=== PATIENT | female | born 1970 | race Caucasian/White ===

== ENCOUNTER → 2016-09-13 | Outpatient (CLI) | payer OTHER ==
[2016-09-13 07:24] LABS: CH 29.9; CHCM 32.6; HCT 40.3 % (34.0-46.0); HDW 2.13; HGB 13.3 gm/dL (11.4-16.0); MCH 30.3 pg (25.0-35.0); MCHC 32.9 g/dL (31.0-37.0); MCV 92.2 fL (80.0-100.0); Mean Platelet Volume 7.7; RBC 4.38 m/uL (3.80-5.40); RDW 12.8 % (11.5-15.5); WBC 6.3 k/uL (3.8-10.6)
[2016-09-13 07:27] LABS: Appearance,Urine Clear (Clear); Bacteria,Urine Few /hpf; Bilirubin,Urine Negative (Negative); Glucose,Urine (UA) Negative (Negative); Ketones,Urine Negative (Negative); Leukocyte Esterase,Urine Small (Negative); Mucus,Urine Rare /hpf; Nitrite,Urine Negative (Negative); PH, Urine 5.5 (5.0-8.0); Particle Count 2643; Protein,Urine Negative (Negative); RBC,Urine <1 /hpf (0-5); Specific Gravity,Urine 1.015 (1.001-1.035); Squamous Epithelial Cell,Urine 2 /hpf (0-4); UA Billing (MACRO vs. MICRO) MICRO; Urobilinogen,Urine <2.0 mg/dL (<2.0); WBC,Urine 2 /hpf (0-5)
[2016-09-13 07:47] LABS: ALT 41 U/L (9-52); AST 22 U/L (14-36); Alkaline Phosphatase 103 U/L (38-126); Anion Gap 10 mmol/L; Blood Urea Nitrogen 15 mg/dL (7-17); Calcium 9.2 mg/dL (8.4-10.2); Carbon Dioxide 24 mmol/L (22-30); Chloride 108 mmol/L (98-107); Cholesterol 185 mg/dL (<200); Glucose 88 mg/dL (74-99); HDL Cholesterol 73 mg/dL (40-60); Non-African American GFR(MDRD) >60 (>60 ml/min/1.73 sqM); Potassium 4.8 mmol/L (3.5-5.1); Sodium 142 mmol/L (137-145); Total Bilirubin 0.6 mg/dL (0.2-1.3); Total Protein 6.7 g/dL (6.3-8.2); Triglycerides 64 mg/dL (<150)
--- NOTE | 2016-09-13 08:10 | XR ---
EXAMINATION TYPE: XR chest 2V DATE OF EXAM: 09/13/2016 7:12 AM COMPARISON: Prior chest x-ray December 13, 2015. HISTORY: COPD TECHNIQUE: Frontal and lateral views of the chest are obtained. FINDINGS: There is no focal air space opacity, pleural effusion, or pneumothorax seen. The cardiac silhouette size is within normal limits. The osseous structures are intact. IMPRESSION: No acute cardiopulmonary process. No significant change from prior.
[2016-09-13 08:14] LABS: Hemoglobin A1C 5.3 % (4.2-6.1)
== END | disposition home or self-care (01) ==
LOC: LABWHC1 06:47
PROVIDERS: ATTEND Internal Medicine
DX: J44.9 Chronic obstructive pulmonary disease, unspecified (principal); K21.0 Gastro-esophageal reflux disease with esophagitis; I11.9 Hypertensive heart disease without heart failure; E78.2 Mixed hyperlipidemia; E73.9 Lactose intolerance, unspecified; R35.0 Frequency of micturition
CPT/HCPCS: 36415; 71020; 80053; 80061; 81001; 83036; 84439; 84443; 85027

== ENCOUNTER → 2016-11-01 | Outpatient (CLI) | payer OTHER ==
--- NOTE | 2016-11-01 22:38 | WWHP ---
DATE OF DICTATION: 11/01/2016 CHIEF COMPLAINT: The patient is here for her routine gynecologic exam. HISTORY OF PRESENT ILLNESS: This is a 46-year-old G0 with an LMP of 2014. The patient states she has occasional urge incontinence. She tends to have to urinate fairly frequently and sometimes she does not get to the bathroom in time. She has had her urine checked on different occasions because of these symptoms and apparently the results were negative for infection. She denies nocturia. She states hot flashes are tolerable. She denies any postmenopausal bleeding. PAST MEDICAL HISTORY: 1. Depression. 2. Arthritis. 3. Asthma. 4. Gastroesophageal reflux disease. Dr. Stanford is her primary care physician. MEDICATIONS: 1. Cymbalta 60 mg daily. 2. Voltaren 75 mg b.i.d. 3. Fluticasone drops as directed. 4. Zyrtec 1 at bedtime. 5. Singulair 1 daily. 6. Ranitidine 1 daily. 7. Motrin 800 mg as directed. 8. Ultram t.i.d. p.r.n. 9. Spiriva inhaler daily. 10. Asmanex inhaler daily. 11. Flexeril as directed. ALLERGIES: NO KNOWN DRUG ALLERGIES. PAST SURGICAL HISTORY: 1. Laparotomy with ovarian cyst removal. 2. Appendectomy in 1989. 3. Arthroscopic knee surgery in 2011. 4. Finger surgery in 2009. 5. She states she had a right breast biopsy in the past. 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 FAMILY HISTORY: Unchanged from the 2015 H&P. SOCIAL HISTORY: She smokes about 3/4 pack of cigarettes per day, has about 12 alcoholic drinks per week and admits to using marijuana but denies any other drug use. The patient is homosexual and states she is not seeing anybody at this time and has not been sexually active in quite some time. 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 REVIEW OF SYSTEMS: She has lost about 55 pounds with changing her diet. She denies respiratory, cardiac or GI problems. PHYSICAL EXAM: Blood pressure 120/83. Height 5 feet 3 inches. Weight 192 pounds. Temperature 96.0, pulse 83. This is a well-developed, well-nourished white female who is alert and oriented x3, in no acute distress. HEENT is within normal limits. NECK: Supple without mass or thyromegaly. CHEST AND LUNGS: Clear to auscultation. HEART: Regular rate and rhythm. Breasts are without mass or discharge. Axillary exam is negative for adenopathy. BACK: Negative for CVA tenderness. ABDOMEN: Soft, nontender, without palpable masses. PELVIC EXAM: Normal external genitalia. Cervix and vagina appear normal. There is no evidence of prolapse. There is no unusual discharge. The uterus is midposition, nongravid size and nontender. There are no palpable adnexal masses or tenderness. Upon palpating the bladder, the patient does state she gets a sense of some urge to go, and the bladder feels somewhat full at this time. Rectal exam is negative for mass or tenderness and is negative for occult blood. EXTREMITIES: Nontender. IMPRESSION: 1. A 46-year-old postmenopausal female with normal gynecologic exam. 2. Occasional urinary urgency and urge incontinence. This may also represent overflow incontinence. PLAN: 1. Pap smear was deferred, since she had a normal one less than 2 years ago. 2. Self breast examination was discussed. 3. Mammogram will be due in 02/26, and a slip was given to the patient for this. 4. We had a long discussion regarding urge incontinence. I have recommended she do timed voids and try to empty her bladder as completely as possible with relaxation and giving herself enough time. She is to avoid bearing down to empty the bladder. She will also do Kegel exercises on a regular basis, and instructions were given to the patient on this. If she continues to have urinary issues, consider referral to a urologist. 5. She will return in one year and p.r.n.
== END | disposition home or self-care (01) ==
LOC: WWCWWP 08:57
PROVIDERS: ATTEND Obstetrics & Gynecology

== ENCOUNTER → 2017-02-19 | Outpatient (CLI) | payer OTHER ==
--- NOTE | 2017-02-20 07:32 | MM ---
Reason for exam: screening (asymptomatic). Last mammogram was performed 1 year ago. History: Patient is postmenopausal and is nulliparous. Family history of breast cancer in mother. Benign US biopsy breast VAD RT of the right breast, July 20, 2015. Physical Findings: A clinical breast exam by your physician is recommended on an annual basis and results should be correlated with mammographic findings. MG Screening Mammo w CAD Bilateral CC and MLO view(s) were taken. Prior study comparison: February 17, 2016, bilateral MG diagnostic mammo w CAD LEANN. July 20, 2015, right breast MG diagnostic mammo RT wo CAD. There are scattered fibroglandular densities. Finding: There are typically benign round calcifications in both breasts. Previous mammotome biopsy in the right breast. There is no discrete abnormality. ASSESSMENT: Benign, BI-RAD 2 RECOMMENDATION: Routine screening mammogram of both breasts in 1 year.
== END | disposition home or self-care (01) ==
LOC: RADMAMWWP 09:45
PROVIDERS: ATTEND Obstetrics & Gynecology
DX: Z12.31 Encounter for screening mammogram for malignant neoplasm of breast (principal)

== ENCOUNTER → 2017-06-27 | Outpatient (CLI) | payer OTHER ==
--- NOTE | 2017-06-27 10:52 | P.PCN ---
Date of Procedure: 06/27/17 Preoperative Diagnosis: Post menopausal bleeding Postoperative Diagnosis: Same Procedure(s) Performed: Endometrial biopsy Anesthesia: none Surgeon: Ranjit Villalta Condition: stable Disposition: same day Indications for Procedure: This is a 47-year-old G0 with an LNMP of 2014. The patient developed a small amount of vaginal bleeding 2 weeks ago. She states the blood was dark and this lasted a few days. The bleeding stopped. During the bleeding she had some period-like cramping. She has not used HRT or any medication or supplements for menopausal symptoms. Operative Findings: The uterus is mid position, non-gravid size and nontender. The uterus measured 7 cm. Small amount of tissue was obtained. Description of Procedure: The endometrial biopsy procedure was described to the patient. All of her questions were answered. The patient was placed in the lithotomy position. Bimanual examination was performed. The uterus is mid- positioned and is non- gravid size. The speculum was inserted and the cervix and vagina were prepped with betadine solution. And Allys clamp was used to grasp the anterior lip of the cervix.. The 3mm endometrial biopsy curette was placed to the fundus without difficulty. The uterus sounded to 7 cm. a [id number] rotating motion was used and a small amount of tissue was obtained and sent for pathological examination. The patient tolerated the procedure well. There were no complications. The post procedure vitals are as follows: blood pressure 133/88. pulse 85. Post procedure instructions were given to the patient.
== END ==
LOC: WWCWWP 09:13
PROVIDERS: ATTEND Obstetrics & Gynecology
DX: N93.9 Abnormal uterine and vaginal bleeding, unspecified (principal)
CPT/HCPCS: 88305

== ENCOUNTER → 2018-02-24 | Outpatient (CLI) | payer OTHER | END | disposition home or self-care (01) | LOC: LABPRL 09:35 | PROVIDERS: ATTEND Internal Medicine | DX: Z00.00 Encounter for general adult medical examination without abnormal findings (principal); J44.9 Chronic obstructive pulmonary disease, unspecified; K21.0 Gastro-esophageal reflux disease with esophagitis; M79.7 Fibromyalgia | CPT/HCPCS: 82272 ==

== ENCOUNTER → 2018-02-25 | Outpatient (CLI) | payer OTHER ==
--- NOTE | 2018-02-26 10:18 | MM ---
Reason for exam: screening (asymptomatic). Last mammogram was performed 1 year ago. History: Patient is postmenopausal and is nulliparous. Family history of breast cancer in mother. Benign US biopsy breast VAD RT of the right breast, July 20, 2015. Physical Findings: A clinical breast exam by your physician is recommended on an annual basis and results should be correlated with mammographic findings. MG Screening Mammo w CAD Bilateral CC and MLO view(s) were taken. Prior study comparison: February 19, 2017, bilateral MG screening mammo w CAD. February 17, 2016, bilateral MG diagnostic mammo w CAD LEANN. There are scattered fibroglandular densities. Finding: There are typically benign round calcifications in both breasts, greater in the right breast. Previous mammotome biopsy in the right breast. There is no discrete abnormality. ASSESSMENT: Benign, BI-RAD 2 RECOMMENDATION: Routine screening mammogram of both breasts in 1 year.
== END | disposition home or self-care (01) ==
LOC: RADMAMWWP 08:04
PROVIDERS: ATTEND Internal Medicine
DX: Z12.31 Encounter for screening mammogram for malignant neoplasm of breast (principal); Z00.00 Encounter for general adult medical examination without abnormal findings; M79.7 Fibromyalgia; K21.0 Gastro-esophageal reflux disease with esophagitis; J44.9 Chronic obstructive pulmonary disease, unspecified
CPT/HCPCS: 77067

== ENCOUNTER → 2018-02-27 | Outpatient (CLI) | payer OTHER ==
[2018-02-27 08:47] LABS: HCT 42.1 % (34.0-46.0); HGB 13.5 gm/dL (11.4-16.0); MCH 29.3 pg (25.0-35.0); MCV 91.5 fL (80.0-100.0); Platelet Count 292 k/uL (150-450); RDW 13.5 % (11.5-15.5); WBC 5.8 k/uL (3.8-10.6)
[2018-02-27 09:32] LABS: Albumin 4.3 g/dL (3.5-5.0); Calcium 9.4 mg/dL (8.4-10.2); Potassium 4.6 mmol/L (3.5-5.1); Total Bilirubin 0.5 mg/dL (0.2-1.3); Total Protein 6.8 g/dL (6.3-8.2)
[2018-02-27 09:40] LABS: T4, Free (Free Thyroxine) 1.31 ng/dL (0.78-2.19)
== END | disposition home or self-care (01) ==
LOC: LABWHC1 08:18
PROVIDERS: ATTEND Internal Medicine
DX: Z00.00 Encounter for general adult medical examination without abnormal findings (principal); M79.7 Fibromyalgia; K21.0 Gastro-esophageal reflux disease with esophagitis; J44.9 Chronic obstructive pulmonary disease, unspecified
CPT/HCPCS: 36415; 80053; 80061; 84439; 84443; 85027

== ENCOUNTER → 2018-07-17 | Outpatient (CLI) | payer OTHER ==
[2018-07-17 10:58] VITALS: BP 149/93; PULSE 101; TEMP 96.3; BMI 38.6
--- NOTE | 2018-07-17 11:54 | P.HPOB ---
History of Present Illness H&P Date: 07/17/18 Chief Complaint: The patient is here for her routine gynecologic exam. This is a 48-year-old G0 with an LMP of 2014. The patient is without gynecologic complaints and denies any postmenopausal bleeding since the small episode 13 months ago. She did have a benign endometrial biopsy on 06/27/2017. Review of Systems The patient has gained 33 pounds over the last year. This was after losing 55 pounds prior to last year. She states she is going to try to get back to eating healthier and not skipping meals. She denies respiratory, cardiac, or G.I. problems. 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 History of Any Multi-Drug Resistant Organisms: None Reported Past Surgical History: Appendectomy, Breast Surgery (Right breast biopsy) Additional Past Surgical History / Comment(s): finger surgery, hand cyst removed , left knee surgery, ovarian cyst removal (possible oophorectomy) 1989 Past Psychological History: Depression Smoking Status: Current every day smoker (Three quarters of a pack of cigarettes per day.) Past Alcohol Use History: Daily (1-2 per day) Past Drug Use History: Marijuana Additional History: The patient is homosexual and is single and is not seeing anybody at this time. 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 - Past Family History Mother Family Medical History: Cancer (Breast cancer), Coronary Artery Disease (CAD) Additional Family Medical History / Comment(s): Grandparents had an GA. Medications and Allergies Home Medications Medication Instructions Recorded Confirmed Type DULoxetine HCL [Cymbalta] 60 mg PO DAILY 02/01/16 07/17/18 History Albuterol Inhaler [Ventolin Hfa mcg INHALATION PRN 07/17/18 History Inhaler] Amitriptyline HCl [Elavil] 25 mg PO HS 07/17/18 07/17/18 History Atorvastatin [Lipitor] 20 mg PO DAILY 07/17/18 07/17/18 History Cetirizine HCl [Zyrtec] mg PO DAILY 07/17/18 History Cyclobenzaprine [Flexeril] 10 mg PO BID 07/17/18 07/17/18 History Diclofenac Sodium [Voltaren] 75 mg PO BID 07/17/18 07/17/18 History Fluticasone Propionate [Flovent mcg PO BID 07/17/18 History Diskus] Fluticasone/Salmeterol PO BID 07/17/18 History [Fluticasone-Salmeterol 113-14] Montelukast [Singulair] 10 mg PO DAILY 07/17/18 07/17/18 History Allergies Allergy/AdvReac Type Severity Reaction Status Date / Time No Known Allergies Allergy Verified 07/17/18 10:57 Exam Vital Signs Temp Pulse BP 07/17/18 10:37 96.3 F L 101 H 149/93 Intake and Output 07/16/18 07/17/18 07/17/18 22:59 06:59 14:59 Other: Weight 102.058 kg Height 5'4", waits 225 pounds, BMI 38.6. This is a well-developed well-nourished heavyset white female who is alert and oriented times 3 in no acute distress. HEENT: Within normal limits. NECK: Supple without mass or thyromegaly. CHEST AND LUNGS: Clear to auscultation. HEART: Regular rate and rhythm. BREASTS: Are without mass or discharge. AXILLARY EXAM: Negative for adenopathy. BACK: Negative for CVA tenderness. ABDOMEN: Soft, obese, nontender, without palpable masses. PELVIC EXAM: Normal external genitalia with mild atrophy. Cervix and vagina appear normal with mild atrophy. There is no unusual discharge. There is no evidence of prolapse. The uterus is midposition, nongravid size and nontender. There are no palpable adnexal masses or tenderness. RECTAL EXAM: rectovaginal exam is negative for mass or tenderness and is negative for occult blood. EXTREMITIES: Nontender. IMPRESSION: 1. 48-year-old menopausal female with normal gynecologic exam. 2. No further postmenopausal bleeding after the endometrial biopsy was done for small bleeding 13 months ago. PLAN: 1. Pap smear was performed. 2. Self breast awareness was discussed with the patient. 3. Screening mammogram was done on 02/25/2017 and was negative. She will repeat this in one year. 4. Osteoporosis prevention was discussed. I have stressed the importance of adequate calcium, vitamin D and regular exercise. Recommended amounts of calcium and vitamin D were also discussed. 5. I have recommended that she quit smoking, or at least cut back as much as possible. We have discussed reasons why this is important. 6. She will return in one year.
== END ==
LOC: WWCWWP 10:25
PROVIDERS: ATTEND Obstetrics & Gynecology
DX: Z53.9 Procedure and treatment not carried out, unspecified reason (principal)

== ENCOUNTER → 2018-07-17 | Outpatient (CLI) | payer OTHER | END | disposition home or self-care (01) | LOC: LABWHC1 09:59 | PROVIDERS: ATTEND Internal Medicine | DX: E78.2 Mixed hyperlipidemia (principal) | CPT/HCPCS: 36415; 80061; 82550; 84450; 84460 ==

== ENCOUNTER → 2018-11-05 | Outpatient (CLI) | payer OTHER ==
[2018-11-05 07:19] LABS: HCT 39.2 % (34.0-46.0); HGB 12.9 gm/dL (11.4-16.0); MCHC 32.9 g/dL (31.0-37.0); MCV 91.2 fL (80.0-100.0); Mean Platelet Volume 7.8; Platelet Count 235 k/uL (150-450); WBC 6.6 k/uL (3.8-10.6)
[2018-11-05 07:24] LABS: INR 0.9 (<1.2); Partial Thromboplastin Time 23.7 sec (22.0-30.0); Prothrombin Time 9.7 sec (9.0-12.0)
[2018-11-05 07:26] LABS: Anion Gap 6 mmol/L; Blood Urea Nitrogen 10 mg/dL (7-17); Calcium 9.5 mg/dL (8.4-10.2); Carbon Dioxide 26 mmol/L (22-30); Chloride 108 mmol/L (98-107); Glucose 89 mg/dL (74-99); Potassium 4.5 mmol/L (3.5-5.1); Sodium 140 mmol/L (137-145)
--- NOTE | 2018-11-05 08:02 | XR ---
EXAMINATION TYPE: XR chest 2V DATE OF EXAM: 11/05/2018 COMPARISON: September 13, 2016 HISTORY: Chest pain TECHNIQUE: Frontal and lateral views of the chest are obtained. FINDINGS: There is no focal air space opacity. No evidence for pneumothorax. No pleural effusion. The cardiac silhouette size is within normal limits. The osseous structures are grossly intact. IMPRESSION: 1. No acute cardiopulmonary process.
[2018-11-05 09:14] LABS: Appearance,Urine Clear (Clear); Bilirubin,Urine Negative (Negative); Blood,Urine Negative (Negative); Color,Urine Light Yellow; Glucose,Urine (UA) Negative (Negative); Ketones,Urine Negative (Negative); Leukocyte Esterase,Urine Negative (Negative); Nitrite,Urine Negative (Negative); Protein,Urine Negative (Negative); Specific Gravity,Urine 1.005 (1.001-1.035); Urobilinogen,Urine <2.0 mg/dL (<2.0)
== END | disposition home or self-care (01) ==
LOC: RADXRMAIN 06:04
PROVIDERS: ATTEND Internal Medicine
DX: Z01.818 Encounter for other preprocedural examination (principal); J44.9 Chronic obstructive pulmonary disease, unspecified; R35.0 Frequency of micturition; D68.9 Coagulation defect, unspecified; I49.9 Cardiac arrhythmia, unspecified
CPT/HCPCS: 71046; 80048; 81003; 85027; 85610; 85730; 93005

== ENCOUNTER → 2019-03-12 | Outpatient (CLI) | payer OTHER ==
--- NOTE | 2019-03-12 10:51 | XR ---
EXAMINATION TYPE: XR lumbosacral spine min 4V DATE OF EXAM: 03/12/2019 COMPARISON: 12/30/2014 HISTORY: 48-year-old female arthritis, low back pain, radiculopathy. TECHNIQUE: 5 views FINDINGS: Degenerated levoconvex curvature along the upper lumbar spine. No pars interarticularis defect. Hyper trophic facet arthropathy throughout. Moderate to advanced disc/endplate degenerative change from L2 to S1 levels, progressed from 12/30/2014. Grade 1 retrolisthesis at L2-L3 and L3-L4 and grade 1 anterolisthesis at L4-L5. Vertebral body heights are preserved. Additional endplate spondylosis visualized lower thoracic spine IMPRESSION: As compared to 2014, there has been progression to a degenerated levoconvex curvature along the upper lumbar spine. Advanced degenerative disc disease now present from L2 through S1 levels along with hy pertrophic facet arthropathy and degenerative grade 1 spondylolisthesis from L2 through L5 levels.
--- NOTE | 2019-03-12 10:53 | XR ---
EXAMINATION TYPE: XR Hip Bilateral Complete DATE OF EXAM: 03/12/2019 COMPARISON: NONE HISTORY: 48-year-old female I lateral hip pain TECHNIQUE: 2 views each side FINDINGS: Mild marginal spurring along the right acetabular margin and posterior right femoral head neck juncti on. No acute fracture, subluxation, or dislocation seen on either side. IMPRESSION: Mild right hip OA. No acute osseous abnormality seen on either side.
== END | disposition home or self-care (01) ==
LOC: RADXRMAIN 09:39
PROVIDERS: ATTEND Internal Medicine
DX: M16.11 Unilateral primary osteoarthritis, right hip (principal); M51.17 Intervertebral disc disorders with radiculopathy, lumbosacral region; M43.16 Spondylolisthesis, lumbar region; M46.96 Unspecified inflammatory spondylopathy, lumbar region
CPT/HCPCS: 72110; 73521

== ENCOUNTER → 2019-07-02 | Outpatient (CLI) | payer OTHER ==
[2019-07-02 12:53] VITALS: BP 126/86; PULSE 98; RESP 16
--- NOTE | 2019-07-02 14:32 | P.PAINCN ---
History of Present Illness - Reason for Consult Consult date: 07/02/19 - History of Present Illness This is a 49-year-old patient referred by Dr. Allen with a chief complaint of chronic pain in bilateral low back, radiating to bilateral lateral thighs. She states that she initially noticed the pain in her right lateral thigh, approximately 5 years ago and then left lateral thigh, approximately 2 years ago. The pain in her back began later. She describes several episodes of "charley horses" in multiple different locations in bilateral lower extremities. Pain is described as sharp, stabbing, burning, associated with numbness and tingling in bilateral lateral thighs. She denies leg weakness. Pain is worse with walking, standing, better with bending forward, chiropractic therapy, Voltaren gel and Flexeril. Positive shopping cart sign. 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 She is many extremely difficult to work. She was evaluated by Dr. Allen, who recommended interventional pain management prior to consideration of posterior lumbar decompression and fusion at L2-3, L 34, L 5S1. The patient states that she cannot be off work for the amount of time it would take to recover from lumbar surgery, she is the only one caring for herself. Patient also denies new-onset weakness, bowel/bladder incontinence, or any other signs or symptoms of cauda equina syndrome. There are no signs of acute intoxication, and no indications of medication diversion or overuse. She does use marijuana daily to help with pain. She also has significant pain in her left shoulder, she follows with an orthopedic surgeon for this in last underwent a steroid injection in May. Patient HAS NOT had injections in her low back previously. Patient HAS NOT had physical therapy recently for her low back, although she recently completed physical therapy for left shoulder. In addition to above, 13-point review of systems is also negative for chest pain, shortness of breath, changes in vision, changes in hearing, new onset weakness, abdominal pain, diarrhea, extreme fatigue, malaise, fever, skin changes, homicidal or suicidal ideation, or bowel or bladder incontinence. 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 History of Any Multi-Drug Resistant Organisms: None Reported Past Surgical History: Appendectomy, Breast Surgery, Orthopedic Surgery Additional Past Surgical History / Comment(s): finger surgery, hand cyst removed, left knee surgery, ovarian cyst removal (oophorectomy) 1989, breast biopsy, left shoulder surg. Past Anesthesia/Blood Transfusion Reactions: No Reported Reaction Smoking Status: Current every day smoker Past Alcohol Use History: Daily (Patient drinks 6 shots per day of hard liquor), Heavy Past Drug Use History: Marijuana (Daily) - Past Family History Mother Family Medical History: Cancer, Coronary Artery Disease (CAD) Additional Family Medical History / Comment(s): Grandparents had an SD. Medications and Allergies Home Medications Medication Instructions Recorded Confirmed Type DULoxetine HCL [Cymbalta] 60 mg PO DAILY 02/01/16 06/27/19 History Albuterol Inhaler [Ventolin Hfa 90 mcg INHALATION Q6H PRN 07/17/18 06/27/19 History Inhaler] Atorvastatin [Lipitor] 20 mg PO DAILY 07/17/18 06/27/19 History Cetirizine HCl [Zyrtec] 10 mg PO DAILY 07/17/18 06/27/19 History Cyclobenzaprine [Flexeril] 10 mg PO BID 07/17/18 06/27/19 History Diclofenac Sodium [Voltaren] 75 mg PO BID 07/17/18 06/27/19 History Fluticasone/Salmeterol 1 dose INHALATION BID 07/17/18 06/27/19 History [Fluticasone-Salmeterol 113-14] Montelukast [Singulair] 10 mg PO DAILY 07/17/18 06/27/19 History Fluticasone Nasal Hollins [Flonase 2 spr EA NOSTRIL BID 06/27/19 06/27/19 History Nasal Hollins] Lisinopril [Zestril] 5 mg PO DAILY 06/27/19 06/27/19 History Omeprazole [PriLOSEC] 20 mg PO AC-BID 06/27/19 06/27/19 History Allergies Allergy/AdvReac Type Severity Reaction Status Date / Time No Known Allergies Allergy Verified 06/27/19 14:26 Physical Exam Physical exam: Vital Signs: Reviewed in EMR GENERAL: Well appearing, in no acute distress, obese PSYCH: Mood and affect is appropriate. Awake, alert, and oriented SKIN: Skin color, texture, turgor normal, no rashes or lesions HEENT: Normocephalic, atraumatic. EOM intact CV: No pedal edema RESP: Respirations are unlabored, no audible wheezing GI: Abdomen non-distended MUSCULOSKELETAL: Bilateral lower extremity strength is normal and symmetric. No atrophy or tone abnormalities are noted. Lumbar spine: Straight leg raising in the sitting position is negative for radicular pain. Tenderness to palpation over the lumbar spine and paraspinous muscles bilaterally. Negative for pain with facet loading and back extension/rotation. Buttocks: No pain to palpation over the PSIS, Ramon test is negative Extremities: Peripheral joint ROM is full and pain free without obvious instability or laxity in all four extremities. No edema or skin discolorations noted. Tenderness to palpation over right greater trochanter area. Gait: Gait is normal NEUR: Bilateral lower extremity coordination and muscle stretch reflexes are physiologic and symmetric. Negative clonus. Reduced sensation to light touch noted in bilateral lateral thighs, up to knees. Cranial nerves are grossly intact. Results Results: Imaging: X-ray lumbar spine done on 03/12/2019 shows advanced degenerative disc disease from L2 through S1 along with hypertrophic facet arthropathy and grade 1 spondylolisthesis from L2 to L5 levels MRI lumbar spine done at [facility] on 05/19/2019 shows at L2-3 moderate central canal stenosis, lateral recess stenosis right greater than left with contact of the L3 nerve roots right greater than left and moderate to severe neuroforaminal stenosis bilaterally. At L3-4 moderate to severe central canal stenosis, lateral recess stenosis with contact of the L4 nerve roots left greater than right and moderate bilateral neuroforaminal stenosis. At L4-5 severe central canal stenosis, lateral recess stenosis with contact of L5 nerve roots and severe left/mild right neuroforaminal stenosis. At L5-S1 mild central canal stenosis, lateral recess stenosis and moderate severe right/moderate left foraminal stenosis. Assessment and Plan Assessment: 1. Lumbar radiculopathy 2. Lumbar central spinal stenosis, lumbar degenerative disc disease, facet arthropathy 3. Obesity Plan: 1. Explanation: We discussed that her interventional pain procedures are designed to target pain, they do not alter the degeneration or spinal stenosis that is present. She expressed understanding. We also discussed that if our procedures do not have significant benefit, she will likely need surgery given her severe disease. 2. Opioid agreement: None 3. Counseling: The patient was counseled on the importance of EXERCISE. She does not have any physical therapy sessions left until August 2019, at which time we will plan on providing her with a prescription for home exercise therapy 4. Procedures: We'll schedule bilateral L34 lumbar transforaminal epidural steroid injection, given her primarily bilateral lateral thigh pain. In the future, could consider L4-5 TFESI. 5. Consultations: None 6. Investigations: MRI and x-rays reviewed 7. Medications: Patient was instructed to take calcium plus vitamin D supplementation daily. She can continue to take magnesium for cramping. 8. Disposition: For above-mentioned procedure PQRS Measure Charge Sheet Measure #130: Documentation of Current Meds in Medical Chart: Patient's medications documented in chart Measure #226: Tobacco Use: Screen & Cessation Intervention: Pt screened for tobacco use AND intervention given Measure #111: Pneumonia Vaccination: Pneumococcal vaccine administered or previously received Measure #47: Advance Care Plan: Advance care planning discussed & documented, pt chose/unable to give Measure #412: Opioid Treatment Agreement: No documentation of signed opioid treatment agreement Measure #317: Preventitive Care & Scrn High Bld Press & F/U: Normal blood pressure, f/u not required Measure #128: Body Mass Index (BMI) Screening & Follow-up: BMI documented ABOVE normal parameters - f/u documented Measure #131: Pain Assessment & Follow-up: Pain positive & plan documented, Follow-up scheduled Measure #431: Unhealthy Alcohol Use Preventative Care & Scrn: Patient identified as unhealthy alcohol user; counseling given PQRS Narrative: Smoking Status Current every day smoker Pain Intensity [Lower Back] 4 Scale Used Numeric (1 - 10) Hx Alcohol Use (MH) Yes Home Medications: Ambulatory Orders DULoxetine HCL [Cymbalta] 60 mg PO DAILY 02/01/16 Albuterol Inhaler [Ventolin Hfa Inhaler] 90 mcg INHALATION Q6H PRN 07/17/18 Atorvastatin [Lipitor] 20 mg PO DAILY 07/17/18 Cetirizine HCl [Zyrtec] 10 mg PO DAILY 07/17/18 Cyclobenzaprine [Flexeril] 10 mg PO BID 07/17/18 Diclofenac Sodium [Voltaren] 75 mg PO BID 07/17/18 Fluticasone/Salmeterol [Fluticasone-Salmeterol 113-14] 1 dose INHALATION BID 07/17/18 Montelukast [Singulair] 10 mg PO DAILY 07/17/18 Fluticasone Nasal Hollins [Flonase Nasal Hollins] 2 spr EA NOSTRIL BID 06/27/19 Lisinopril [Zestril] 5 mg PO DAILY 06/27/19 Omeprazole [PriLOSEC] 20 mg PO AC-BID 06/27/19
== END | disposition home or self-care (01) ==
LOC: PNWHC3 12:34
PROVIDERS: ATTEND Anesthesiology
DX: M48.061 Spinal stenosis, lumbar region without neurogenic claudication (principal); M51.16 Intervertebral disc disorders with radiculopathy, lumbar region; M46.96 Unspecified inflammatory spondylopathy, lumbar region; E66.9 Obesity, unspecified; J45.909 Unspecified asthma, uncomplicated; E78.5 Hyperlipidemia, unspecified; I10 Essential (primary) hypertension; M19.90 Unspecified osteoarthritis, unspecified site; F17.200 Nicotine dependence, unspecified, uncomplicated; Z68.34 Body mass index [BMI] 34.0-34.9, adult; Z79.1 Long term (current) use of non-steroidal anti-inflammatories (NSAID); Z79.51 Long term (current) use of inhaled steroids; Z79.899 Other long term (current) drug therapy
CPT/HCPCS: 99211

== ENCOUNTER 2019-07-09 05:59 | Day surgery (SDC) | payer OTHER ==
[2019-07-09 06:32] VITALS: RESP 18; TEMP 98
[2019-07-09] MEDS: LACTATED RINGERS 1,000 ML IV SCH ×2 (06:40→07:04)
[2019-07-09 06:41] LABS: Glucose,Whole Blood 94 mg/dL (75-99)
--- NOTE | 2019-07-09 07:25 | P.PCN ---
Date of Procedure: 07/09/19 Procedure(s) Performed: PREOPERATIVE DIAGNOSIS: Lumbar radiculopathy POSTOPERATIVE DIAGNOSIS: Lumbar radiculopathy Attending physician: Gwendolyn Richards M.D. PROCEDURE 1. Transforaminal epidural steroid injection under fluoroscopic guidance L3-4 level, bilateral side 2. Lumbar epidurogram ANESTHESIA: Local with 1% lidocaine 3 ml ; IV sedation with Versed and fentanyl , sedation time 12 minutes PROCEDURE INDICATION: The patient with low back pain and radiculopathy symptoms unresponsive to conservative treatment. Fluoroscopy was used for the procedure and fluoroscopic images were saved to the radiology portion of patient's chart. PROCEDURE DESCRIPTION / TECHNIQUE: The patient was seen and identified in the preoperative area. Risks, benefits, complications, and alternatives were discussed with the patient. The patient agreed to proceed with the procedure and signed the consent. IV was started, and vital signs were stable. Patient was taken to the OR and time out was completed. The patient was placed in the prone position on procedure table and a pillow was placed under the abdomen to reduce lumbar lordosis. The lumbosacral area was prepped and draped in the usual sterile fashion. Vital signs were closely monitored during the procedure. Conscious sedation was used. Using oblique fluoroscopy, the chin of the ``Sandeep dog and the skin and deeper tissues just below was localized with 1% lidocaine. Subsequently, a 22- gauge 3.5-inch spinal needle was advanced under a tunneled view fluoroscopic guidance just underneath the chin of the ``Sandeep dog . Under lateral fluoroscopy, the needle was then advanced to the posterior border of the foramen. After negative aspiration of CSF and blood and with no paresthesias, 1 mL of Isovue-200 contrast dye was injected under live fluoroscopy and there was no evidence of intravascular injection. The injectate solution consisting of 7.5 mg of dexamethasone with 1 mL of 1% lidocaine was then delivered at each site. A total of 15 mg of dexamethasone was used. The needle was withdrawn intact. At the end of the procedure, skin was cleansed, and bandages were applied. COMPLICATIONS: None COMMENTS: DISPOSITION / PLANS: The patient was placed in a supine position and transferred to the recovery area in a stable condition for observation. There was no evidence of lower extremity motor or sensory deficit after the procedure. Patient was discharged from the recovery room after meeting discharge criteria. Home discharge instructions were given to the patient by the staff. The patient will follow up in clinic in 2-4 weeks.
[2019-07-09] MEDS ORDERED: IV FLUID CONTINUATION 1,000 ML IV ONE ×2 (07:27)
[2019-07-09 07:43] VITALS: BP 146/85; PULSE 83
--- NOTE | 2019-07-09 08:50 | FL ---
Fluoroscopy INDICATION: Pain FINDINGS: Fluoroscopy time: 0.13 seconds. Images obtained: 0. IMPRESSIONS: 1. Documentation of fluoroscopy.
== END 2019-07-09 07:54 | disposition home or self-care (01) ==
LOC: ORPAIN 05:59
PROVIDERS: ATTEND Anesthesiology
DX: G89.29 Other chronic pain (principal); M51.16 Intervertebral disc disorders with radiculopathy, lumbar region; M47.26 Other spondylosis with radiculopathy, lumbar region; M48.061 Spinal stenosis, lumbar region without neurogenic claudication; E66.9 Obesity, unspecified; M62.831 Muscle spasm of calf; M25.512 Pain in left shoulder; J45.909 Unspecified asthma, uncomplicated; K21.9 Gastro-esophageal reflux disease without esophagitis; E78.5 Hyperlipidemia, unspecified; I10 Essential (primary) hypertension; M19.90 Unspecified osteoarthritis, unspecified site; F17.210 Nicotine dependence, cigarettes, uncomplicated; Z68.34 Body mass index [BMI] 34.0-34.9, adult; Z90.49 Acquired absence of other specified parts of digestive tract; Z98.890 Other specified postprocedural states; Z90.721 Acquired absence of ovaries, unilateral; Z79.899 Other long term (current) drug therapy; Z79.51 Long term (current) use of inhaled steroids; Z80.9 Family history of malignant neoplasm, unspecified; Z82.49 Family history of ischemic heart disease and other diseases of the circulatory system
CPT/HCPCS: 64483; J2250; J1100; J3010; Q9966; 99152

== ENCOUNTER 2019-08-18 08:09 | Day surgery (SDC) | payer OTHER ==
[2019-08-08 15:28] VITALS: BMI 34.2
[~2019-08-18 08:09] MED LIST: BUPIVACAINE (PF) 0.5% 30 ML VIAL ONE; IOPAMIDOL M200 10 ML VIAL ONE; LACTATED RINGERS 1,000 ML IV SCH; MIDAZOLAM 2 MG/2 ML VIAL ONE; fentaNYL (PF) 50 MCG/ML 2 ML AMP ONE; methylPREDNISolone ACETATE 40 MG/ML 1 ML VIAL ONE
[2019-08-18] MEDS ORDERED: LIDOCAINE 1% 20 ML VIAL (10MG/ML) FOR IV START SQ ONE (10:05)
[2019-08-18 10:11] VITALS: RESP 16; TEMP 97.3
[2019-08-18] MEDS ORDERED: IV FLUID CONTINUATION 700 ML IV ONE (10:32)
--- NOTE | 2019-08-18 10:33 | P.PCN ---
Date of Procedure: 08/18/19 Procedure(s) Performed: PREOPERATIVE DIAGNOSIS: Lumbar radiculopathy POSTOPERATIVE DIAGNOSIS: Lumbar radiculopathy Attending physician: Gwendolyn Richards M.D. PROCEDURE 1. Transforaminal epidural steroid injection under fluoroscopic guidance L3-4 level, bilateral side 2. Lumbar epidurogram ANESTHESIA: Local with 1% lidocaine 3 ml ; IV sedation with Versed and fentanyl , sedation time 13 minutes PROCEDURE INDICATION: The patient with low back pain and radiculopathy symptoms unresponsive to conservative treatment. Fluoroscopy was used for the procedure and fluoroscopic images were saved to the radiology portion of patient's chart. PROCEDURE DESCRIPTION / TECHNIQUE: The patient was seen and identified in the preoperative area. Risks, benefits, complications, and alternatives were discussed with the patient. The patient agreed to proceed with the procedure and signed the consent. IV was started, and vital signs were stable. Patient was taken to the OR and time out was completed. The patient was placed in the prone position on procedure table and a pillow was placed under the abdomen to reduce lumbar lordosis. The lumbosacral area was prepped and draped in the usual sterile fashion. Vital signs were closely monitored during the procedure. Conscious sedation was used. Using oblique fluoroscopy, the chin of the ``Sandeep dog and the skin and deeper tissues just below was localized with 1% lidocaine. Subsequently, a 22- gauge 5-inch spinal needle was advanced under a tunneled view fluoroscopic guidance just underneath the chin of the ``Sandeep dog . Under lateral fluoroscopy, the needle was then advanced to the posterior border of the foramen. After negative aspiration of CSF and blood and with no paresthesias, 1 mL of Isovue-200 contrast dye was injected under live fluoroscopy and there was no evidence of intravascular injection. The injectate solution consisting of 7.5 mg of dexamethasone with 1 mL of 1% lidocaine was then delivered at each site. A total of 15 mg of dexamethasone was used. The needle was withdrawn intact. At the end of the procedure, skin was cleansed, and bandages were applied. COMPLICATIONS: None COMMENTS: DISPOSITION / PLANS: The patient was placed in a supine position and transferred to the recovery area in a stable condition for observation. There was no evidence of lower extremity motor or sensory deficit after the procedure. Patient was discharged from the recovery room after meeting discharge criteria. Home discharge instructions were given to the patient by the staff. The patient will follow up in clinic in 2-4 weeks.
--- NOTE | 2019-08-18 10:42 | FL ---
EXAMINATION TYPE: FL guided pain mgmt statistic DATE OF EXAM: 08/18/2019 FLUOROSCOPY Fluoroscopy time of 11 seconds was used during transforaminal steroid injection bilaterally. 10 imag e/s document/s the procedure.
[2019-08-18 10:46] VITALS: BP 142/90; PULSE 88
== END 2019-08-18 10:58 | disposition home or self-care (01) ==
LOC: ORPAIN 08:09
PROVIDERS: ATTEND Anesthesiology
DX: M54.16 Radiculopathy, lumbar region (principal)
CPT/HCPCS: 64483; J2250; J1030; J3010; 99152

== ENCOUNTER → 2019-09-16 | Outpatient (CLI) | payer OTHER ==
[2019-09-16 13:46] VITALS: BP 125/80; PULSE 103; RESP 18
--- NOTE | 2019-09-16 14:24 | P.PN ---
Subjective Progress Note Date: 09/16/19 This is a 49-year-old lady with history of chronic lower back pain with radiation to the lower extremities. The patient has severe central canal stenosis and lumbar facet arthropathy. She had transforaminal epidural steroid injection previously which helped her leg pain significantly. However the patient feels increasing pain in her lower back across her lower back. The patient denies any history of diabetes or taking any anticoagulants. She still has a full-time job. Patient denies new-onset weakness, bowel/bladder incontinence, or any other signs or symptoms of cauda equina syndrome. There are no signs of acute intoxication, and no indications of medication diversion or overuse. In addition to above, 13-point review of systems is also negative for chest pain, shortness of breath, changes in vision, changes in hearing, new onset weakness, abdominal pain, diarrhea, extreme fatigue, malaise, fever, skin changes, homicidal or suicidal ideation, or bowel or bladder incontinence. Vital Signs: Reviewed in EMR Gen: AAOx3, NAD HEENT: PERRLA,hearing grossly normal Pulm: resp unlabored Heart: Regular Neck: supple, trachea midline Neuro exam of the lower extremities: Normal muscle strength in the lower extremities bilaterally Tenderness in the paravertebral musculature: Positive tenderness in the lumbar paravertebral musculature bilaterally Facet loading test is positive Neuro: CN II-XII grossly intact, Imaging: Reviewed in EMR/chart Assessment: Morbid obesity Marijuana use Lumbar spondylosis without myelopathy Severe central lumbar stenosis Plan: 1. Explanation: Opioid and psychological risk scores were reviewed. Diagnoses, prognoses, and multiple treatment options including but not limited to physical therapy, interventional therapies, adjuvant medical therapies, narcotic medication therapies, and surgery were discussed with the patient and all questions were answered to the patient's satisfaction. 2. Opioid agreement: Signed with the patient and the patient is warned not to use opioids while driving or before driving and not to combine opioids with benzodiazepines or alcohol. 3. Counseling: The patient was counseled extensively on SMOKING CESSATION, BODY MASS INDEX, EXERCISE. Specifically, the patient was instructed regarding the importance of smoking cessation, obesity, and exercise in the context of both chronic pain and overall health. 4. Procedures: Schedule for a diagnostic lumbar medial branch block under fluoroscopic guidance for levels L3 4, L4-L5, and L5-S1 5. Consultations: None 6. Investigations: None 7. Medications: None 8. Disposition: Return to the above-mentioned procedure in a few weeks 9. Maps were reviewed and were appropriate. Objective - Vital Signs Vital signs: Vital Signs Temp Pulse 103 H 09/16/19 13:42 Resp 18 09/16/19 13:42 BP 125/80 09/16/19 13:42 Pulse Ox 99 09/16/19 13:42
== END | disposition home or self-care (01) ==
LOC: PNWHC3 12:50
PROVIDERS: ATTEND Anesthesiology
DX: M48.061 Spinal stenosis, lumbar region without neurogenic claudication (principal); M47.816 Spondylosis without myelopathy or radiculopathy, lumbar region; E66.01 Morbid (severe) obesity due to excess calories; F12.90 Cannabis use, unspecified, uncomplicated; Z68.34 Body mass index [BMI] 34.0-34.9, adult
CPT/HCPCS: 99211

== ENCOUNTER → 2019-10-01 | Day surgery (SDC) | payer OTHER ==
[2019-09-29 12:59] VITALS: BMI 34.9
[~2019-10-01] MED LIST changes: -BUPIVACAINE (PF) 0.5% 30 ML VIAL ONE; -IOPAMIDOL M200 10 ML VIAL ONE; +IV FLUID CONTINUATION 1,000 ML IV ONE; +LACTATED RINGERS 1,000 ML IV ONE; -LACTATED RINGERS 1,000 ML IV SCH; +ROPIVACAINE 5MG/ML 20ML VIAL ONE; -fentaNYL (PF) 50 MCG/ML 2 ML AMP ONE; -methylPREDNISolone ACETATE 40 MG/ML 1 ML VIAL ONE
[2019-10-01 09:12] VITALS: RESP 16; TEMP 96.9
--- NOTE | 2019-10-01 10:15 | P.PCN ---
Date of Procedure: 10/01/19 Description of Procedure: Procedure: BILATERAL L3-4, L4-5, L5-S1 Diagnosis: Lumbar spondylosis without myelopathy Anesthesia: Local and 2 mg of Versed Imaging: Fluoroscopy was used, images where saved to the medical record The patient was seen and examined in the [facility]. Procedure risks and benefits were fully reviewed with the patient. The patient understands this is a diagnostic if local only is used, as will be the case today. The goal of the procedure is to inject medication onto the medial branch or small nerves that innervate the facet joints. In this way, we can hopefully identify which of these joints, if any, may be contributing to their pain. Informed consent for procedure was obtained. The patient was taken into the office fluoroscopy procedure room and placed prone on the table. A pillow was placed under the abdomen to reduce lumbar lordosis. Vital signs were closely monitored during the procedure. The skin over the area was prepped with Betadine X 3 and draped in usual sterile manner. Sterile technique was observed throughout procedure. Under biplanar fluoroscopic guidance, the target injection area of the L4, L5, Sacral Ala were targeted. A 25 gauge 31/2 inch spinal needle was then placed at the most medial and superior aspect of the transverse process near the "eye of the Sandeep dog". Aspiration for blood was negative. 1 cc of 0.5% Ropivacaine was injected into the targeted areas separately. Crane were withdrawn intact. No complications were noted during the procedure. The patient tolerated the procedure well. The patient was placed in supine position and transferred to the recovery area for observation and remained stable until discharged home. Home discharge instructions were given to the patient by the staff. The patient will schedule a follow up as directed.
[2019-10-01 10:43] VITALS: BP 117/76; PULSE 87
--- NOTE | 2019-10-01 11:04 | FL ---
EXAMINATION TYPE: FL guided pain mgmt statistic DATE OF EXAM: 10/01/2019 FLUOROSCOPY Fluoroscopy time of 6 seconds was used during lumbar facet block. 6 image/s document/s the procedure .
== END ==
LOC: ORPAIN 08:38
PROVIDERS: ATTEND Hospitalist
DX: M47.816 Spondylosis without myelopathy or radiculopathy, lumbar region (principal); Z78.0 Asymptomatic menopausal state

== ENCOUNTER → 2019-10-08 | Outpatient (CLI) | payer OTHER ==
[2019-10-08 14:03] VITALS: BP 122/81; PULSE 95; RESP 18
--- NOTE | 2019-10-09 06:32 | P.PAINPG ---
Subjective Progress Note Date: 10/08/19 This is a follow-up visit for this 14-year-old years old female, with a chronic history of severe low back pain she stayed closed with lumbar radiculopathy lumbar spinal stenosis, and lumbar spondylosis with lumbar facet arthropathy, previously we have done transforaminal epidural steroid injection at the L3 4 levels 2, she had short-term benefit from, and later on we did agnostic medial branch block lumbar area, patient reported that her pain was the same before the block and after the block, she had 0 benefits from it , patient was evaluated by spine surgeon Dr. Allen and he recommended lumbar decompression and fusion, patient doesn't want to have surgery , the pain is constant with radiation to the lower extremities bilaterally, she is able to ambulate, she continued to use Cymbalta and Flexeril, she denies any side effect of the medication Objective - Vital Signs Vital signs: Vital Signs Temp Pulse 95 10/08/19 13:57 Resp 18 10/08/19 13:57 BP 122/81 10/08/19 13:57 Pulse Ox 99 10/08/19 13:57 - Exam Physical Examinations : -Constitutiona : Cooperative , not in acute distress . -HEENT : nech : supple , no Lymphadenopathy , normal thyroid size . : eyes : no ptosis , no icterus, no photophobia . - neurologic : Cranial nerve II to XII intact , no focal neurological deffecit . -psychatric : alert , oriented X 3 , appropriate affect , intact judgment and insight . -Lymphatic : no Lymphadenopathy . - musculoskeltal : Lumber spine moter stegnth lower extremities ,thigh and legs 4- 5/5 Right side , 4-5/5 Left side deep tendon reflexes : normal Knee Jerk , normal ankle Jerk lumber facet Loading Test =positive Right , positive Left Range of motion of the lumbar spine Flexion 30 degrees, extension 10 degrees strait leg raising test = positive at 30 degree Fabere test= positive Right , and positive LT . tenderness over the Sacroiliac joint on the Right , and Left sides MRI of the lumbar spine= L2-3 and L3 4 and L4 5 and L5-S1 foraminal stenosis, and lumbar degenerative disc disease Assessment and Plan Plan: Assessment and plan=1-lumbar radiculopathy. 2-lumbar spinal stenosis. 3-lumbar spondylosis with lumbar facet arthropathy. Patient had no benefit from diagnostic medial branch block lumbar area, patient had no benefit from transforaminal epidural steroid injection at L3 4 x2 Patient refused to have any surgery (he was evaluated by Dr. Allen he recommended surgery, a discussed this option with the patient and she continued to refuse surgery ) In the view that patient had multilevel foraminal stenosis, multilevel lumbar degenerative disc disease, patient could benefit from interlaminar epidural steroid injection at the L4 5 level Time with Patient: Less than 30 PQRS Measure Charge Sheet Measure #130: Documentation of Current Meds in Medical Chart: Patient's medications documented in chart Measure #226: Tobacco Use: Screen & Cessation Intervention: Pt screened for tobacco use AND intervention given Measure #111: Pneumonia Vaccination: Pneumococcal vaccine NOT administered or previously given Measure #47: Advance Care Plan: Advance care planning discussed & documented, pt chose/unable to give Measure #412: Opioid Treatment Agreement: No documentation of signed opioid treatment agreement Measure #408: Opioid Therapy Follow-up Evaluation: Patient had NO f/u eval minimum every 3 months during opioid therapy Measure #317: Preventitive Care & Scrn High Bld Press & F/U: Normal blood pressure, f/u not required Measure #128: Body Mass Index (BMI) Screening & Follow-up: BMI documented ABOVE normal parameters - f/u documented Measure #131: Pain Assessment & Follow-up: Pain positive & plan documented, Follow-up scheduled Measure #431: Unhealthy Alcohol Use Preventative Care & Scrn: Patient not identified as an unhealthy alcohol user PQRS Narrative: Smoking Status Current every day smoker Blood Pressure 122/81 Pain Intensity [Lower Back] 4 Scale Used Numeric (1 - 10) Hx Alcohol Use (MH) Yes Home Medications: Ambulatory Orders DULoxetine HCL [Cymbalta] 60 mg PO QAM 02/01/16 Albuterol Inhaler [Ventolin Hfa Inhaler] 90 mcg INHALATION Q6H PRN 07/17/18 Atorvastatin [Lipitor] 20 mg PO HS 07/17/18 Cetirizine HCl [Zyrtec] 10 mg PO DAILY 07/17/18 Cyclobenzaprine [Flexeril] 5 mg PO BID 07/17/18 Diclofenac Sodium [Voltaren] 75 mg PO BID 07/17/18 Montelukast [Singulair] 10 mg PO HS 12/05/18 Fluticasone Nasal [place] [Flonase Nasal [place]] 2 spr EA NOSTRIL BID 06/27/19 Lisinopril [Zestril] 5 mg PO QAM 06/27/19 Omeprazole [PriLOSEC] 20 mg PO AC-BID 06/27/19 Umeclidinium [place] [Incruse Ellipta] 1 puff INHALATION QAM 07/07/19 Multivit-Min/Iron/Folic/Lutein [Centrum Silver Women Tablet] 1 each PO DAILY 10/03/19 Baclofen 10 mg PO BID 10/08/19 Controlled Substance Measures - Controlled Substance Measures Is patient prescribed a controlled substance at discharge?: No
== END | disposition home or self-care (01) ==
LOC: PNWHC3 13:19
PROVIDERS: ATTEND Specialist
DX: G89.29 Other chronic pain (principal); M48.061 Spinal stenosis, lumbar region without neurogenic claudication; M47.26 Other spondylosis with radiculopathy, lumbar region; M46.96 Unspecified inflammatory spondylopathy, lumbar region; F17.200 Nicotine dependence, unspecified, uncomplicated; Z79.899 Other long term (current) drug therapy
CPT/HCPCS: 99211

== ENCOUNTER 2019-10-22 08:50 | Day surgery (SDC) | payer OTHER ==
[2019-10-21 11:22] VITALS: BMI 32.8
[~2019-10-22 08:50] MED LIST changes: -IV FLUID CONTINUATION 1,000 ML IV ONE; -LACTATED RINGERS 1,000 ML IV ONE; +LACTATED RINGERS 1,000 ML IV SCH; -MIDAZOLAM 2 MG/2 ML VIAL ONE; -ROPIVACAINE 5MG/ML 20ML VIAL ONE
[2019-10-22 09:15] VITALS: TEMP 97.2
[2019-10-22] MEDS ORDERED: LIDOCAINE 1% (10MG/ML) FOR IV START INTRADERMA ONE (09:15)
[2019-10-22] MEDS ORDERED: IOPAMIDOL M200 10 ML VIAL ONE (10:09)
[2019-10-22] MEDS ORDERED: MIDAZOLAM 2 MG/2 ML VIAL ONE (10:09)
[2019-10-22] MEDS ORDERED: fentaNYL (PF) 50 MCG/ML 2 ML AMP ONE (10:09)
[2019-10-22] MEDS ORDERED: methylPREDNISolone ACETATE 40 MG/ML 1 ML VIAL ONE (10:09)
--- NOTE | 2019-10-22 10:19 | P.PCN ---
Date of Procedure: 10/22/19 Procedure(s) Performed: PREOPERATIVE DIAGNOSIS: 1- Lumbar radiculopathy. 2-Lumbar spondylosis with Facet arthropathy without myelopathy. 3-lumbar spinal stenosis. POSTOPERATIVE DIAGNOSIS: Same as preop diagnosis. PROCEDURE 1. Lumbar epidural steroid injection under fluoroscopic guidance at the L4-5 level. (Fluoroscopy imaging was available in radiology department) 2. Lumbar epidurogram. ANESTHESIA: Local with 1% lidocaine 3 ml and , moderate sedation with intraven ous Versed 2 mg ,and fentanyle 50 Mcg EBL: Minimal PROCEDURE INDICATION: The patient with low back pain and radiculitis symptoms unresponsive to conservative treatment. Fluoroscopy was used to optimize visualization of the needle placement and to maximize safety. PROCEDURE DESCRIPTION / TECHNIQUE: The patient was seen and identified in the preoperative area. Risks, benefits, complications including but not limited to infections ,bleeding ,allergic reaction to the medications ,nerve damage and not complete pain releife , and alternatives were discussed with the patient. The patient agreed to proceed with the procedure and signed the consent. IV was started, and vital signs were stable. Patient was taken to the OR and time out was completed. The patient was placed in the prone position on procedure table and a pillow was placed under the abdomen to reduce lumbar lordosis. The lumbosacral area was prepped and draped in the usual sterile fashion.ere closely monitored during the procedure. Conscious sedation was used during the procedure to decrease patients anxiety. Vital signs was monitered during the entire procedure. Using anterior-posterior fluoroscopy, the L4-5 interlaminar space was identified and the skin over this site was marked and then infiltrated with 1% lidocaine subcutaneously. Subsequently, a 20-gauge Tuohy epidural needle was inserted and advanced toward the epidural space using the ``Loss of resistance technique and guided by AP and lateral fluoroscopy. The correct needle position in the epidural space was verified with the injection of 2 mL of the water soluble contrast dye Isovue 200 contrast and observing an excellent epidurogram with the epidural spread of the dye, after negative aspiration for blood and CSF and in the absence of paresthesias. Again after negative aspiration, a 6 ml mixture containing 80 mg of Depo-medrol , and 2 ml of preservative free Normal Saline, and 2 ml of preservative free lidocaine 1% solution was injected and a washout of epidurogram was seen. Needle was withdrawn intact, skin was cleansed, and bandages were applied. COMPLICATIONS: None DISPOSITION / PLANS: The patient was placed in a supine position and transferred to the recovery area in a stable condition for observation. There was no evidence of lower extremity motor or sensory deficit after the procedure. Patient was discharged from the recovery room after meeting discharge criteria. Home discharge instructions were given to the patient by the staff. The patient was reexamined prior to discharge. The patient will schedule a follow up in the clinic in 2-4 weeks.
[2019-10-22 10:22] VITALS: RESP 16
--- NOTE | 2019-10-22 10:31 | FL ---
EXAMINATION TYPE: FL guided pain mgmt statistic DATE OF EXAM: 10/22/2019 HISTORY: Fluoroscopy time 2 seconds of fluoroscopy provided. IMPRESSION: 1. Fluoroscopy time.
[2019-10-22 10:36] VITALS: BP 117/76; PULSE 88
[2019-10-22] MEDS ORDERED: IV FLUID CONTINUATION 1,000 ML IV ONE (10:36)
== END 2019-10-22 10:50 | disposition home or self-care (01) ==
LOC: ORPAIN 08:50
PROVIDERS: ATTEND Specialist
DX: G89.29 Other chronic pain (principal); M47.26 Other spondylosis with radiculopathy, lumbar region; M48.061 Spinal stenosis, lumbar region without neurogenic claudication; F17.200 Nicotine dependence, unspecified, uncomplicated; Z78.0 Asymptomatic menopausal state; Z79.899 Other long term (current) drug therapy
CPT/HCPCS: 62323; J2250; J1030; J3010; Q9966

== ENCOUNTER → 2020-01-02 | Outpatient (CLI) | payer OTHER ==
--- NOTE | 2020-01-02 10:04 | XR ---
EXAMINATION TYPE: XR chest 2V DATE OF EXAM: 01/02/2020 COMPARISON: 11/05/2018 INDICATION: COPD, asthma TECHNIQUE: Frontal and lateral views of the chest are obtained. FINDINGS: The heart size is normal. The pulmonary vasculature is normal. The lungs are clear. IMPRESSION: 1. No acute pulmonary process.
[2020-01-02 10:40] LABS: Basophils # (A) 0.1 k/uL (0-0.2); Basophils % (A) 1 %; Eosinophils # (A) 0.3 k/uL (0-0.7); Eosinophils % (A) 5 %; HCT 41.7 % (34.0-46.0); HGB 13.5 gm/dL (11.4-16.0); Lymphocytes # (A) 2.2 k/uL (1.0-4.8); Lymphocytes % (A) 33 %; MCH 30.8 pg (25.0-35.0); MCHC 32.4 g/dL (31.0-37.0); MCV 95.2 fL (80.0-100.0); Mean Platelet Volume 7.7; Monocytes # (A) 0.3 k/uL (0-1.0); Monocytes % (A) 5 %; Neutrophils # (A) 3.6 k/uL (1.3-7.7); Neutrophils % (A) 54 %; Platelet Count 321 k/uL (150-450); RBC 4.38 m/uL (3.80-5.40); RDW 13.4 % (11.5-15.5); WBC 6.6 k/uL (3.8-10.6)
[2020-01-02 13:25] LABS: Erythrocyte Sedimentation Rate 10 mm/hr (0-20)
[2020-01-02 15:56] LABS: African American GFR (CKD) 117.9 (60.0-200.0); Albumin 4.6 g/dL (3.80-4.90); Albumin/Globulin Ratio 2.42 (1.60-3.17); Anion Gap 10.3 mmol/L (4.00-12.00); BUN/Creat Ratio 25.71 Ratio (12.00-20.00); Calcium 9.3 mg/dL (8.7-10.3); Carbon Dioxide 23.7 mmol/L (21.6-31.8); Chol/HDL Ratio 2.12; Globulin 1.9 g/dL (1.6-3.3); LDL Cholesterol,Calculated 98.2 mg/dL (0.0-131.0); Non-African American GFR(CKD) 101.7 (60.0-200.0); Potassium 4.6 mmol/L (3.5-5.5); Total Bilirubin 0.7 mg/dL (0.2-1.2); Total Protein 6.5 g/dL (6.2-8.2); VLDL Calculation 13.8 mg/dL (5.00-40.00)
== END | disposition home or self-care (01) ==
LOC: LABWHC1 08:50
PROVIDERS: ATTEND Internal Medicine
DX: Z00.00 Encounter for general adult medical examination without abnormal findings (principal); F17.209 Nicotine dependence, unspecified, with unspecified nicotine-induced disorders
CPT/HCPCS: 36415; 71046; 80053; 80061; 82306; 82550; 85025; 85652; 86038

== ENCOUNTER → 2020-01-28 | Outpatient (CLI) | payer OTHER ==
[2020-01-28 08:24] VITALS: BP 121/82; PULSE 110; RESP 16
--- NOTE | 2020-01-28 08:43 | P.PAINPG ---
Subjective Progress Note Date: 01/28/20 This is a follow-up visit for this 49-year-old years old female, with a chronic history of severe low back pain she has been diagnosed with lumbar radiculopathy lumbar spinal stenosis, and lumbar spondylosis with lumbar facet arthropathy, recently we have done lumbar epidural steroid injection at L4-5 on 10/22/2019. Patient returns today for follow-up. She reports excellent relief, pain decreasing from 6/10 to 1/10 lasting 2 weeks. Unfortunately, due to current pandemic we were unable to schedule a repeat procedure. Today, her pain is rated as 5/10, located in the low back, radiating to posterior eye, worse on the right side and occasionally into right calf. Pain is described as electrical, s tabbing, stinging. Pain is better with procedures, medications, ice and worse with activity, sneezing, using the restroom. She continues to exercise. She has recently started seeing a chiropractor, with some benefit. Previously we have done transforaminal epidural steroid injection at the L3 4 levels 2, she had short-term benefit from, and later on we did agnostic medial branch block lumbar area, she had no benefit, patient was evaluated by spine surgeon Dr. Allen and he recommended lumbar decompression and fusion, patient doesn't want to have surgery. The pain is constant with radiation to the lower extremities bilaterally, she is able to ambulate, she continued to use Voltaren and Flexeril, she denies any side effect of the medication Review of systems is negative for chest pain, shortness of breath, new onset weakness, numbness/tingling, abdominal pain, malaise, fever, night sweats, chills, homicidal or suicidal ideation, or bowel or bladder incontinence. Objective Physical exam: Vitals: Reviewed in EMR GENERAL: Well appearing, in no acute distress PSYCH: Mood and affect is appropriate. Awake, alert, and oriented SKIN: Skin color, texture, turgor normal, no rashes or lesions HEENT: Normocephalic, atraumatic. EOM intact CV: No pedal edema RESP: Respirations are unlabored, no audible wheezing GI: Abdomen non-distended MUSCULOSKELETAL: Bilateral lower extremity strength is normal and symmetric. No atrophy or tone abnormalities are noted. Lumbar spine: Straight leg raising in the sitting position is negative for radicular pain. Tenderness to palpation over the lumbar spine and paraspinous muscles bilaterally. Positive for pain with facet loading and back extension/rotation. Buttocks: Tenderness to palpation over the PSIS, sacroiliac joint maneuvers are negative for pain. Extremities: Peripheral joint ROM is full and pain free without obvious instability or laxity in all four extremities. No edema or skin discolorations noted. Gait: Gait is normal NEUR: Bilateral lower extremity coordination and muscle stretch reflexes are physiologic and symmetric. Negative clonus bilaterally. Reduced sensation to light touch noted in right lateral thigh Imaging: MRI of the lumbar spine= L2-3 and L3 4 and L4 5 and L5-S1 foraminal stenosis, and lumbar degenerative disc disease Assessment and Plan Plan: Assessment and plan=1-lumbar radiculopathy. 2-lumbar spinal stenosis. 3-lumbar spondylosis with lumbar facet arthropathy. 4- SI joint dysfunction Patient had no benefit from diagnostic medial branch block lumbar area, patient had short-term benefit from transforaminal epidural steroid injection at L3 4 x2 Patient refused to have any surgery (he was evaluated by Dr. Allen he recommended surgery, a discussed this option with the patient and she continued to refuse surgery ) Patient had excellent benefit from lumbar epidural steroid injection done in October, with excellent relief for 2 weeks. She will likely benefit from repeat lumbar epidural steroid injection at L4-5, right paramedian approach. If no long-lasting benefit from this, patient would likely benefit from SI joint injections Patient was counseled for 3 minutes on the importance of smoking cessation and weight loss as it pertains to overall health and chronic pain. I will take over Flexeril prescription from Dr. Lopez for 10 mg 3 times a day sent to [id number] tablets with 2 refills. PQRS Measure Charge Sheet Measure #130: Documentation of Current Meds in Medical Chart: Patient's m edications documented in chart Measure #226: Tobacco Use: Screen & Cessation Intervention: Pt screened for tobacco use AND intervention given Measure #111: Pneumonia Vaccination: Pneumococcal vaccine NOT administered or previously given Measure #47: Advance Care Plan: Advance care planning discussed & documented, pt chose/unable to give Measure #412: Opioid Treatment Agreement: No documentation of signed opioid treatment agreement Measure #408: Opioid Therapy Follow-up Evaluation: Patient had NO f/u eval minimum every 3 months during opioid therapy Measure #317: Preventitive Care & Scrn High Bld Press & F/U: Normal blood pressure, f/u not required Measure #128: Body Mass Index (BMI) Screening & Follow-up: BMI documented ABOVE normal parameters - f/u documented Measure #131: Pain Assessment & Follow-up: Pain positive & plan documented, Follow-up scheduled Measure #431: Unhealthy Alcohol Use Preventative Care & Scrn: Patient not identified as an unhealthy alcohol user PQRS Narrative: Smoking Status Current every day smoker Scale Used Numeric (1 - 10) Hx Alcohol Use (MH) Yes Home Medications: Ambulatory Orders DULoxetine HCL [Cymbalta] 60 mg PO BID 02/01/16 Albuterol Inhaler (Mhu) [Ventolin Hfa Inhaler (Mhu)] 90 mcg INHALATION Q6H PRN 07/17/18 Atorvastatin [Lipitor] 20 mg PO HS 07/17/18 Cetirizine HCl [Zyrtec] 10 mg PO DAILY 07/17/18 Diclofenac Sodium [Voltaren] 75 mg PO BID 07/17/18 Montelukast [Singulair] 10 mg PO HS 07/17/18 Fluticasone Nasal [place] [Flonase Nasal [place]] 2 spr EA NOSTRIL BID 06/27/19 Lisinopril [Zestril] 5 mg PO QAM 06/27/19 Omeprazole [PriLOSEC] 20 mg PO BID 06/27/19 Umeclidinium [place] [Incruse Ellipta] 1 puff INHALATION QAM 07/07/19 Fluticasone/Salmeterol [Fluticasone-Salmeterol 113-14] 1 puff INHALATION BID 06/01 Cholecalciferol [Vitamin D3 (25 Mcg = 1000 Iu)] 1,000 unit PO DAILY 01/21/20 Multivit-Min/FA/Lycopen/Lutein [Centrum Silver Tablet] 1 each PO DAILY 01/21/20 Cyclobenzaprine [Flexeril] 10 mg PO TID 30 Days #90 tab 01/28/20 Controlled Substance Measures - Controlled Substance Measures Is patient prescribed a controlled substance at discharge?: No
== END | disposition home or self-care (01) ==
LOC: PNWHC3 08:02
PROVIDERS: ATTEND Anesthesiology
DX: G89.29 Other chronic pain (principal); M48.061 Spinal stenosis, lumbar region without neurogenic claudication; M47.26 Other spondylosis with radiculopathy, lumbar region; M46.96 Unspecified inflammatory spondylopathy, lumbar region; M53.3 Sacrococcygeal disorders, not elsewhere classified; F17.200 Nicotine dependence, unspecified, uncomplicated; Z79.899 Other long term (current) drug therapy
CPT/HCPCS: 99211

== ENCOUNTER → 2020-02-10 | Day surgery (SDC) | payer OTHER ==
[2020-02-09 10:19] VITALS: BMI 35.0
[~2020-02-10] MED LIST changes: +IOPAMIDOL M200 10 ML VIAL ONE; +IV FLUID CONTINUATION 850 ML IV ONE; +KETOROLAC 30 MG/ML 1 ML VIAL IVP ONE; +KETOROLAC 30 MG/ML 1 ML VIAL ONE; +LACTATED RINGERS 1,000 ML IV ONE; +LIDOCAINE 1% (10MG/ML) FOR IV START INTRADERMA ONE; +MIDAZOLAM 2 MG/2 ML VIAL ONE; +fentaNYL (PF) 50 MCG/ML 2 ML AMP ONE; +methylPREDNISolone ACETATE 40 MG/ML 1 ML VIAL ONE
[2020-02-10 10:06] VITALS: RESP 16; TEMP 97.1
[2020-02-10 10:56] VITALS: BP 128/70; PULSE 93
--- NOTE | 2020-02-10 11:58 | P.PCN ---
Date of Procedure: 02/10/20 Procedure(s) Performed: PREOPERATIVE DIAGNOSIS: 1- Lumbar radiculopathy, Lumbar Degenerative Disc Diseases 2-Lumbar spondylosis with Facet arthropathy without myelopathy POSTOPERATIVE DIAGNOSIS: 1-Lumber Degenerative Disc Diseases 2-Lumbar spondylosis with Facet arthropathy without myelopathy PROCEDURE 1. Lumbar epidural steroid injection under fluoroscopic guidance at the L4-5 level using a right paramedian approach 2. Lumbar epidurogram. ANESTHESIA: Local with 1% lidocaine 3 ml, moderate sedation with intravenous Versed and fentanyl, sedation time 10 minutes Fluoroscopy was used for the procedure and images were saved in the radiology portion of the chart. EBL: Minimal PROCEDURE INDICATION: The patient with low back pain and radiculitis symptoms unresponsive to conservative treatment. Fluoroscopy was used to optimize visualization of the needle placement and to maximize safety. PROCEDURE DESCRIPTION / TECHNIQUE: The patient was seen and identified in the preoperative area. Risks, benefits, complications including but not limited to infections ,bleeding ,allergic reaction to the medications ,nerve damage and incomplete pain releif , and alternatives were discussed with the patient. The patient agreed to proceed with the procedure and signed the consent. IV was started, and vital signs were stable. Patient was taken to the OR and time out was completed. The patient was placed in the prone position on procedure table and a pillow was placed under the abdomen to reduce lumbar lordosis. The lumbosacral area was prepped and draped in the usual sterile fashion. Vitals were closely monitored during the procedure. Conscious sedation was used during the procedure to decrease patients anxiety. Using anterior-posterior fluoroscopy, the L4-5 interlaminar space was identified and the skin over this site was marked and then infiltrated with 1% lidocaine subcutaneously. Subsequently, a 20-gauge 3.5" Tuohy epidural needle was inserted and advanced toward the epidural space using the loss of resistance technique and guided by AP and lateral/ oblique fluoroscopy. The correct needle position in the epidural space was verified with the injection of 2 mL of the water soluble contrast dye Isovue 200 contrast under live fluoroscopy, observing an excellent epidurogram. Then, after negative aspiration for blood and CSF and in the absence of paresthesias, a 5 ml mixture containing 80 mg of Depo-medrol , 3 ml of preservative free Normal Saline, and 1 ml of preservative free lidocaine 1% solution was injected and a washout epidurogram was seen. Needle was withdrawn intact, skin was cleansed, and bandages were applied. COMPLICATIONS: None DISPOSITION / PLANS: The patient was placed in a supine position and transferred to the recovery area in a stable condition for observation. There was no evidence of lower extremity motor or sensory deficit after the procedure. Patient was discharged from the recovery room after meeting discharge criteria. Home discharge instructions were given to the patient by the staff. The patient will schedule a follow up in the clinic in 2-4 weeks.
--- NOTE | 2020-02-10 12:28 | FL ---
Fluoroscopy HISTORY: Pain 5 seconds fluoroscopy time supplied to the referring clinician. 3 intraoperative C-arm images docume nt the procedure. See dictated report from anesthesia.
== END ==
LOC: ORPAIN 09:50
PROVIDERS: ATTEND Anesthesiology
DX: M47.26 Other spondylosis with radiculopathy, lumbar region (principal); M51.16 Intervertebral disc disorders with radiculopathy, lumbar region; Z78.0 Asymptomatic menopausal state
CPT/HCPCS: 62323; J2250; J1030; J3010; J1885; Q9966; 99152

== ENCOUNTER → 2020-02-25 | Outpatient (CLI) | payer OTHER ==
--- NOTE | 2020-02-26 09:15 | MM ---
Reason for exam: screening (asymptomatic). Last mammogram was performed 2 years ago. History: Patient is postmenopausal and is nulliparous. Family history of breast cancer in mother. Benign US biopsy breast VAD RT of the right breast, July 20, 2015. Took hormonal contraceptives for 23 years beginning at age 20. Physical Findings: A clinical breast exam by your physician is recommended on an annual basis and results should be correlated with mammographic findings. MG Screening Mammo w CAD Bilateral CC and MLO view(s) were taken. Prior study comparison: February 25, 2018, bilateral MG screening mammo w CAD. February 19, 2017, bilateral MG screening mammo w CAD. There are scattered fibroglandular densities. No significant changes when compared with prior studies. ASSESSMENT: Benign, BI-RAD 2 RECOMMENDATION: Routine screening mammogram of both breasts in 1 year.
== END | disposition home or self-care (01) ==
LOC: RADMAMWWP 09:29
PROVIDERS: ATTEND Internal Medicine
DX: Z12.31 Encounter for screening mammogram for malignant neoplasm of breast (principal)
CPT/HCPCS: 77067

== ENCOUNTER → 2020-03-03 | Outpatient (CLI) | payer OTHER ==
[2020-03-03 08:55] VITALS: BP 118/81; PULSE 99; RESP 16
--- NOTE | 2020-03-03 09:04 | P.PAINPG ---
Subjective Progress Note Date: 03/03/20 This is a follow-up visit for this 49-year-old years old female, with a chronic history of severe low back pain she has been diagnosed with lumbar radiculopathy lumbar spinal stenosis, and lumbar spondylosis with lumbar facet arthropathy, recently we have done lumbar epidural steroid injection at L4-5 on 02/10/2020. Patient returns today for follow-up. She reports excellent benefit from this procedure, pain is down from 8/10-4/10. She also reports no pain while turning over in bed, this was bothering her prior to the procedure. Today, pain is located in the low back radiating to bilateral hips, she does endorse numbness and tingling in bilateral lateral thighs, this is unchanged. Pain is described as electric, spasm. Pain is worse with standing, bending and better with medications, injections. She continues to do low back exercises. She has recently started seeing a chiropractor, with some benefit. Previously we have done transforaminal epidural steroid injection at the L3 4 levels 2, she had short-term benefit from, and later on we did agnostic medial branch block lumbar area, she had no benefit, patient was evaluated by spine surgeon Dr. Allen and he recommended lumbar decompression and fusion, patient doesn't want to have surgery. She continues to use Voltaren and Flexeril, she denies any side effect of the medication Review of systems is negative for chest pain, shortness of breath, new onset weakness, numbness/tingling, abdominal pain, malaise, fever, night sweats, chills, homicidal or suicidal ideation, or bowel or bladder incontinence. Objective Physical exam: Vitals: Reviewed in EMR GENERAL: Well appearing, in no acute distress PSYCH: Mood and affect is appropriate. Awake, alert, and oriented SKIN: Skin color, texture, turgor normal, no rashes or lesions HEENT: Normocephalic, atraumatic. EOM intact CV: No pedal edema RESP: Respirations are unlabored, no audible wheezing GI: Abdomen non-distended MUSCULOSKELETAL: Bilateral lower extremity strength is normal and symmetric. No atrophy or tone abnormalities are noted. Lumbar spine: Straight leg raising in the sitting position is negative for radicular pain. No Tenderness to palpation over the lumbar spine and paraspinous muscles bilaterally. Mildly Positive for pain with facet loading and back extension/rotation. Buttocks: No Tenderness to palpation over the PSIS, sacroiliac joint maneuvers are negative for pain. Extremities: Peripheral joint ROM is full and pain free without obvious instability or laxity in all four extremities. No edema or skin discolorations noted. Gait: Gait is normal NEUR: Bilateral lower extremity coordination and muscle stretch reflexes are physiologic and symmetric. Negative clonus bilaterally. Reduced sensation to light touch noted in bilateral lateral thigh Imaging: MRI of the lumbar spine= L2-3 and L3 4 and L4 5 and L5-S1 foraminal stenosis, and lumbar degenerative disc disease Assessment and Plan Plan: Assessment and plan=1-lumbar radiculopathy. 2-lumbar spinal stenosis. 3-lumbar spondylosis with lumbar facet arthropathy. 4- SI joint dysfunction Patient had no benefit from diagnostic medial branch block lumbar area, patient had short-term benefit from transforaminal epidural steroid injection at L3 4 x2 Patient refused to have any surgery (he was evaluated by Dr. Allen he recommended surgery, a discussed this option with the patient and she continued to refuse surgery ) Patient had excellent benefit from lumbar epidural steroid injection at L4-5, right paramedian approach. Follow-up: When necessary PQRS Measure Charge Sheet Measure #130: Documentation of Current Meds in Medical Chart: Patient's medications documented in chart Measure #226: Tobacco Use: Screen & Cessation Intervention: Pt screened for tobacco use AND intervention given Measure #111: Pneumonia Vaccination: Pneumococcal vaccine NOT administered or previously given Measure #47: Advance Care Plan: Advance care planning discussed & documented, pt chose/unable to give Measure #412: Opioid Treatment Agreement: No documentation of signed opioid treatment agreement Measure #408: Opioid Therapy Follow-up Evaluation: Patient had NO f/u eval minimum every 3 months during opioid therapy Measure #317: Preventitive Care & Scrn High Bld Press & F/U: Normal blood pressure, f/u not required Measure #128: Body Mass Index (BMI) Screening & Follow-up: BMI documented ABOVE normal parameters - f/u documented Measure #131: Pain Assessment & Follow-up: Pain positive & plan documented, Follow-up when necessary Measure #431: Unhealthy Alcohol Use Preventative Care & Scrn: Patient not identified as an unhealthy alcohol user PQRS Measure Charge Sheet PQRS Narrative: Smoking Status Current every day smoker Pain Intensity [Lower Back] 5 Scale Used Numeric (1 - 10) Hx Alcohol Use (MH) Yes Home Medications: Ambulatory Orders DULoxetine HCL [Cymbalta] 60 mg PO DAILY 02/01/16 Albuterol Inhaler (Mhu) [Ventolin Hfa Inhaler (Mhu)] 90 mcg INHALATION Q6H PRN 07/17/18 Atorvastatin [Lipitor] 20 mg PO HS 07/17/18 Cetirizine HCl [Zyrtec] 10 mg PO DAILY 07/17/18 Diclofenac Sodium [Voltaren] 75 mg PO BID 07/17/18 Montelukast [Singulair] 10 mg PO HS 07/17/18 Fluticasone Nasal [place] [Flonase Nasal [place]] 2 spr EA NOSTRIL BID 06/27/19 Omeprazole [PriLOSEC] 20 mg PO BID 06/27/19 lisinopriL [Zestril] 5 mg PO QAM 06/27/19 Umeclidinium [place] [Incruse Ellipta] 1 puff INHALATION DAILY 07/07/19 Fluticasone/Salmeterol [Fluticasone-Salmeterol 113-14] 1 puff INHALATION BID 10/21/19 Cholecalciferol [Vitamin D3 (25 Mcg = 1000 Iu)] 1,000 unit PO DAILY 01/21/20 Multivit-Min/FA/Lycopen/Lutein [Centrum Silver Tablet] 1 each PO DAILY 01/21/20 Cyclobenzaprine [Flexeril] 10 mg PO TID 30 Days #90 tab 01/28/20 Controlled Substance Measures - Controlled Substance Measures Is patient prescribed a controlled substance at discharge?: No
== END | disposition home or self-care (01) ==
LOC: PNWHC3 08:39
PROVIDERS: ATTEND Anesthesiology
DX: G89.29 Other chronic pain (principal); M48.061 Spinal stenosis, lumbar region without neurogenic claudication; M47.26 Other spondylosis with radiculopathy, lumbar region; M53.3 Sacrococcygeal disorders, not elsewhere classified; F17.200 Nicotine dependence, unspecified, uncomplicated; Z79.899 Other long term (current) drug therapy
CPT/HCPCS: 99211

== ENCOUNTER → 2020-06-21 | Outpatient (CLI) | payer OTHER ==
[2020-06-21 09:09] VITALS: BP 117/79; PULSE 89; RESP 16; TEMP 98.5
--- NOTE | 2020-06-21 09:17 | P.PN ---
Subjective Progress Note Date: 06/21/20 This is a follow-up visit for this 50-year-old years old female, with a chronic history of severe low back pain she has been diagnosed with lumbar radiculopathy lumbar spinal stenosis, and lumbar , she does endorse numbness and tingling in bilateral lateral thighs, previously well done lumbar epidural steroid injection she get excellent pain relief but only for short term, she continued to have severe low back pain which is increased with any activity, he continued to use pain medication with only minimal benefit Review of systems is negative for chest pain, shortness of breath, new onset weakness, numbness/tingling, abdominal pain, malaise, fever, night sweats, chills, homicidal or suicidal ideation, or bowel or bladder incontince Objective - Vital Signs Vital signs: Vital Signs Temp 98.5 F 06/21/20 09:06 Pulse 89 06/21/20 09:06 Resp 16 06/21/20 09:06 BP 117/79 06/21/20 09:06 Pulse Ox 100 06/21/20 09:06 - Exam -Constitutiona : Cooperative , not in acute distress . -HEENT : nech : supple , no Lymphadenopathy , normal thyroid size . : eyes : no ptosis , no icterus, no cristi tophobia . - neurologic : Cranial nerve II to XII intact , no focal neurological deffecit . -psychatric : alert , oriented X 3 , appropriate affect , intact judgment and insight . -Lymphatic : no Lymphadenopathy . - musculoskeltal : Lumber spine moter stegnth lower extremities ,thigh and legs 4- 5/5 Right side , 4-5/5 Left side deep tendon reflexes : normal Knee Jerk , normal ankle Jerk lumber facet Loading Test =positive Right , positive Left Range of motion of the lumbar spine Flexion 30 degrees, extension 10 degrees strait leg raising test = positive at 30 degree Fabere test= positive Right , and positive LT . tenderness over the Sacroiliac joint on the Right , and Left sides MRI of the lumbar spine= L2-3 and L3 4 and L4 5 and L5-S1 foraminal stenosis, and lumbar degenerative disc disease Assessment and Plan Plan: Assessment and plan=1-lumbar radiculopathy. 2-lumbar spinal stenosis. 3-lumbar spondylosis with lumbar facet arthropathy. We'll schedule patient for diagnostic medial branch block L3, L4, L5 to target the facet joint at L4 5 and L5-S1 Patient refused to have any surgery (he was evaluated by Dr. Allen he recommended surgery, a discussed this option with the patient and she continued to refuse surgery ) - PQRS measures = - Patient's medications are documented in the chart. -Tobacco use is positive, and counseling.Given. -Patient's has not received pneumococcal vaccine. -Advanced care planning discussed, patient not eligible. -Opiate contract not signed. -Pain positive and follow-up visit/procedure is scheduled. -Patient's blood pressure measured [ 117/72 ] , and documented in the record ,and patient will follow up with the primary care. -Patient's weight was measured and body mass index [ ] above the normal limits and counseling was done. and patient instructed to follow-up with the primary care physician. -Patient was not identified as an unhealthy alcohol user Time with Patient: Less than 30
== END | disposition home or self-care (01) ==
LOC: PNWHC3 08:26
PROVIDERS: ATTEND Specialist
DX: M48.061 Spinal stenosis, lumbar region without neurogenic claudication (principal); M47.26 Other spondylosis with radiculopathy, lumbar region
CPT/HCPCS: 99211

== ENCOUNTER → 2020-07-02 | Day surgery (SDC) | payer OTHER ==
[2020-06-30 13:39] VITALS: BMI 37.2
[~2020-07-02] MED LIST changes: +IV FLUID CONTINUATION 1,000 ML IV ONE; -IV FLUID CONTINUATION 850 ML IV ONE; -KETOROLAC 30 MG/ML 1 ML VIAL IVP ONE; -KETOROLAC 30 MG/ML 1 ML VIAL ONE; -LACTATED RINGERS 1,000 ML IV SCH; +ROPIVACAINE 5MG/ML 20ML VIAL ONE
[2020-07-02 08:37] VITALS: TEMP 97.2
--- NOTE | 2020-07-02 08:58 | P.PCN ---
Date of Procedure: 07/02/20 Description of Procedure: PREOPERATIVE DIAGNOSIS : Lumbar spondylosis with Facet Arthropathy without myelopathy POSTOPERATIVE DIAGNOSIS: same PROCEDURE: first Diagnostic lumbar medial branch block with fluoroscopy at L3, L4, L5 bilaterally which covers facets L4-5 and L5-S1 ANESTHESIA: Local anesthetic; moderate IV sedation Fluoroscopy was used for the procedure and images were saved in the radiology portion of the chart. Surgeon: Issa Montiel MD PROCEDURE INDICATION: Lumbar back pain without radiculopathy, not responsive to conservative management. PROCEDURE DESCRIPTION: the patient was seen and identified in the preop holding area , risks and benefits and possible complications of the procedure and alternatives were discussed with the patient, and the patient agreed to proceed with the procedure and signed the consent . IV was started , vital signs were monitored during the procedure and fluoroscopy was used to maximize the benefit and accuracy of the needle placement, and sedation was given to decrease patient anxiety. Patient was taken to the procedure room and placed in prone position. The lumbar region was prepped using chlorhexidineX-2. Under strict sterile technique using AP fluoroscopy the bilateral sacral ala were identified and using ipsilateral oblique fluoroscopy ,the junction of the transverse process and the superior articulating process of the L4, L5 vertebra which corresponds to the fluoroscopy image of the eye of the Sandeep dog for the medial branches were identified. Subsequently, after local infiltration of skin with lidocaine 1% 0.2 mL at each level , a [22-guage 5"/ 25-gauge 3.5"] Quincke-type needle was placed at the junction of the base of the transverse process and the superior articular process at the appropriate level as well as the sacral ala, and the needle was advanced until the periosteum contacted, needle placement confirmed with AP and oblique fluoroscopy, 0.2 mL of Isovue 200 per level was injected which revealed no vascular uptake and after negative aspiration, 1 mL of bupivacaine 0.5% mixed with a total of 40 mg of depomedrol was injected at each level and the needle subsequently removed . At the end of the procedure and the needles were removed and a bandage applied after the skin was cleaned. The patient was taken to recovery room in stable condition and monitors in the recovery room for 20-30 minutes and discharged home in stable condition after discharge criteria met and patient will follow up for repeat procedure. EBL: Minimal COMPLICATION: None.
[2020-07-02 09:17] VITALS: BP 128/72; PULSE 63; RESP 17
--- NOTE | 2020-07-02 09:19 | FL ---
Fluoroscopy History: Lumbar facet block bilateral 20 sec fluoro time. 3 paper films.
== END ==
LOC: ORPAIN 08:07
PROVIDERS: ATTEND Anesthesiology
DX: M47.816 Spondylosis without myelopathy or radiculopathy, lumbar region (principal); K08.89 Other specified disorders of teeth and supporting structures; I10 Essential (primary) hypertension; E78.5 Hyperlipidemia, unspecified; J44.9 Chronic obstructive pulmonary disease, unspecified; F17.200 Nicotine dependence, unspecified, uncomplicated; E66.9 Obesity, unspecified; Z78.0 Asymptomatic menopausal state; Z68.37 Body mass index [BMI] 37.0-37.9, adult

== ENCOUNTER 2020-07-30 12:49 | Day surgery (SDC) | payer OTHER ==
[2020-07-28 11:58] VITALS: BMI 37.2
[~2020-07-30 12:49] MED LIST changes: -IOPAMIDOL M200 10 ML VIAL ONE; -IV FLUID CONTINUATION 1,000 ML IV ONE; -LACTATED RINGERS 1,000 ML IV ONE; +LACTATED RINGERS 1,000 ML IV SCH; -LIDOCAINE 1% (10MG/ML) FOR IV START INTRADERMA ONE; -MIDAZOLAM 2 MG/2 ML VIAL ONE; -ROPIVACAINE 5MG/ML 20ML VIAL ONE; -fentaNYL (PF) 50 MCG/ML 2 ML AMP ONE; -methylPREDNISolone ACETATE 40 MG/ML 1 ML VIAL ONE
[2020-07-30 13:19] VITALS: RESP 18; TEMP 97.9
[2020-07-30] MEDS ORDERED: TRIAMCINOLONE ACETONIDE 40 MG/ML 1 ML VIAL ONE (13:51)
[2020-07-30] MEDS ORDERED: ROPIVACAINE 5MG/ML 20ML VIAL ONE (13:51)
--- NOTE | 2020-07-30 14:08 | P.PCN ---
Date of Procedure: 07/30/20 Pathology: none sent Condition: stable Disposition: PACU Description of Procedure: REOPERATIVE DIAGNOSIS : Lumbar spondylosis with Facet Arthropathy without myelopathy POSTOPERATIVE DIAGNOSIS: same PROCEDURE: 2nd Diagnostic lumbar medial branch block with fluoroscopy at L3, L4, L5 bilaterally which covers facets L4-5 and L5-S1 bilaterally ANESTHESIA: Local anesthetia only with lidocaine 1% Fluoroscopy was used for the procedure and images were saved in the radiology portion of the chart. Surgeon: Bijal Mclean MD PROCEDURE INDICATION: Lumbar back pain without radiculopathy, not responsive to conservative management. PROCEDURE DESCRIPTION: the patient was seen and identified in the preop holding area , risks and benefits and possible complications of the procedure and alternatives were discussed with the patient, and the patient agreed to proceed with the procedure and signed the consent . IV was started , vital signs were monitored during the procedure and fluoroscopy was used to maximize the benefit and accuracy of the needle placement, and sedation was given to decrease patient anxiety. Patient was taken to the procedure room and placed in prone position. The lumbar region was prepped using chlorhexidineX-2. Under strict sterile technique using AP fluoroscopy the bilateral sacral ala were identified and using ipsilateral oblique fluoroscopy ,the junction of the transverse process and the superior articulating process of the L4, L5 vertebra which corresponds to the fluoroscopy image of the eye of the Sandeep dog for the medial branches were identified. Subsequently, after local infiltration of skin with lidocaine 1% 0.2 mL at each level , a [22-gauge 3.5"] Quincke-type needle was placed at the junction of the base of the transverse process and the superior articular p rocess at the appropriate level as well as the sacral ala, and the needle was advanced until the periosteum contacted, needle placement confirmed with AP and oblique fluoroscopy, 0.2 mL of Isovue 200 per level was injected which revealed no vascular uptake and after negative aspiration, 1 mL of Ropivacaine 0.5% mixed with a total of 40 mg of Kenalog was injected at each level and the needle subsequently removed . At the end of the procedure and the needles were removed and a bandage applied after the skin was cleaned. The patient was taken to recovery room in stable condition and monitors in the recovery room for 20-30 minutes and discharged home in stable condition after discharge criteria met and patient will follow up for repeat procedure. EBL: Minimal COMPLICATION: None.
[2020-07-30 14:15] VITALS: BP 137/90; PULSE 97
--- NOTE | 2020-07-30 14:46 | FL ---
Fluoroscopy History: lumbar facet block 9 sec fl-3 images
== END 2020-07-30 14:33 | disposition home or self-care (01) ==
LOC: ORPAIN 12:49
PROVIDERS: ATTEND Anesthesiology
DX: M47.816 Spondylosis without myelopathy or radiculopathy, lumbar region (principal); J44.9 Chronic obstructive pulmonary disease, unspecified; E66.9 Obesity, unspecified; Z78.0 Asymptomatic menopausal state
CPT/HCPCS: 64493; 64494; 64495; J3301; J2795

== ENCOUNTER → 2020-09-06 | Outpatient (CLI) | payer OTHER ==
[2020-09-06 10:26] VITALS: BP 113/71; PULSE 104; RESP 18; TEMP 98
--- NOTE | 2020-09-06 10:58 | P.PN ---
Subjective Progress Note Date: 09/06/20 This is a 50-year-old morbidly obese lady with history of lower back pain and recent pain in the left leg with numbness. The patient's pain improved significantly after a lumbar medial branch block with 80% of pain relief as the patient states. Recently she started having some numbness in her left crockett when she stands for long periods of time. This happens only intermittently and it is not a constant complaint. Patient denies new-onset weakness, bowel/bladder incontinence, or any other signs or symptoms of cauda equina syndrome. There are no signs of acute intoxication, and no indications of medication diversion or overuse. In addition to above, 13-point review of systems is also negative for chest pain, shortness of breath, changes in vision, changes in hearing, new onset weakness, abdominal pain, diarrhea, extreme fatigue, malaise, fever, skin jason nges, homicidal or suicidal ideation, or bowel or bladder incontinence. Vital Signs: Reviewed in EMR Gen: AAOx3, NAD HEENT: PERRLA,hearing grossly normal Pulm: resp unlabored Neck: supple, trachea midline Neuro exam of the lower extremities: Normal and symmetrical muscle strength bilaterally Straight leg raising test: Negative bilaterally Quinten's test: Range of motion of the lumbar spine: Facet loading test: Positive on the lumbar area Tenderness in the paravertebral musculature: Mild tenderness in the lumbar paravertebral musculature Neuro: CN II-XII grossly intact, Imaging: Reviewed in EMR/chart Assessment: Morbid obesity Lumbar spondylosis without myelopathy Left lumbar radiculopathy Plan: 1. Explanation: Opioid and psychological risk scores were reviewed. Diagnoses, prognoses, and multiple treatment options including but not limited to physical therapy, interventional therapies, adjuvant medical therapies, narcotic medication therapies, and surgery were discussed with the patient and all questions were answered to the patient's satisfaction. 2. Opioid agreement: Signed with the patient and the patient is warned not to use opioids while driving or before driving and not to combine opioids with benzodiazepines or alcohol. 3. Counseling: The patient was counseled extensively on SMOKING CESSATION, BODY MASS INDEX, EXERCISE. Specifically, the patient was instructed regarding the importance of smoking cessation, obesity, and exercise in the context of both chronic pain and overall health. 4. Procedures: Scheduled for lumbar medial branch RFA bilaterally for levels L4 5 and L5-S1 under fluoroscopic guidance. The patient may need lumbar epidural steroid injection in the future for her left leg pain and numbness. 5. Consultations: None 6. Investigations: None 7. Medications: None 8. Disposition: Proceed with the above-mentioned procedure as soon as possible 9. Maps were reviewed and were appropriate. Objective - Vital Signs Vital signs: Vital Signs Temp 98.0 F 09/06/20 10:20 Pulse 104 H 09/06/20 10:20 Resp 18 09/06/20 10:20 BP 113/71 09/06/20 10:20 Pulse Ox 97 09/06/20 10:20
== END | disposition home or self-care (01) ==
LOC: PNWHC3 10:12
PROVIDERS: ATTEND Anesthesiology
DX: M47.26 Other spondylosis with radiculopathy, lumbar region (principal); E66.01 Morbid (severe) obesity due to excess calories
CPT/HCPCS: 99211

== ENCOUNTER → 2020-09-24 | Day surgery (SDC) | payer OTHER ==
[2020-09-23 10:41] VITALS: BMI 38.0
[~2020-09-24] MED LIST changes: +LIDOCAINE 1% INJ 10MG/ML (20 ML MDV) ONE; +MIDAZOLAM 2 MG/2 ML VIAL ONE; +ROPIVACAINE 5MG/ML 20ML VIAL ONE; +TRIAMCINOLONE ACETONIDE 40 MG/ML 1 ML VIAL ONE; +fentaNYL (PF) 50 MCG/ML 2 ML AMP ONE
[2020-09-24 11:24] VITALS: TEMP 98
--- NOTE | 2020-09-24 12:39 | P.PCN ---
Date of Procedure: 09/24/20 Surgeon: Bijal Mclean Pathology: none sent Condition: stable Disposition: PACU Description of Procedure: PREOPERATIVE DIAGNOSIS: Lumbar spondylosis without myelopathy, morbid obesity POSTOPERATIVE DIAGNOSIS: Lumbar spondylosis without myelopathy,morbid obesity PROCEDURES : Bilateral Radiofrequency thermocoagulation L4-L5, and L5-S1 medial branch, with fluoroscopic guidance ANESTHESIA: Local with 1% lidocaine and IV moderate sedation by the anesthesia department Physician:Bijal Mclean MD EBL: Minimal PROCEDURE INDICATION: The patient with low back pain secondary to lumbar facet arthropathy who had more than 50% relief of her pain with previous diagnostic lumbar medial branch block with bupivacaine. PROCEDURE DESCRIPTION / TECHNIQUE: The patient was seen and identified in the preoperative area. Risks, benefits, complications, including but not limited to risk of infection ,bleeding , allergic reactions to the medications and no complete pain relief , and alternatives were discussed with the patient, the patient agreed to proceed with the procedure and signed the consent. IV was started. Vital signs remained stable throughout the procedure. Patient was taken to the OR and time out was completed. The patient was placed in the prone position on the procedure table. The lumber area was prepped and draped in the usual sterile fashion. . Vital signs were closely monitored during the procedure .IV sedation was used during the procedure to decrease patients anxiety. The target points were identified as follows: For the L5-S1 level which corresponds to the dorsal ramus of L5 the target point was at the superior medial aspect of the sacral ala on the Rt side of the spine on the AP view of fluoroscopy and for the L3, and L4 medial branches the target points were at the connection between the transverse process and the superior articular process of L4, and L5 vertebra respectively on the -Rt oblique view of fluoroscopy. skin was marked, and localized with 1% lidocaineat these points. Subsequently, an 18 [id number] radiofrequency needles with a 10-mm curved active tips were advanced guided by fluoroscopy to each of the target points mentioned above in a superior medial direction to get the active tips as parallel as possible to the medial branches tracks. AP, oblique, and lateral views of fluoroscopy were used to verify needle tips position. Each level then underwent motor testing at 2.5 Hz and 0 to 3 volt with local stimulation, but no radicular symptoms down the legs. I then injected 1 mL of lidocaine 1% in each needle before starting radiofrequency thermocoagulation at 80 degrees celsius for 90 seconds. After that I injected 1 ml of PF Marcaine 0.5%(3 mls) with 40 mg of Kenalog, 1 mL of this mixture was given in each needle before taking the needles out intact. The procedure was repeated in the same manner on the left side. At the end of the procedure, the skin was cleansed and bandages were applied. A copy of needle placement fluoroscopy was saved on the C-arm machine. COMPLICATIONS: No acute complications. DISPOSITION / PLANS: The patient was placed in a supine position and transferred to the recovery area in a stable condition for observation and was discharged from the recovery room after meeting discharge criteria. Home discharge instructions given to the patient by the staff. The patient was reexamined prior to discharge. The patient will schedule a follow up in the clinic in 2-4 weeks.
[2020-09-24 12:45] VITALS: RESP 17
[2020-09-24 12:53] VITALS: BP 110/78; PULSE 94
--- NOTE | 2020-09-24 15:04 | FL ---
Fluoroscopy INDICATION: Pain FINDINGS: Fluoroscopy time: 34 seconds. Images obtained: 5. IMPRESSIONS: 1. Documentation of fluoroscopy.
== END ==
LOC: ORPAIN 11:03
PROVIDERS: ATTEND Anesthesiology
DX: M47.816 Spondylosis without myelopathy or radiculopathy, lumbar region (principal); M51.36 Other intervertebral disc degeneration, lumbar region; M48.061 Spinal stenosis, lumbar region without neurogenic claudication; I10 Essential (primary) hypertension; E78.5 Hyperlipidemia, unspecified; J45.909 Unspecified asthma, uncomplicated; K21.9 Gastro-esophageal reflux disease without esophagitis; E66.9 Obesity, unspecified; Z79.51 Long term (current) use of inhaled steroids; Z79.899 Other long term (current) drug therapy; Z78.0 Asymptomatic menopausal state
CPT/HCPCS: 64635; 64636; J2250; J3301; J2001; J3010; J2795

== ENCOUNTER → 2020-10-18 | Outpatient (CLI) | payer OTHER ==
[2020-10-18 13:42] VITALS: BP 150/76; PULSE 107; RESP 16; TEMP 98.1
--- NOTE | 2020-10-18 13:52 | P.PN ---
Subjective Progress Note Date: 10/18/20 This is a follow-up visit for this 50-year-old years old female, with a chronic history of severe low back pain she has been diagnosed with lumbar radiculopathy lumbar spinal stenosis, lumbar spondylosis with lumbar facet arthropathy, status post RFA of the medial branch lumbar area She reported that her pain improved significantly (70- 80 % improvement of her pain after the RFA ) but she is complaining of severe numbness and tingling sensation in the left lower extremity, numbness and tingling increases with activity and interfere with her activity of daily living Objective - Vital Signs Vital signs: Vital Signs Temp 98.1 F 10/18/20 13:39 Pulse 107 H 10/18/20 13:39 Resp 16 10/18/20 13:39 BP 150/76 10/18/20 13:39 Pulse Ox 97 10/18/20 13:39 - Exam -Constitutiona : Cooperative , not in acute distress . -HEENT : nech : supple , no Lymphadenopathy , normal thyroid size . : eyes : no ptosis , no icterus, no photophobia . - neurologic : Cranial nerve II to XII intact , no focal neurological deffecit . -psychatric : alert , oriented X 3 , appropriate affect , intact judgment and insight . -Lymphatic : no Lymphadenopathy . - musculoskeltal : Lumber spine moter stegnth lower extremities ,thigh and legs 4- 5/5 Right side , 4-5/5 Left side deep tendon reflexes : normal Knee Jerk , normal ankle Jerk lumber facet Loading Test =positive Right , positive Left Range of motion of the lumbar spine Flexion 30 degrees, extension 10 degrees strait leg raising test = positive at 30 degree Fabere test= positive Right , and positive LT . tenderness over the Sacroiliac joint on the Right , and Left sides MRI of the lumbar spine= L2-3 and L3 4 and L4 5 and L5-S1 foraminal stenosis, and lumbar degenerative disc disease Assessment and plan=1-lumbar radiculopathy. 2-lumbar spinal stenosis. 3-lumbar spondylosis with lumbar facet arthropathy. Status post RFA medial branch lumbar area Patient could benefit from lumbar epidural steroid injection at L5-S1 paramedian approach Prescription refill for Flexeril 10 mg 3 times a day dispense 90 with 2 refills given - PQRS measures = - Patient's medications are documented in the chart. -Tobacco use is positive, and counseling.Given. -Patient's has not received pneumococcal vaccine. -Advanced care planning discussed, patient not eligible. -Opiate contract not signed. -Pain positive and follow-up visit/procedure is scheduled. -Patient's blood pressure measured [ 150/76 ] , and documented in the record ,and patient will follow up with the primary care. -Patient's weight was measured and body mass index [ ] above the normal limits and counseling was done. and patient instructed to follow-up with the primary care physician. -Patient was not identified as an unhealthy alcohol user
== END | disposition home or self-care (01) ==
LOC: PNWHC3 13:25
PROVIDERS: ATTEND Specialist
DX: M48.061 Spinal stenosis, lumbar region without neurogenic claudication (principal); M47.26 Other spondylosis with radiculopathy, lumbar region
CPT/HCPCS: 99211

== ENCOUNTER 2020-11-23 08:44 | Day surgery (SDC) | payer OTHER ==
[2020-11-19 14:48] VITALS: BMI 38.0
[2020-11-23 09:04] VITALS: TEMP 97.9
[2020-11-23] MEDS ORDERED: LACTATED RINGERS 1,000 ML IV ONE (09:10)
[2020-11-23] MEDS ORDERED: LIDOCAINE 1% (10MG/ML) FOR IV START INTRADERMA ONE (09:10)
[2020-11-23] MEDS ORDERED: methylPREDNISolone ACETATE 40 MG/ML 1 ML VIAL ONE (09:22)
[2020-11-23] MEDS ORDERED: IOPAMIDOL M200 10 ML VIAL ONE (09:22)
[2020-11-23] MEDS ORDERED: MIDAZOLAM 2 MG/2 ML VIAL ONE (09:22)
[2020-11-23] MEDS ORDERED: LACTATED RINGERS 1,000 ML IV SCH (09:30)
--- NOTE | 2020-11-23 09:40 | P.PCN ---
Date of Procedure: 11/23/20 Description of Procedure: Procedure: 1. L5-A2Vbmolanu steroid injection under fluoroscopic guidance, 2. Lumbar epidurogram PREOPERATIVE DIAGNOSIS: Lumbar degenerative disc disease, and Lumbar radiculopathy. POSTOPERATIVE DIAGNOSIS: Lumbar degenerative disc disease, and Lumbar radicu lopathy. SURGEON: Salima Crouch ANESTHESIA: Local with 1% lidocaine, and IV sedation: Versed 2 mg EBL: None. Specimen removed: None Fluoroscopic image: saved to electronic medical records PROCEDURE INDICATION: The patient had history of Lumbar degenerative disc disease and Lumbar radiculopathy. Failed to conservative therapy. Presented for epidural steroid injection. PROCEDURE DESCRIPTION: The patient was seen and identified in the preoperative area. Risks, benefits, complications, and alternatives were discussed with the patient. The patient agreed to proceed with the procedure and signed the consent. IV was started, and vital signs were stable. Patient was taken to the procedure area, and time out was completed. The patient was placed in the prone position on procedure table and a pillow was placed under the abdomen to reduce lumbar lordosis. The lumbosacral area was prepped and draped in the usual sterile fashion. Critical pause was taken. Vital signs were closely monitored during the procedure. Using anterior-posterior fluoroscopy, the L5 - S1 interlaminar space was identified, and skin and deeper tissues were localized with 1% lidocaine. Using anterior-posterior fluoroscopy, lateral fluoroscopy, and [id number] technique, a 20 gauge 3.5 Tuohy epidural needle entered the epidural space. After negative aspiration of CSF and blood with no paresthesias, 1 ml of [id number] contrast dye was injected and an excellent epidurogram was seen. Again after negative aspiration of CSF and blood with no paresthesias, 6 mL of block solution was injected into the epidural space. Block solution contained 80 mg of Depo-Medrol, and 5 mL of preservative-free normal saline. Needle was withdrawn intact, skin was cleansed, and bandages were applied. COMPLICATIONS: None. DISPOSITION / PLANS: The patient was placed in a supine position and transferred to the recovery area in a stable condition for observation. Patient was discharged from the recovery room after meeting discharge criteria. Home discharge instructions given to the patient by the staff. The patient was reexamined prior to discharge. The patient will schedule a follow up in the clinic in 4 weeks.
[2020-11-23] MEDS ORDERED: IV FLUID CONTINUATION 1,000 ML IV ONE (09:49)
[2020-11-23 09:51] VITALS: RESP 18
[2020-11-23 10:00] VITALS: BP 117/74; PULSE 94
--- NOTE | 2020-11-23 12:43 | FL ---
Fluoroscopy HISTORY: Pain 10 seconds fluoroscopy time supplied to the referring clinician. 2 intraoperative C-arm images docum ent the procedure. See dictated report from anesthesia.
== END 2020-11-23 10:00 | disposition home or self-care (01) ==
LOC: ORPAIN 08:44
DX: M51.16 Intervertebral disc disorders with radiculopathy, lumbar region (principal); J44.9 Chronic obstructive pulmonary disease, unspecified; Z78.0 Asymptomatic menopausal state
CPT/HCPCS: 62323; J2250; J1030; Q9966; 99152

== ENCOUNTER → 2020-12-22 | Outpatient (CLI) | payer OTHER ==
[2020-12-22 10:20] VITALS: BP 122/66; PULSE 111; RESP 16; TEMP 98.3
--- NOTE | 2020-12-22 10:36 | P.PN ---
Subjective Progress Note Date: 12/22/20 Mac is a 50-year-old female presenting for follow-up today. She has been seen in our clinic multiple times for low back pain. She has a history of low back pain as well as lumbar radiculopathy. On her visit today she recently had an epidural steroid injection at the L5-S1 level. She reports that that has helped with the pain that had presented a shooting down her leg beyond the knee. She reports that that pain has improved significantly. She still having low back pain and she reports perceived weakness. She reports she's fallen twice over the last few months. She feels that her foot is flopping when she walks occasionally. She still able to stand but has significant pain with standing. 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 She feels that she is unable stand for more than 15 minutes as that causes pain in her low back and causes her legs to feel weak. She has seen Dr. Harris in the past and had recommended surgery but she reports she was unable to have the surgery because of her financial situation. She is presenting today for other options. I've explained that she's had multiple interventional procedures. I reviewed her MRI detail that was done in 2019. The MRI of the lumbar spine at that time detailed a slight scoliosis with diffuse multilevel degenerative changes mostly at L4-L5. There is significant neural foraminal stenosis L3 4, L4-L5, and L5-S1. Review of Systems: Denies any New chest pain, short of breath, Nausea/vomitting, abdominal pain, bowel or bladder incontinence, or any overt new neurologic symptoms in the upper or lower extremities outside of what is noted in the HPI Objective - Vital Signs Vital signs: Vital Signs Temp 98.3 F 12/22/20 10:13 Pulse 111 H 12/22/20 10:13 Resp 16 12/22/20 10:13 BP 122/66 12/22/20 10:13 Pulse Ox 97 12/22/20 10:13 - Exam General: Awake and alert oriented 3 no distress Respiratory exam: No audible wheezing no accessory muscle usage Cardiovascular exam: regular rate, palpable bilateral pulses, no lower extremity edema Cervical spine: Normal alignment, Spurling's negative, facet loading negative, 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 Flexion is preserved. Extension is limited to about -5. Lower extremity strength at the quadriceps is preserved. Her hamstring strength is decreased bilaterally. Her anterior tibialis on the right is significantly decreased compared to the left. Plantar flexion is preserved bilaterally. Sacroiliac joints: Nontender to palpation, JILLIAN is negative, Gaenselon negative with freely moving hip joints bilaterally. Neuro exam: Normal sensation in bilateral upper extremities, deep tendon reflexes are 2+ bilateral upper extremities. Normal sensation in bilateral low er extremities. Deep tendon reflexes are diminished in lower extremities Psych exam: Cooperative, appropriate mood Assessment and Plan Assessment: #1 lumbar spinal stenosis #2 neurogenic claudication #3 neural foraminal stenosis #4 obesity Plan: At this point I discussed with the patient that concerned with her recent falls and progressive weakness. I would like to repeat the MRI and have her follow up with Dr. Goldberg's and and or Dr. Allen. I have given her a second opinion if she like to move forward with that recommendation. I believe that she's having progressive myelopathy likely secondary to worsening spinal stenosis. I will hold off on any procedures at this point. No medications were prescribed today I have spent 31 minutes on patient care today. The time was used to review the medical records including relevant urine studies and Prescription history (MAPs), review of the available imaging, evaluation and examination of the patient, coordination of care with the medical staff and if applicable referring physicians, as well as creation of the medical record. Maps were checked and appropriate
== END ==
LOC: PNWHC3 10:01
PROVIDERS: ATTEND Hospitalist
DX: M48.062 Spinal stenosis, lumbar region with neurogenic claudication (principal); E66.9 Obesity, unspecified; F17.200 Nicotine dependence, unspecified, uncomplicated; Z68.36 Body mass index [BMI] 36.0-36.9, adult
CPT/HCPCS: 99211

== ENCOUNTER → 2021-01-08 | Outpatient (CLI) | payer OTHER ==
--- NOTE | 2021-01-08 14:54 | MR ---
EXAMINATION TYPE: MR lumbar spine wo con DATE OF EXAM: 01/08/2021 COMPARISON: Plain film 03/12/2019 HISTORY: Low back pain into legs, pain to walk or stand TECHNIQUE: Multiplanar, multisequence images of the lumbar spine were acquired. L1-L2: Posterior disc bulge causes only mild anterior mass effect on the thecal sac. No significant s adolfo stenosis. There is facet arthropathy change. L2-L3: Posterior extension endplate disc complex causes anterior mass effect on the thecal sac. There is mild to moderate spinal stenosis. Circumferential extension endplate disc complex encroaches upon the foramina on the right greater than left. L3-L4: Facet arthropathy with hypertrophy of ligamentum flavum is noted. There is circumferential ext ension endplate disc complex encroaching upon the inferior foramina greater on the right. 1 mild spin al stenosis. L4-L5: There is a trefoil appearance of the thecal sac, moderate to severe spinal stenosis, facet art hropathy with hypertrophy ligamentum flavum causes posterior lateral mass effect on the thecal sac. T here is some encroachment upon the lateral recess greater on the left. Circumferential extension endp late disc complex combined with the listhesis causes foraminal encroachment greater on the left than on the right. L5-S1: Posterior extension endplate disc complex causes anterior mass effect on the thecal sac, possi marlys contact with the proximal S1 nerve roots. There is facet arthropathy with hypertrophy ligamentum flavum. No significant spinal stenosis. Circumferential extension endplate disc complex results in fo raminal encroachment bilaterally. Superior margin of S1 on the left shows a T2 bright focus, T1 hypoi ntense, possible local bone erosion, ganglion cyst or geode formation laterally. Lumbar segments are intact. No paraspinal masses are identified. Conus medullaris has a normal appe arance. There is retrolisthesis grade 1 L5-S1, anterolisthesis grade 1 L4-5. Multilevel spondylosis i s present, there is loss of disc height signal at intervertebral levels. Spinal curvature is noted. E ndplate discogenic marrow signal changes are present. Lumbar vertebral bodies show preserved height. Cortical cyst is associated with the lower pole the right kidney measuring approximately 2.7 cm. Para pelvic cysts suspected within the left kidney. IMPRESSION: Degenerative disc disease, facet arthropathy, spinal stenosis, multilevel foraminal encroachment, spi nal curvature. Additional findings above.
== END | disposition home or self-care (01) ==
LOC: RADMRIMAIN 07:31
PROVIDERS: ATTEND Hospitalist
DX: M48.061 Spinal stenosis, lumbar region without neurogenic claudication (principal); M51.26 Other intervertebral disc displacement, lumbar region; M51.36 Other intervertebral disc degeneration, lumbar region; M12.88 Other specific arthropathies, not elsewhere classified, other specified site
CPT/HCPCS: 72148

== ENCOUNTER → 2021-01-12 | Outpatient (CLI) | payer OTHER ==
[2021-01-12 09:13] VITALS: BP 106/77; PULSE 87; RESP 18; TEMP 97.5
== END ==
LOC: PNWHC3 08:52
PROVIDERS: ATTEND Anesthesiology
DX: M47.816 Spondylosis without myelopathy or radiculopathy, lumbar region (principal); M48.061 Spinal stenosis, lumbar region without neurogenic claudication; E66.01 Morbid (severe) obesity due to excess calories; F17.200 Nicotine dependence, unspecified, uncomplicated; Z68.37 Body mass index [BMI] 37.0-37.9, adult
CPT/HCPCS: 99211

== ENCOUNTER → 2021-01-12 | Outpatient (CLI) | payer OTHER ==
--- NOTE | 2021-01-12 09:54 | P.PN ---
Subjective Progress Note Date: 01/12/21 This is a 50-year-old morbidly obese lady with history of chronic lower back pain with radiation to the lower extremities. It alternates between right and left leg today is painful in the right buttock area. The patient also gets numbness and tingling occasionally in the lower extremities and no specific radicular distribution. She had an MRI of the lumbar spine which showed moderate to severe central canal stenosis at the L4 5 level with facet arthropathy and also similar changes at the L5-S1 level with possible contact with the proximal S1 nerve roots .the patient is scheduled to see Dr. Goldberg in a few weeks. The patient had multiple injections in her back with some relief of pain however is not long-lasting. She has been taking Voltaren twice a day which has been working well for her pain. Patient denies new-onset weakness, bowel/bladder incontinence, or any other signs or symptoms of cauda equina syndrome. There are no signs of acute intoxication, and no indications of medication diversion or overuse. In addition to above, 13-point review of systems is also negative for chest pain, shortness of breath, changes in vision, changes in hearing, new onset weakness, abdominal pain, diarrhea, extreme fatigue, malaise, fever, skin changes, homicidal or suicidal ideation, or bowel or bladder incontinence. Vital Signs: Reviewed in EMR Gen: AAOx3, NAD HEENT: PERRLA,hearing grossly normal Pulm: resp unlabored Neck: supple, trachea midline Neuro exam of the lower extremities: Normal Straight leg raising test: Negative bilaterally Quinten's test: Negative bilaterally Range of motion of the lumbar spine: Facet loading test: Tenderness in the paravertebral musculature: Positive on the lumbar area bilaterally Neuro: CN II-XII grossly intact, Imaging: Reviewed in EMR/chart Assessment: Morbid obesity Lumbar spondylosis without myelopathy Lumbar stenosis Plan: 1. Explanation: Opioid and psychological risk scores were reviewed. Diagnoses, prognoses, and multiple treatment options including but not limited to physical therapy, interventional therapies, adjuvant medical therapies, narcotic medication therapies, and surgery were discussed with the patient and all questions were answered to the patient's satisfaction. 2. Opioid agreement: Signed with the patient and the patient is warned not to use opioids while driving or before driving and not to combine opioids with benzodiazepines or alcohol. 3. Counseling: The patient was counseled extensively on SMOKING CESSATION, BODY MASS INDEX, EXERCISE. Specifically, the patient was instructed regarding the importance of smoking cessation, obesity, and exercise in the context of both chronic pain and overall health. 4. Procedures: None for now 5. Consultations: The patient will see Dr. Shah. I do not think that she needs surgery on her back on an urgent or emergent basis however of her pain is responding to treatment she might think of having surgery in the future. 6. Investigations: None 7. Medications: Continue Voltaren as needed 8. Disposition: Return to clinic in 4 weeks 9. Maps were reviewed and were appropriate.
[2021-01-12 15:23] LABS: African American GFR (CKD) 117.1 (60.0-200.0); Albumin 4.2 g/dL (3.80-4.90); Albumin/Globulin Ratio 2.1 (1.60-3.17); BUN/Creat Ratio 27.14 Ratio (12.00-20.00); C Reactive Protein 0.4 mg/dL (0.0-0.8); Calcium 9.1 mg/dL (8.7-10.3); Chol/HDL Ratio 2.35; LDL Cholesterol,Calculated 82.6 mg/dL (0.0-131.0); Potassium 4.5 mmol/L (3.5-5.5); Total Bilirubin 0.5 mg/dL (0.3-1.2); Total Protein 6.2 g/dL (6.2-8.2); VLDL Calculation 18.4 mg/dL (5.00-40.00)
[2021-01-12 16:57] LABS: Basophils # (A) 0.06 X 10*3/uL (0.00-0.10); Basophils % (A) 1.1 %; Eosinophils # (A) 0.17 X 10*3/uL (0.04-0.35); Eosinophils % (A) 3.2 %; HCT 38.6 % (37.2-46.3); Lymphocytes # (A) 1.73 X 10*3/uL (0.90-5.00); Lymphocytes % (A) 32.2 %; MCH 29.4 pg (27.0-32.0); MCHC 31.1 g/dL (32.0-37.0); MCV 94.6 fL (80.0-97.0); Mean Platelet Volume 10.8 fL (9.5-12.2); Monocytes # (A) 0.44 X 10*3/uL (0.20-1.00); Monocytes % (A) 8.2 %; Neutrophils # (A) 2.95 X 10*3/uL (1.80-7.70); Neutrophils % (A) 54.9 %; Platelet Count 289 X 10*3/uL (140-440); RBC 4.08 X 10*6/uL (4.10-5.20); RDW 13.2 % (11.5-14.5); WBC 5.37 X 10*3/uL (4.50-10.00)
[2021-01-12 19:21] LABS: Erythrocyte Sedimentation Rate 9 mm/Hr (0-20)
== END | disposition home or self-care (01) ==
LOC: LABWHC1 07:59
PROVIDERS: ATTEND Internal Medicine
DX: Z00.00 Encounter for general adult medical examination without abnormal findings (principal); E55.9 Vitamin D deficiency, unspecified; M19.90 Unspecified osteoarthritis, unspecified site; E78.5 Hyperlipidemia, unspecified; E66.9 Obesity, unspecified; J44.9 Chronic obstructive pulmonary disease, unspecified; D64.9 Anemia, unspecified
CPT/HCPCS: 36415; 80053; 80061; 82306; 82550; 84443; 85025; 85652; 86140

== ENCOUNTER → 2021-01-24 | Outpatient (CLI) | payer OTHER | END | disposition home or self-care (01) | LOC: LABWHC1 08:49 | PROVIDERS: ATTEND Internal Medicine | DX: E11.65 Type 2 diabetes mellitus with hyperglycemia (principal) | CPT/HCPCS: 36415; 82947; 83036 ==

== ENCOUNTER → 2021-02-08 | Outpatient (CLI) | payer OTHER ==
--- NOTE | 2021-02-08 14:39 | CT ---
EXAMINATION TYPE: CT lumbar spine wo con DATE OF EXAM: 02/08/2021 2:18 PM COMPARISON: None HISTORY: Low back pain CT DLP: 1219.4 mGycm Automated exposure control for dose reduction was used. Unenhanced CT of the lumbar spine was performed. Bone and soft tissue window settings are submitted as well as coronal and sagittal reconstructions. L1-L2: Mild vacuum disc noted. Posterior disc bulge. Ventral spondylosis. No evidence of herniation, protrusion or central stenosis. L2-L3: Vacuum disks noted with severe degenerative disc space narrowing. Posterior disc bulge with en capsulating spur resulting in disc endplate complex. Mild central stenosis. Facet joint arthropathy. L3-L4: Vacuum disks noted with severe degenerative disc space narrowing. Posterior disc bulge with en capsulating spur resulting in disc endplate complex. Mild central stenosis. Facet joint arthropathy. L4-L5: Severe degenerative disc disease with vacuum disc. Endplate sclerosis identified. 5 mm anterol isthesis L4 and L5. Distortion of the thecal sac with moderate central stenosis. Vacuum changes of th e facet joints. Left foraminal encroachment. L5-S1: Severe degenerative disc disease with endplate sclerosis. Vacuum disc. Posterior disc bulge wi th effacement of the ventral thecal sac and bilateral lateral recess stenosis. Bilateral foraminal en croachment. Facet joint arthropathy. IMPRESSION: Severe multilevel degenerative disc disease with vacuum disc endplate sclerosis and multilevel centra l stenosis.
== END | disposition home or self-care (01) ==
LOC: RADCTMAIN 13:20
PROVIDERS: ATTEND Orthopaedic Surgery
DX: M48.061 Spinal stenosis, lumbar region without neurogenic claudication (principal); M51.36 Other intervertebral disc degeneration, lumbar region
CPT/HCPCS: 72131

== ENCOUNTER → 2021-02-09 | Outpatient (CLI) | payer OTHER ==
[2021-02-09 09:57] VITALS: BP 113/75; PULSE 101; RESP 16; TEMP 97.6
--- NOTE | 2021-02-09 10:34 | P.PN ---
Subjective Progress Note Date: 02/09/21 This is follow-up visit for this 50 years old female with a chronic history of severe low back pain, diagnosed with lumbar spinal stenosis and lumbar spondylosis with lumbar facet arthropathy, recently we have done RFA of the medial branch lumbar area, she had significant improvement of her low back pain, she continued to have severe lower extremity pain associated with numbness and tingling sensation, denies any weakness in her lower extremity she denies any fever or night sweats which she denies any change in the bowel movement or urination, previously sold the Dr. Allen( spine surgeon ) and he recommended surgical interventions, and she saw Dr. Shah ( spine surgeon ) and he recommended surgical intervention slso , patient not willing to have surgery at this point because of financial reasons, she cannot afford to be off work , she reported that she had no benefit from Flexeril and she is asking if he can change her muscle relaxant, who she is having a lot of muscle spasm during the daytime and at night, she tried physical therapy without any benefit, he tried oral pain medication without any significant benefit,she continue to work at [employer] Objective - Vital Signs Vital signs: Vital Signs Temp 97.6 F 02/09/21 09:55 Pulse 101 H 02/09/21 09:55 Resp 16 02/09/21 09:55 BP 113/75 02/09/21 09:55 Pulse Ox 100 02/09/21 09:55 - Exam Physical Examinations : -Constitutiona : Cooperative , not in acute distress . -HEENT : nech : supple , no Lymphadenopathy , normal thyroid size . : eyes : no ptosis , no icterus, no photophobia . - neurologic : Cranial nerve II to XII intact , no focal neurological deffecit . -psychatric : alert , oriented X 3 , appropriate affect , intact judgment and insight . -Lymphatic : no Lymphadenopathy . - musculoskeltal : Lumber spine moter stegnth lower extremities ,thigh and legs 5/5 Right side , 5/5 Left side deep tendon reflexes : normal Knee Jerk , normal ankle Jerk lumber facet Loading Test =positive Right , positive Left Range of motion of the lumbar spine Flexion 30 degrees, extension 10 degrees strait leg raising test = positive at 30 degree Fabere test= positive Right , and positive LT . tenderness over the Sacroiliac joint on the Right , and Left sides Computed tomography scan of the lumbar spine and severe degenerative disc disease and multilevel lumbar foraminal stenosis, and multilevel lumbar central canal stenosis Assessment and Plan Plan: Assessment and plan=1-lumbar spinal stenosis. 2-Lumber degenerative disc disease. 3- Lumbar spondylosis with lumbar facet arthropathy. Patient not willing to have surgery at this point(due to financial issues ). Discontinue Flexeril, start patient on Zanaflex 4 mg every 8 hours when necessary muscle spasm, she'll continue NSAIDs as prescribed by her primary care, and could benefit from lumbar epidural steroid injection at L4 5 Time with Patient: Less than 30
== END ==
LOC: PNWHC3 09:11
PROVIDERS: ATTEND Specialist
DX: M51.36 Other intervertebral disc degeneration, lumbar region (principal); M48.061 Spinal stenosis, lumbar region without neurogenic claudication; M47.816 Spondylosis without myelopathy or radiculopathy, lumbar region; F17.200 Nicotine dependence, unspecified, uncomplicated
CPT/HCPCS: 99211

== ENCOUNTER → 2021-03-01 | Outpatient (CLI) | payer OTHER ==
--- NOTE | 2021-03-02 11:03 | MM ---
Reason for exam: screening (asymptomatic). Last mammogram was performed 1 year ago. History: Patient is postmenopausal and is nulliparous. Family history of breast cancer in mother. Benign US biopsy breast VAD RT of the right breast, July 20, 2015. Took hormonal contraceptives for 23 years beginning at age 20. Physical Findings: A clinical breast exam by your physician is recommended on an annual basis and results should be correlated with mammographic findings. MG Screening Mammo w CAD Bilateral CC and MLO view(s) were taken. Prior study comparison: February 25, 2020, bilateral MG screening mammo w CAD. February 25, 2018, bilateral MG screening mammo w CAD. There are scattered fibroglandular densities. Stable benign calcifications. There is no discrete abnormality. No significant changes when compared with prior studies. ASSESSMENT: Benign, BI-RAD 2 RECOMMENDATION: Routine screening mammogram of both breasts in 1 year.
== END | disposition home or self-care (01) ==
LOC: RADMAMWWP 13:09
PROVIDERS: ATTEND Internal Medicine
DX: Z12.31 Encounter for screening mammogram for malignant neoplasm of breast (principal); Z78.0 Asymptomatic menopausal state; Z80.3 Family history of malignant neoplasm of breast; Z79.3 Long term (current) use of hormonal contraceptives
CPT/HCPCS: 77067

== ENCOUNTER 2021-03-08 08:55 | Day surgery (SDC) | payer OTHER ==
[2021-03-04 11:13] VITALS: BMI 38.4
[~2021-03-08 08:55] MED LIST changes: -LIDOCAINE 1% INJ 10MG/ML (20 ML MDV) ONE; -MIDAZOLAM 2 MG/2 ML VIAL ONE; -ROPIVACAINE 5MG/ML 20ML VIAL ONE; -TRIAMCINOLONE ACETONIDE 40 MG/ML 1 ML VIAL ONE; -fentaNYL (PF) 50 MCG/ML 2 ML AMP ONE
[2021-03-08] MEDS ORDERED: LACTATED RINGERS 1,000 ML IV ONE ×2 (09:08)
[2021-03-08 09:26] VITALS: RESP 16; TEMP 97.6
[2021-03-08] MEDS ORDERED: MIDAZOLAM 2 MG/2 ML VIAL ONE (09:26)
[2021-03-08] MEDS ORDERED: ROPIVACAINE 5MG/ML 20ML VIAL ONE (09:26)
[2021-03-08] MEDS ORDERED: fentaNYL (PF) 50 MCG/ML 2 ML AMP ONE (09:26)
[2021-03-08] MEDS ORDERED: IOPAMIDOL M200 10 ML VIAL ONE (09:26)
[2021-03-08] MEDS ORDERED: TRIAMCINOLONE ACETONIDE 40 MG/ML 1 ML VIAL ONE (09:26)
--- NOTE | 2021-03-08 09:44 | P.PCN ---
Date of Procedure: 03/08/21 Surgeon: Bijal Mclean Pathology: none sent Condition: stable Disposition: PACU Description of Procedure: PREOPERATIVE DIAGNOSIS: 1-Lumbar stenosis 2- Lumber Degenerative Disc Diseases. POSTOPERATIVE DIAGNOSIS: 1-lumbar stenosis 2-Lumbar Degenerative Disc Diseases PROCEDURE 1. Lumbar epidural steroid injection under fluoroscopic guidance at the L5-S1 level. 2. Lumbar epidurogram. ANESTHESIA: Local with 1% lidocaine; and IV moderate conscious sedation with Versed and fentanyl EBL: Minimal PROCEDURE INDICATION: The patient with low back pain and radiculitis symptoms unresponsive to conservative treatment. Fluoroscopy was used to optimize visualization of the needle placement and to maximize safety. PROCEDURE DESCRIPTION / TECHNIQUE: The patient was seen and identified in the preoperative area. Risks, benefits, complications including but not limited to infections ,bleeding ,allergic reaction to the medications ,nerve damage and not complete pain relief , and alternatives were discussed with the patient. The patient agreed to proceed with the procedure and signed the consent. IV was started, and vital signs were stable. Patient was taken to the OR and time out was completed. The patient was placed in the prone position on procedure table and a pillow was placed under the abdomen to reduce lumbar lordosis. The lumbosacral area was prepped and draped in the usual sterile fashion with ChloraPrep.Patient was closely monitored during the procedure. Conscious sedation was used during the procedure to decrease patients anxiety. Vital signs were monitered during the entire procedure. Using anterior-posterior fluoroscopy, the L4-5 interlaminar space was identified and the skin over this site was marked and then infiltrated with 1% lidocaine subcutaneously. Subsequently, a 18-gauge 6 "Tuohy epidural needle was inserted and advanced toward the epidural space using the Loss of resistance to air technique and guided by AP and lateral fluoroscopy. The correct needle position in the epidural space was verified with the injection of 1 mL of the water soluble contrast dye Omnipaque 180 contrast and observing an excellent epidurogram with the epidural spread of the dye, after negative aspiration for blood and CSF and in the absence of paresthesias. Again after negative aspiration, a 8 ml mixture containing 80 mg of Kenalog and 5 ml of preservative free Normal Saline, and 2 ml of preservative free ropivacaine 0.5% solution was injected and a washout of epidurogram was seen. Needle was withdrawn intact, skin was cleansed, and bandages were applied. patient tolerated procedure well and was transferred to PACU in stable condition.A copy of the needle placement picture was saved to the fluoroscopy machine. COMPLICATIONS: None DISPOSITION / PLANS: The patient was placed in a supine position and transferred to the recovery area in a stable condition for observation. There was no evidence of lower extremity motor or sensory deficit after the procedure. Patient was discharged from the recovery room after meeting discharge criteria. Home discharge instructions were given to the patient by the staff. The patient was reexamined prior to discharge. The patient will schedule a follow up in the clinic in 2-4 weeks.
[2021-03-08] MEDS ORDERED: IV FLUID CONTINUATION 1,000 ML IV ONE (09:47)
[2021-03-08 10:04] VITALS: BP 111/57; PULSE 86
--- NOTE | 2021-03-08 11:03 | FL ---
Fluoroscopy INDICATION: Pain FINDINGS: Fluoroscopy time: 12 seconds. Images obtained: 2. IMPRESSIONS: 1. Documentation of fluoroscopy.
== END 2021-03-08 10:26 | disposition home or self-care (01) ==
LOC: ORPAIN 08:55
PROVIDERS: ATTEND Anesthesiology
DX: M48.061 Spinal stenosis, lumbar region without neurogenic claudication (principal); M51.36 Other intervertebral disc degeneration, lumbar region
CPT/HCPCS: 62323; J2250; J3301; J3010; Q9966; J2795; 99152

== ENCOUNTER 2021-04-12 08:55 | Day surgery (SDC) | payer OTHER ==
[2021-04-06 15:17] VITALS: BMI 36.3
[2021-04-12] MEDS ORDERED: LIDOCAINE 1% (10MG/ML) FOR IV START INTRADERMA ONE (09:23)
[2021-04-12 09:26] VITALS: TEMP 97.5
[2021-04-12] MEDS ORDERED: methylPREDNISolone ACETATE 40 MG/ML 1 ML VIAL ONE (09:43)
[2021-04-12] MEDS ORDERED: IOPAMIDOL M200 10 ML VIAL ONE (09:43)
[2021-04-12] MEDS ORDERED: fentaNYL (PF) 50 MCG/ML 2 ML AMP ONE (09:43)
[2021-04-12] MEDS ORDERED: MIDAZOLAM 2 MG/2 ML VIAL ONE (09:43)
--- NOTE | 2021-04-12 10:01 | P.PCN ---
Date of Procedure: 04/12/21 Procedure(s) Performed: PREOPERATIVE DIAGNOSIS: 1- Lumbar Degenerative Disc Diseases 2-Lumbar spondylosis with Facet arthropathy without myelopathy 3-lumbar spinal stenosis POSTOPERATIVE DIAGNOSIS: Same as preop diagnosis. PROCEDURE 1. Lumbar epidural steroid injection under fluoroscopic guidance at the L4-5 level. (Fluoroscopy imaging was available in radiology department) 2. Lumbar epidurogram. ANESTHESIA: Local with 1% lidocaine 3 ml and , moderate sedation with intravenous Versed 2 mg ,and fentanyle 100 Mcg EBL: Minimal PROCEDURE INDICATION: The patient with low back pain and radiculitis symptoms unresponsive to conservative treatment. Fluoroscopy was used to optimize visualization of the needle placement and to maximize safety. PROCEDURE DESCRIPTION / TECHNIQUE: The patient was seen and identified in the preoperative area. Risks, benefits, complications including but not limited to infections ,bleeding ,allergic reaction to the medications ,nerve damage and not complete pain releife , and alternatives were discussed with the patient. The patient agreed to proceed with the procedure and signed the consent. IV was started, and vital signs were stable. Patient was taken to the OR and time out was completed. The patient was placed in the prone position on procedure table and a pillow was placed under the abdomen to reduce lumbar lordosis. The lumbosacral area was prepped and draped in the usual sterile fashion.ere closely monitored during the procedure. Conscious sedation was used during the procedure to decrease patients anxiety. Vital signs was monitered during the entire procedure. Using anterior-posterior fluoroscopy, the L4-5 interlaminar space was identified and the skin over this site was marked and then infiltrated with 1% lidocaine subcutaneously. Subsequently, a 20-gauge Tuohy epidural needle was inserted and advanced toward the epidural space using the ``Loss of resistance technique and guided by AP and lateral fluoroscopy. The correct needle position in the epidural space was verified with the injection of 2 mL of the water soluble contrast dye Isovue 200 contrast and observing an excellent epidurogram with the epidural spread of the dye, after negative aspiration for blood and CSF and in the absence of paresthesias. Again after negative aspiration, a 6 ml mixture containing 80 mg of Depo-medrol , and 2 ml of preservative free Normal Saline, and 2 ml of preservative free lidocaine 1% solution was injected and a washout of epidurogram was seen. Needle was withdrawn intact, skin was cleansed, and bandages were applied. COMPLICATIONS: None DISPOSITION / PLANS: The patient was placed in a supine position and transferred to the recovery area in a stable condition for observation. There was no evidence of lower extremity motor or sensory deficit after the procedure. Patient was discharged from the recovery room after meeting discharge criteria. Home discharge instructions were given to the patient by the staff. The patient was reexamined prior to discharge. The patient will schedule a follow up in the clinic in 2-4 weeks.
[2021-04-12] MEDS ORDERED: IV FLUID CONTINUATION 700 ML IV ONE (10:04)
[2021-04-12 10:10] VITALS: RESP 20
--- NOTE | 2021-04-12 10:31 | FL ---
Fluoroscopy History: Lumbar Epid Inj 23sec fluoro time,1 image to PACS
[2021-04-12 10:53] VITALS: BP 109/70; PULSE 90
== END 2021-04-12 10:34 | disposition home or self-care (01) ==
LOC: ORPAIN 08:55
PROVIDERS: ATTEND Specialist
DX: M51.36 Other intervertebral disc degeneration, lumbar region (principal); M47.816 Spondylosis without myelopathy or radiculopathy, lumbar region; M48.061 Spinal stenosis, lumbar region without neurogenic claudication
CPT/HCPCS: 62323; 64483; J2250; J1030; J3010; Q9966; 99152

== ENCOUNTER → 2021-05-09 | Outpatient (CLI) | payer OTHER ==
--- NOTE | 2021-05-09 10:11 | P.PN ---
Subjective Progress Note Date: 05/09/21 This is a follow-up visit for this 50-year-old years old female, with a chronic history of severe low back pain ,she is diagnosed with lumbar radiculopathy lumbar spinal stenosis, and lumbar , previously well done lumbar epidural steroid injections , and more than 7 months ago we have done RFA of the medial branch lumbar area, likely she has severe low back pain which is increased with any activity, currently she use Zanaflex 4 mg every 8 hours and Motrin 800 mg daily at bedtime when necessary and she used marijuana Review of systems is negative for chest pain, shortness of breath, new onset weakness, numbness/tingling, abdominal pain, malaise, fever, night sweats, chills, homicidal or suicidal ideation, or bowel or bladder incontince - Exam -Constitutiona : Cooperative , not in acute distress . -HEENT : nech : supple , no Lymphadenopathy , normal thyroid size . : eyes : no ptosis , no icterus, no photophobia . - neurologic : Cranial nerve II to XII intact , no focal neurological deffecit . -psychatric : alert , oriented X 3 , appropriate affect , intact judgment and insight . -Lymphatic : no Lymphadenopathy . - musculoskeltal : Lumber spine moter stegnth lower extremities ,thigh and legs 4- 5/5 Right side , 4-5/5 Left side deep tendon reflexes : normal Knee Jerk , normal ankle Jerk lumber facet Loading Test =positive Right , positive Left Range of motion of the lumbar spine Flexion 30 degrees, extension 10 degrees strait leg raising test = positive at 30 degree Fabere test= positive Right , and positive LT . tenderness over the Sacroiliac joint on the Right , and Left sides MRI of the lumbar spine= L2-3 and L3 4 and L4 5 and L5-S1 foraminal stenosis, and lumbar degenerative disc disease Assessment and plan=1-lumbar radiculopathy. 2-lumbar spinal stenosis. 3-lumbar spondylosis with lumbar facet arthropathy. We'll schedule patient for repeat RFA medial branch block L3, L4, L5 to target the facet joint at L4 5 and L5-S1 - PQRS measures = - Patient's medications are documented in the chart. -Tobacco use is positive, and counseling.Given. -Patient's has not received pneumococcal vaccine. -Advanced care planning discussed, patient not eligible. -Opiate contract not signed. -Pain positive and follow-up visit/procedure is scheduled. -Patient's blood pressure measured [ 104/67 ] , and documented in the record ,and patient will follow up with the primary care. -Patient's weight was measured and body mass index [35 ] above the normal limits and counseling was done. and patient instructed to follow-up with the primary care physician. -Patient was not identified as an unhealthy alcohol user Objective - Vital Signs Vital signs: Intake & Output 05/08/21 05/09/21 05/09/21 18:59 06:59 18:59 Weight 90.718 kg
[2021-05-09 10:27] VITALS: BP 104/67; PULSE 88; RESP 18; TEMP 97.3
== END ==
LOC: PNWHC3 09:12
PROVIDERS: ATTEND Specialist
DX: M47.26 Other spondylosis with radiculopathy, lumbar region (principal); M48.061 Spinal stenosis, lumbar region without neurogenic claudication; F17.200 Nicotine dependence, unspecified, uncomplicated
CPT/HCPCS: 99211

== ENCOUNTER → 2021-06-17 | Day surgery (SDC) | payer OTHER ==
[2021-06-15 11:45] VITALS: BMI 34.3
[~2021-06-17] MED LIST changes: +IV FLUID CONTINUATION 1,000 ML IV ONE; +MIDAZOLAM 2 MG/2 ML VIAL ONE; +ROPIVACAINE 5MG/ML 20ML VIAL ONE; +TRIAMCINOLONE ACETONIDE 40 MG/ML 1 ML VIAL ONE; +fentaNYL (PF) 50 MCG/ML 2 ML AMP ONE
[2021-06-17 11:49] VITALS: RESP 16; TEMP 97.7
--- NOTE | 2021-06-17 12:47 | P.PCN ---
Date of Procedure: 06/17/21 Description of Procedure: Pre- and Post-operative Diagnosis: Lumbar facet arthropathy, and lumbar spon dylosis without myelopathy. Procedure: Bilateral L4-5 radiofrequency thermocoagulation of medial branch under fluoroscopic guidance Bilateral L5-S1 dorsal ramus radiofrequency thermocoagulation under fluoroscopic guidance Surgeon: Salima Sahu Anesthesia: Local: 1% Lidocaine, IV sedation : Midazolam 2 mg, and fentanyl 100+ 50 + 50 micrograms. Complications: None Estimated blood loss: None. Specimen removed: None Fluoroscopic image: Saved to patient electronic medical records. Indications for Procedure: The patient is well known to pain clinic for his chronic low back pain management. The lumbar facet loading test was positive with a clinical diagnosis of lumbar facet arthropathy. Patient had marked decrease in pain after the diagnostic medial branch procedure. Came here for radiofrequency ablation for longer pain relief. PROCEDURE DESCRIPTION: The patient was seen and identified in the preoperative area. Risks, benefits, complications, and alternatives were discussed with the patient. The patient agreed to proceed with the procedure and signed the consent. IV was started. Vital signs were stable. Patient was taken to the procedure room and timeout was completed. The patient was placed in the prone position on procedure table and a pillow was placed under the abdomen to reduce lumbar lordosis. The lumbosacral area was prepped and draped in the usual sterile fashion. Critical pause was taken. Vital signs were closely monitored during the procedure. The fluoroscopic camera was placed in the anteroposterior position to identify the junction of superior articular process and its corresponding injection with its transverse process of Right side L4, L5, S1, which were anesthetized with 1% lidocaine. We used 20-gauge 100-mm curved, sharp radiofrequency cannula with 10-mm active tip for the procedure. The first cannula was guided by fluoroscopy to the S1 superior articular process and its corresponding junction with its ala. The second cannula was guided by fluoroscopy into the L5 superior articular process and its corresponding junction with its transverse process and pedicle. The third cannula was guided by fluoroscopy into the L4 SAP and its corresponding junction with its transverse process and its pedicle. After confirmation of needle tip position on oblique view, lateral view , then each site underwent motor testing at 2 Hz and 0 to 2.5 volts, and there was good motor stimulation in the back and no radicular symptoms or paresthesias. After confirmation of motor testing, each site was infiltrated with 0.5 mL at each level of block solution. Block solution contained 5 mL of 0.5% Ropivacaine preservative free mixed with 40 MG of Kenalog. At this time, each site was ablated using continuous radiofrequency mode at 80 degrees Celsius for 90 seconds at each level. At the end of the procedure, each needle was retracted approximately 1 cm and the skin was infiltrated with 0.5% ropivacaine preservative free 1 ml at each site. Entire procedure repeated on the left side. All the needles removed intact. Skin was cleansed and bandages were applied. Disposition : The patient tolerated the procedure very well. The patient was transferred to the recovery room and remained stable until discharged home. The patient was given detailed discharge instructions for infection, bleeding, and increased pain at the injection site, and was advised to seek immediate medical attention should significant side effects develop. The patient will be scheduled with Pain Clinic within 4 weeks
[2021-06-17 12:59] VITALS: BP 113/73; PULSE 100
--- NOTE | 2021-06-17 14:17 | FL ---
EXAMINATION TYPE: FL guided pain mgmt statistic DATE OF EXAM: 06/17/2021 HISTORY: Fluoroscopy time 10 seconds of fluoroscopy provided. IMPRESSION: 1. Fluoroscopy time.
== END ==
LOC: ORPAIN 11:34
DX: M47.816 Spondylosis without myelopathy or radiculopathy, lumbar region (principal); I10 Essential (primary) hypertension; J44.9 Chronic obstructive pulmonary disease, unspecified; K21.9 Gastro-esophageal reflux disease without esophagitis; Z79.899 Other long term (current) drug therapy; F17.210 Nicotine dependence, cigarettes, uncomplicated; J45.909 Unspecified asthma, uncomplicated; E78.5 Hyperlipidemia, unspecified
CPT/HCPCS: 64635; 64636; J2250; J3301; J3010; J2795

== ENCOUNTER → 2021-07-13 | Outpatient (CLI) | payer OTHER ==
--- NOTE | 2021-07-13 10:35 | P.PN ---
Subjective Progress Note Date: 07/13/21 This is a follow-up visit for this 51-year-old years old female, with a chronic history of severe low back pain ,she is diagnosed with lumbar radiculopathy lumbar spinal stenosis, and lumbar , previously well done lumbar epidural steroid injections , and recentely we have done RFA of the medial branch lumbar area, she continued to have severe low back pain which is increased with any activity, also patient complaining of severe left shoulder pain she had left shoulder surgery before and she is kind of follow-up with orthopedic surgeon for reevaluation, currently she use Zanaflex 4 mg every 8 hours and Motrin 800 mg daily at bedtime when necessary and she used marijuana Review of systems is negative for chest pain, shortness of breath, new onset weakness, numbness/tingling, abdominal pain, malaise, fever, night sweats, chills, homicidal or suicidal ideation, or bowel or bladder incontince - Exam -Constitutiona : Cooperative , not in acute distress . -HEENT : nech : supple , no Lymphadenopathy , normal thyroid size . : eyes : no ptosis , no icterus, no photophobia . - neurologic : Cranial nerve II to XII intact , no focal neurological deffecit . -psychatric : alert , oriented X 3 , appropriate affect , intact judgment and insight . -Lymphatic : no Lymphadenopathy . - musculoskeltal : Passive and active movement of the left shoulder associated with pain decrease range of motion of the left shoulder Lumber spine moter stegnth lower extremities ,thigh and legs 4- 5/5 Right side , 4-5/5 Left side deep tendon reflexes : normal Knee Jerk , normal ankle Jerk lumber facet Loading Test =positive Right , positive Left Range of motion of the lumbar spine Flexion 30 degrees, extension 10 degrees strait leg raising test = positive at 30 degree Fabere test= positive Right , and positive LT . tenderness over the Sacroiliac joint on the Right side MRI of the lumbar spine= L2-3 and L3 4 and L4 5 and L5-S1 foraminal stenosis, and lumbar degenerative disc disease Assessment and plan=1-lumbar radiculopathy. 2-lumbar spinal stenosis. 3-lumbar spondylosis with lumbar facet arthropathy. 4-right sacroiliitis. 5-left shoulder arthralgia She can benefit from Voltaren gel to be applied to the right sacroiliac joint area 3 times daily She could benefit from Lidoderm patch to be applied to the left shoulder area Patient will continue to use Voltaren 75 mg twice a day, and she was discontinue Motrin - PQRS measures = - Patient's medications are documented in the chart. -Tobacco use is positive, and counseling.Given. -Patient's has not received pneumococcal vaccine. -Advanced care planning discussed, patient not eligible. -Opiate contract not signed. -Pain positive and follow-up visit/procedure is scheduled. -Patient's blood pressure measured [ 104/67 ] , and documented in the record ,and patient will follow up with the primary care. -Patient's weight was measured and body mass index [35 ] above the normal limits and counseling was done. and patient instructed to follow-up with the primary care physician. -Patient was not identified as an unhealthy alcohol user
[2021-07-13 10:41] VITALS: BP 107/74; PULSE 97; RESP 18; TEMP 97.8
== END ==
LOC: PNWHC3 09:37
PROVIDERS: ATTEND Specialist
DX: M47.26 Other spondylosis with radiculopathy, lumbar region (principal); M48.061 Spinal stenosis, lumbar region without neurogenic claudication; M46.1 Sacroiliitis, not elsewhere classified; M25.512 Pain in left shoulder; F17.200 Nicotine dependence, unspecified, uncomplicated
CPT/HCPCS: 99211

== ENCOUNTER → 2021-11-07 | Outpatient (CLI) | payer OTHER ==
[2021-11-07 11:02] VITALS: BP 115/65; PULSE 98; RESP 18; TEMP 98.4
--- NOTE | 2021-11-07 11:04 | P.PN ---
Subjective Progress Note Date: 11/07/21 Principal diagnosis: A 51 yr old female with a history of severe and chronic low back pain secondary to lumbar degenerative disc diseases and lumbar spondylosis with facet arthropathy presents today for evaluation status post bilateral RFA of L4-L5, L5-S1. Patient states she experienced greater than 50% pain relief status post procedure. Pain level is currently at 7 out of 10 in intensity, dull, achy in the lower aspects of her lumbar spine and tailbone region with radiation of pain to bilateral Botox and occasional bilateral lower extremities. Denies radiation of pain to the groin or in her thighs. Pain is provoked by lifting or standing for periods of 30 minutes or more. Pain is alleviated with medications (Zanaflex), topical, injections, ice, physical therapy in past, home stretching regimen, use of a walker for ambulation and bending. Interventional pain procedures completed include bilateral RSA L4-L5, L5-S1 in Oct, 2021 Patient is currently on Zanaflex prn Patient denies any side effects of the medication(s), denies excessive drowsiness or sleepiness, denies suicidal ideation and reports that the current pain medication is helping to control the pain and improve activities of daily living. Patient denies any motor or sensory deficits. Patient denies any fever or night sweats, denies any change in the bowel movements or urination. Physical Examination: -Constitutional: Cooperative. Not in acute distress . -HEENT: Neck is supple. No lymphadenopathy. No thyromegaly. Normal thyroid size. Eyes: No ptosis , no icterus, no photophobia. ENT: No auditory deficits. Normal oropharynx. No Thrush. - Respiratory: Chest clear to auscultations bilaterally. No wheezing. No rhonchi. - Cardiovascular: Regular rate and rhythm. S1 / S2 , no S3 , no S4. - Gastrointestinal: Abdomen soft no tenderness. Bowel sounds positive in all four quadrants. No organomegaly. - Genitourinary: Deferred. - Neurologic: Cranial nerve II to XII intact. No focal neurological deficits. - Psychatric: Alert & oriented x 3. Matching mood & appropriate affect. Judgment and insight intact. - Lymphatic: No Lymphadenopathy. - Musculoskeletal: Cervical spine: Muscle bulk/ tone/ strength in the bilateral upper extremities normal. Facet loading test cervical area positive. Lumbar spine: Motor bulk/ tone/ strength lower extremities , thigh and legs : 5/5 Deep tendon reflexes : Normal Knee Jerk. Normal Ankle Jerk . Vertebral body tenderness to palpation over Lumbar Facet Loading Test positive Straight Leg Raise: positive at 30 degrees right side/ left side Gaenslen's Test positive Sacral spine : Severe tenderness over the Sacroiliac joint: right side / left side Range of motion: Flexion of the lumbar spine <60 degrees Range of motion: Extension of the lumbar spine <20 degrees Gaenslen's Test positive Ramon test: positive right side / left side Assessment and plan: Chronic low back pain secondary to lumbar degenerative disc disease , lumbar spondylosis with facet arthropathy without myelopathy Recommendation of bilateral SI joint injection. May need a series of injections to obtain optimal pain relief. Risks, benefits of procedure discussed and patient verbalized understanding. Denies anticoagulants use. Denies medical history of diabetes. All patient questions answered MAPS reviewed and it was appropriate. I have spent 31 minutes on patient care today. Dr Campoverde was available by phone for the evaluation of this patient. The time was used to review the medical records including relevant urine studies and Prescription history (MAPs), review of the available imaging, evaluation and examination of the patient, coordination of care with the medical staff and if applicable referring physicians, as well as creation of the medical record PQRS Measure Charge Sheet Mode of Arrival: Ambulatory PQRS Narrative: Smoking Status Current every day smoker Blood Pressure 115/65 Pain Intensity [Lower Back] 7 Scale Used Numeric (1 - 10) Hx Alcohol Use (MH) Yes: occ Home Medications: Ambulatory Orders DULoxetine HCL [Cymbalta] 60 mg PO QAM 02/01/16 Albuterol Inhaler (Mhu) [Ventolin Hfa Inhaler (Mhu)] 2 puff INHALATION Q6H PRN 07/17/18 Atorvastatin [Lipitor] 20 mg PO HS 07/17/18 Diclofenac Sodium [Voltaren] 75 mg PO BID 07/17/18 Montelukast [Singulair] 10 mg PO HS 07/17/18 Omeprazole [PriLOSEC] 20 mg PO BID 06/27/19 lisinopriL [Zestril] 5 mg PO BID 06/27/19 Multivit-Min/FA/Lycopen/Lutein [Centrum Silver Tablet] 1 each PO DAILY 01/21/20 Fluticasone/Salmeterol [Advair 250-50 Diskus] 1 each IH BID 07/28/20 Ipratropium [place] [Ipratropium [place] 0.03%] 1 sprays EA NOSTRIL DAILY 10/12/20 Cholecalciferol [Vitamin D3 (25 Mcg = 1000 Iu)] 25 mcg PO DAILY 02/07/21 tiZANidine HCL [Zanaflex] 4 mg PO Q8HR PRN 30 Days #90 tab 02/09/21 Diclofenac Sodium Gel [Voltaren Gel] 2 gm TOPICAL QID #100 gm 07/13/21 Lidocaine 5% Patch [Lidoderm] 1 patch TOPICAL DAILY 30 Days #30 patch 07/13/21
== END ==
LOC: PNWHC3 10:42
PROVIDERS: ATTEND Specialist
DX: G89.29 Other chronic pain (principal); M51.36 Other intervertebral disc degeneration, lumbar region; M47.816 Spondylosis without myelopathy or radiculopathy, lumbar region; F17.200 Nicotine dependence, unspecified, uncomplicated
CPT/HCPCS: 99211

== ENCOUNTER 2021-11-29 11:46 | Day surgery (SDC) | payer OTHER ==
[2021-11-29 12:16] VITALS: RESP 16; TEMP 98
[2021-11-29] MEDS ORDERED: LACTATED RINGERS 1,000 ML IV ONE (12:17)
[2021-11-29] MEDS ORDERED: MIDAZOLAM 2 MG/2 ML VIAL ONE (12:28)
[2021-11-29] MEDS ORDERED: methylPREDNISolone ACETATE 40 MG/ML 1 ML VIAL ONE (12:28)
[2021-11-29] MEDS ORDERED: ROPIVACAINE 5MG/ML 20ML VIAL ONE (12:28)
[2021-11-29] MEDS ORDERED: fentaNYL (PF) 50 MCG/ML 2 ML AMP ONE (12:28)
[2021-11-29] MEDS ORDERED: LIDOCAINE 1% (10MG/ML) FOR IV START INTRADERMA PRN (12:55)
[2021-11-29] MEDS ORDERED: LACTATED RINGERS 1,000 ML IV SCH (12:55)
--- NOTE | 2021-11-29 12:55 | P.PCN ---
Date of Procedure: 11/29/21 Procedure(s) Performed: Procedure= bilateral sacroiliac joints steroid injection under fluoroscopy guidance (fluoroscopy image stored on file in the radiology Department ) Preoperative diagnosis= 1-sacroiliitis 2-lumbar degenerative disc disease 3- lumbar facet arthropathy Postoperative diagnosis=Same as preop Diagnosis . Complication = none Condition= stable Anesthesia= moderate sedation with intravenous Versed 2 mg , and fentanyl 100 micrograms . Indication for the procedure= patient complaining of low back pain , examination was positive for severe tenderness over the sacroiliac joints bilaterally and patient diagnosed with sacroiliitis, for this reason , she was good candidate for sacroiliac joint steroid injection. Description of the procedure= procedure risk and benefits discussed with the patient, including but not limited, risk of infection and bleeding, and ALLERGIC reaction to the medication and not complete pain relief and patient agreed with the preceding patient taken to the operating room, placed in prone position or standard monitors applied to the patient then after induction of anesthesia back prepped with chlorhexidine 3 times , Then under strict sterile technique, first I did the right sacroiliac joint the which was identified under fluoroscopy guidance been local infiltration of the skin and subcu interstitial with lidocaine 1% then 22-gauge Quincke Needle advanced slowly under fluoroscopy and placed in the right sacroiliac joint needle placement confirmed with AP and oblique and lateral view and after appropriate needle placement confirmed and after negative aspiration, or heme , then Ropivacaine 0.5% 4 mL, and 40 mg of Depo-Medrol mixed together and injected in the right sacroiliac joint after negative aspiration patient tolerated the procedure well without any complication. Then the left sacroiliac joint steroid injection done under strict sterile technique local infiltration of the skin and subcu interstitial at the location of the left sacroiliac joint then a 22-gauge Quincke Needle advanced slowly under fluoroscopy time placed in the left sacroiliac joint, needle placement confirmed with AP and oblique and lateral view then after appropriate needle placement confirmed and after negative aspiration 0.5% Ropivacaine 4 mL and 40 mg of Depo-Medrol injected in the left sacroiliac joint after negative aspiration patient tolerated the procedure well that any complications and she will follow up in clinic 3 weeks
[2021-11-29] MEDS ORDERED: IV FLUID CONTINUATION 1,000 ML IV ONE (12:58)
[2021-11-29 13:12] VITALS: BP 112/78; PULSE 91
--- NOTE | 2021-11-29 23:00 | FL ---
EXAMINATION TYPE: FL guided pain mgmt statistic DATE OF EXAM: 11/29/2021 CLINICAL HISTORY: Pain management TECHNIQUE: Fluoroscopic-guided bilateral sacroiliac joint injection FINDINGS: Fluoroscopic guidance was provided during the procedure. A total of 7 seconds of fluorosco pic time was utilized during the procedure and 2 spot images were acquired. IMPRESSION: As Above.
== END 2021-11-29 13:27 | disposition home or self-care (01) ==
LOC: ORPAIN 11:46
PROVIDERS: ATTEND Specialist
DX: M46.1 Sacroiliitis, not elsewhere classified (principal)
CPT/HCPCS: G0260; J2250; J1030; J3010; J2795; 99152

== ENCOUNTER → 2021-12-26 | Outpatient (CLI) | payer OTHER ==
--- NOTE | 2021-12-26 12:54 | P.PN ---
Subjective Progress Note Date: 12/26/21 Principal diagnosis: A 51 yr old female with a history of severe and chronic low back pain secondary to lumbar degenerative disc diseases and lumbar spondylosis with facet arthropathy sacroiliitis presents today for evaluation status post BL SI joint injection #1. She states she experienced 70% pain relief status post procedure. Pain level is currently at 4 out of 10 in intensity, intermittent, dull, achy, pressure type sensation in the lower tailbone aspects of her lumbar spine which is exacerbated with standing for periods of 15 minutes or more. Admits that pain radiates to her left inner thigh. Pain is alleviated with medications, topicals, injections, ice, physical therapy months ago, chiropractic treatments last in November 2021, home stretching regimen, bending and laying supine with legs elevated. Interventional pain procedures completed include LESI L5-S1, BL RFA L3-L5, BL SI joint injection #1 Patient is currently on Zanaflex Patient denies any side effects of the medication(s), denies excessive drowsiness or sleepiness, denies suicidal ideation and reports that the current pain medication is helping to control the pain and improve activities of daily living. Patient denies any motor or sensory deficits. Patient denies any fever or night sweats, denies any change in the bowel movements or urination. Physical Examination: -Constitutional: Cooperative. Not in acute distress . -HEENT: Neck is supple. No lymphadenopathy. No thyromegaly. Normal thyroid size. Eyes: No ptosis , no icterus, no photophobia. ENT: No auditory deficits. Normal oropharynx. No Thrush. - Respiratory: Chest clear to auscultations bilaterally. No wheezing. No rhonchi. - Cardiovascular: Regular rate and rhythm. S1 / S2 , no S3 , no S4. - Gastrointestinal: Abdomen soft no tenderness. Bowel sounds positive in all four quadrants. No organomegaly. - Genitourinary: Deferred. - Neurologic: Cranial nerve II to XII intact. No focal neurological deficits. - Psychatric: Alert & oriented x 3. Matching mood & appropriate affect. Judgment and insight intact. - Lymphatic: No Lymphadenopathy. - Musculoskeletal: Cervical spine: Muscle bulk/ tone/ strength in the bilateral upper extremities normal. Facet loading test cervical area positive. Lumbar spine: Motor bulk/ tone/ strength lower extremities , thigh and legs : 5/5 Deep tendon reflexes : Normal Knee Jerk. Normal Ankle Jerk . Vertebral body tenderness to palpation over Lumbar Facet Loading Test positive Straight Leg Raise: positive at 30 degrees right side/ left side Gaenslen's Test positive Sacral spine : Severe tenderness over the Sacroiliac joint: right side / left side Range of motion: Flexion of the lumbar spine <60 degrees Range of motion: Extension of the lumbar spine <20 degrees Gaenslen's Test positive Ramon test: positive right side / left side Assessment and plan: Chronic low back pain secondary to lumbar degenerative disc disease , lumbar spondylosis with facet arthropathy without myelopathy Recommendation of BL SI joint injection #2. May need a series of injections, every 3 months if needed, for optimal pain relief. Risks, benefits of procedure discussed and patient verbalized understanding. Denies anticoagulant use or medical history of diabetes. All patient questions answered MAPS reviewed and it was appropriate. I have spent 31 minutes on patient care today. Dr Campoverde was available by phone for the evaluation of this patient. The time was used to review the medical records including relevant urine studies and Prescription history (MAPs), review of the available imaging, evaluation and examination of the patient, coordination of care with the medical staff and if applicable referring physicians, as well as creation of the medical record PQRS Measure Charge Sheet PQRS Narrative: Smoking Status Current every day smoker Hx Alcohol Use (MH) Yes: occ Home Medications: Ambulatory Orders DULoxetine HCL [Cymbalta] 60 mg PO QAM 02/01/16 Albuterol Inhaler (Mhu) [Ventolin Hfa Inhaler (Mhu)] 2 puff INHALATION Q6H PRN 07/17/18 Atorvastatin [Lipitor] 20 mg PO HS 07/17/18 Diclofenac Sodium [Voltaren] 75 mg PO BID 07/17/18 Montelukast [Singulair] 10 mg PO HS 07/17/18 Omeprazole [PriLOSEC] 20 mg PO BID 06/27/19 lisinopriL [Zestril] 5 mg PO BID 06/27/19 Multivit-Min/FA/Lycopen/Lutein [Centrum Silver Tablet] 1 each PO DAILY 01/21/20 Fluticasone/Salmeterol [Advair 250-50 Diskus] 1 each IH BID 07/28/20 Ipratropium [place] [Ipratropium [place] 0.03%] 1 sprays EA NOSTRIL DAILY 10/12/20 Cholecalciferol [Vitamin D3 (25 Mcg = 1000 Iu)] 25 mcg PO DAILY 02/07/21 Diclofenac Sodium Gel [Voltaren Gel] 2 gm TOPICAL QID #100 gm 07/13/21 Lidocaine 5% Patch [Lidoderm] 1 patch TOPICAL DAILY 30 Days #30 patch 07/13/21 tiZANidine HCL [Zanaflex] 4 mg PO Q8HR PRN 30 Days #90 tab 12/01/21
[2021-12-26 13:03] VITALS: BP 123/77; PULSE 79; RESP 18; TEMP 98
== END ==
LOC: PNWHC3 11:58
PROVIDERS: ATTEND Specialist
DX: M51.36 Other intervertebral disc degeneration, lumbar region (principal); M47.816 Spondylosis without myelopathy or radiculopathy, lumbar region; M46.1 Sacroiliitis, not elsewhere classified; G89.29 Other chronic pain; F17.200 Nicotine dependence, unspecified, uncomplicated
CPT/HCPCS: 99211

== ENCOUNTER → 2022-01-17 | Outpatient (CLI) | payer OTHER ==
[2022-01-17 14:56] VITALS: BP 130/80; PULSE 97; RESP 17; TEMP 97.9
--- NOTE | 2022-01-17 15:49 | P.HPOB ---
History of Present Illness H&P Date: 01/17/22 Chief Complaint: The patient is here for her routine gynecologic exam. This is a 51-year-old G0 with an LMP of 2014. The patient is without gynecologic complaints and denies any postmenopausal bleeding. Review of Systems She has lost about 43 pounds over the past 3 years with diet change. The weight loss has been intentional. She denies respiratory, cardiac, or G.I. problems. Past Medical History Past Medical History: Asthma, GERD/Reflux, Hyperlipidemia, Hypertension, Musculoskeletal Disorder, Osteoarthritis (OA) Additional Past Medical History / Comment(s): Chronic back pain and this causes her to use a walker. 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 History of Any Multi-Drug Resistant Organisms: None Reported Past Surgical History: Appendectomy, Breast Surgery, Orthopedic Surgery Additional Past Surgical History / Comment(s): ARTHROSCOPY LEFT SHOULDER, finger surgery, cyst removed from left index finger, left knee surgery, one ovary removed, breast biopsy, left shoulder surgery, PAIN CLINIC BACK INJECTIONS. Past Anesthesia/Blood Transfusion Reactions: No Reported Reaction Past Psychological History: Depression Smoking Status: Current every day smoker (One pack per day.) Past Alcohol Use History: Occasional (About 5 drinks per month. Previously drank more.) Additional Past Alcohol Use History / Comment(s): STARTED SMOKING AT AGE 15. Smoked 1/2-1 PPD since teens, on/off. Now smokes 5-6 cigarettes daily. Past Drug Use History: Marijuana (Not every day.) Additional Drug Use History / Comment(s): Regular marijuana use. KNOWS TO REFRAIN FROM USE FOR AT LEAST 24 HOURS PRIOR TO PROCEDURE. Additional History: The patient is homosexual and is single. She is not seeing anybody at this time and is disabled. - Past Family History Mother Family Medical History: Cancer, Coronary Artery Disease (CAD) Additional Family Medical History / Comment(s): Grandparents had an PA. Medications and Allergies Home Medications Medication Instructions Recorded Confirmed Type DULoxetine HCL [Cymbalta] 60 mg PO QAM 01/31/01/17/22 History Albuterol Inhaler (Mhu) [Ventolin 2 puff INHALATION Q6H PRN 07/17/18 01/17/22 History Hfa Inhaler (Mhu)] Atorvastatin [Lipitor] 20 mg PO HS 07/17/18 01/17/22 History Diclofenac Sodium [Voltaren] 75 mg PO BID 07/17/18 01/17/22 History Montelukast [Singulair] 10 mg PO HS 07/17/18 01/17/22 History Omeprazole [PriLOSEC] 20 mg PO BID 06/27/19 01/17/22 History lisinopriL [Zestril] 5 mg PO BID 06/27/19 01/17/22 History Multivit-Min/FA/Lycopen/Lutein 1 each PO DAILY 01/21/20 01/17/22 History [Centrum Silver Tablet] Fluticasone/Salmeterol [Advair 1 each IH BID 07/28/20 01/17/22 History 250-50 Diskus] Ipratropium [place] [Ipratropium 1 sprays EA NOSTRIL DAILY 10/12/20 01/17/22 History [place] 0.03%] Cholecalciferol [Vitamin D3 (25 25 mcg PO DAILY 02/07/21 01/17/22 History Mcg = 1000 Iu)] Diclofenac Sodium Gel [Voltaren 2 gm TOPICAL QID #100 gm 07/13/21 01/17/22 Rx Gel] tiZANidine HCL [Zanaflex] 4 mg PO Q8HR PRN 30 Days #90 tab 12/01/21 01/17/22 Rx Allergies Allergy/AdvReac Type Severity Reaction Status Date / Time No Known Allergies Allergy Verified 01/17/22 14:38 Exam Vital Signs Temp Pulse Resp BP Pulse Ox 01/17/22 14:41 97.9 F 97 17 130/80 97 Intake and Output 01/17/22 01/17/22 01/17/22 06:59 14:59 22:59 Other: Weight 82.554 kg Height 5 feet 2 inches, weight 182 pounds, BMI 33.3. This is a well-developed well-nourished white female who is alert and oriented times 3 in mild distress with movement secondary to back pain. HEENT: Within normal limits. NECK: Supple without mass or thyromegaly. CHEST AND LUNGS: Clear to auscultation. HEART: Regular rate and rhythm. BREASTS: Are without mass or discharge. AXILLARY EXAM: Negative for adenopathy. BACK: Negative for CVA tenderness. ABDOMEN: Soft, nontender, without palpable masses. PELVIC EXAM: Normal external genitalia with mild atrophy. Cervix and vagina appear normal with mild atrophy. There is no unusual discharge. There is no evidence of prolapse. The uterus is midposition, nongravid size and nontender. There are no palpable adnexal masses or tenderness. RECTAL EXAM: Rectovaginal exam is negative for mass or tenderness and is negative for occult blood. EXTREMITIES: Nontender. IMPRESSION: 1. 51-year-old menopausal female with normal gynecologic exam. PLAN: 1. Pap smear cotest was performed. 2. Self breast awareness was discussed with the patient. We have also discussed symptoms associated with inflammatory breast cancer. 3. Screening mammogram was done on 03/01/2021 and this was benign. She will repeat this after 1 year. The order slip was given to the patient for this. 4. Osteoporosis prevention was discussed. I have stressed the importance of adequate calcium, vitamin D and regular exercise. Recommended amounts of milana cium and vitamin D were also discussed. 5. She has not had a Covid vaccination, but did have Covid. She understands that a Covid vaccination is recommended by the CDC and would likely increase her protection to the Covid virus. She will consider this. 6. She was advised to return in one year for her annual well woman exam.
== END ==
LOC: WWCWWP 14:28
PROVIDERS: ATTEND Obstetrics & Gynecology
DX: Z01.419 Encounter for gynecological examination (general) (routine) without abnormal findings (principal); E78.5 Hyperlipidemia, unspecified; J45.909 Unspecified asthma, uncomplicated; I10 Essential (primary) hypertension; M19.90 Unspecified osteoarthritis, unspecified site; F17.210 Nicotine dependence, cigarettes, uncomplicated; F32.A Depression, unspecified; Z79.51 Long term (current) use of inhaled steroids; K21.9 Gastro-esophageal reflux disease without esophagitis; Z78.0 Asymptomatic menopausal state; Z79.899 Other long term (current) drug therapy

== ENCOUNTER 2022-02-07 11:14 | Day surgery (SDC) | payer OTHER ==
[2022-02-03 13:11] VITALS: BMI 34.2
[~2022-02-07 11:14] MED LIST changes: -IV FLUID CONTINUATION 1,000 ML IV ONE; +LIDOCAINE 1% (10MG/ML) FOR IV START INTRADERMA PRN; -MIDAZOLAM 2 MG/2 ML VIAL ONE; -ROPIVACAINE 5MG/ML 20ML VIAL ONE; -TRIAMCINOLONE ACETONIDE 40 MG/ML 1 ML VIAL ONE; -fentaNYL (PF) 50 MCG/ML 2 ML AMP ONE
[2022-02-07 11:44] VITALS: TEMP 98.2
[2022-02-07] MEDS ORDERED: methylPREDNISolone ACETATE 80 MG/ML 1 ML VIAL ONE (12:49)
[2022-02-07] MEDS ORDERED: MIDAZOLAM 2 MG/2 ML VIAL ONE (12:49)
[2022-02-07] MEDS ORDERED: fentaNYL (PF) 50 MCG/ML 2 ML AMP ONE (12:49)
[2022-02-07] MEDS ORDERED: ROPIVACAINE 5MG/ML 20ML VIAL ONE (12:49)
--- NOTE | 2022-02-07 13:05 | P.PCN ---
Date of Procedure: 02/07/22 Procedure(s) Performed: Procedure= bilateral sacroiliac joints steroid injection under fluoroscopy guidance (fluoroscopy image stored on file in the radiology Department ) Preoperative diagnosis= 1-sacroiliitis 2-lumbar degenerative disc disease 3- lumbar facet arthropathy Postoperative diagnosis=Same as preop Diagnosis . Complication = none Condition= stable Anesthesia= moderate sedation with intravenous Versed 2 mg , and fentanyl 100 micrograms . Indication for the procedure= patient complaining of low back pain , examination was positive for severe tenderness over the sacroiliac joints bilaterally and patient diagnosed with sacroiliitis, for this reason , she was good candidate for sacroiliac joint steroid injection. Description of the procedure= procedure risk and benefits discussed with the patient, including but not limited, risk of infection and bleeding, and ALLERGIC reaction to the medication and not complete pain relief and patient agreed with the preceding patient taken to the operating room, placed in prone position or standard monitors applied to the patient then after induction of anesthesia back prepped with chlorhexidine 3 times , Then under strict sterile technique, first I did the right sacroiliac joint the which was identified under fluoroscopy guidance been local infiltration of the skin and subcu interstitial with lidocaine 1% then 22-gauge Quincke Needle advanced slowly under fluoroscopy and placed in the right sacroiliac joint needle placement confirmed with AP and oblique and lateral view and after appropriate needle placement confirmed and after negative aspiration, or heme , then Ropivacaine 0.5% 4 mL, and 40 mg of Depo-Medrol mixed together and injected in the right sacroiliac joint after negative aspiration patient tolerated the procedure well without any complication. Then the left sacroiliac joint steroid injection done under strict sterile technique local infiltration of the skin and subcu interstitial at the location of the left sacroiliac joint then a 22-gauge Quincke Needle advanced slowly under fluoroscopy time placed in the left sacroiliac joint, needle placement confirmed with AP and oblique and lateral view then after appropriate needle placement confirmed and after negative aspiration 0.5% Ropivacaine 4 mL and 40 mg of Depo-Medrol injected in the left sacroiliac joint after negative aspiration patient tolerated the procedure well that any complications and she will follow up in clinic 3 weeks
[2022-02-07] MEDS ORDERED: IV FLUID CONTINUATION 800 ML IV ONE (13:12)
[2022-02-07 13:31] VITALS: BP 130/85; PULSE 89; RESP 14
--- NOTE | 2022-02-08 00:59 | FL ---
EXAMINATION TYPE: FL guided pain mgmt statistic DATE OF EXAM: 02/07/2022 CLINICAL HISTORY: Bilateral sacroiliac joint injection TECHNIQUE: Fluoroscopic guided procedure. FINDINGS: Fluoroscopic guidance was provided during the procedure. A total of 4 seconds of fluorosco pic time was utilized during the procedure and 3 spot images were acquired. IMPRESSION: As Above.
== END 2022-02-07 13:42 | disposition home or self-care (01) ==
LOC: ORPAIN 11:14
PROVIDERS: ATTEND Specialist
DX: M46.1 Sacroiliitis, not elsewhere classified (principal); M51.36 Other intervertebral disc degeneration, lumbar region
CPT/HCPCS: J2250; J1040; J3010; J2795; G0260; 99152

== ENCOUNTER → 2022-02-23 | Outpatient (CLI) | payer OTHER ==
[2022-02-23 10:57] VITALS: BP 124/62; PULSE 70; RESP 18; TEMP 97.8
--- NOTE | 2022-02-23 11:39 | P.PAINPG ---
PQRS Measure Charge Sheet Comment: A 51 yr old female with a history of severe and chronic low back pain x years secondary to lumbar degenerative disc diseases and lumbar spondylosis with facet arthropathy presents today for evaluation s/p BL SI joint injections. Pt states she experienced 10% pain relief s/p procedure. She feels her pain is "worse." Pain level is currently at 4/10 in intensity, constant, in the L lower back, dull/ achy in character with intermittent sharp/ shooting towards LLE. Pain is provoked by standing/walking for periods of 20 min or more. Pain is alleviated with use of a walker for ambulation, PT in May 2021, integrated massage with PT, home exercise regimen as tolerated, heating pad use, medications, repositioning and rest. Interventional pain procedures completed include BL SI injection. Patient is currently on Zanaflex, Voltaren gel Patient denies any side effects of the medication(s), denies excessive drowsiness or sleepiness, denies suicidal ideation and reports that the current pain medication is helping to control the pain and improve activities of daily living. Patient denies any motor or sensory deficits. Patient denies any fever or night sweats, denies any change in the bowel movements or urination. Physical Examination: -Constitutional: Cooperative. Not in acute distress . - Neurologic: Cranial nerve II to XII intact. No focal neurological deficits. - Psychatric: Alert & oriented x 3. Matching mood & appropriate affect. Judgment and insight intact. - Musculoskeletal: Cervical spine: Muscle bulk/ tone/ strength in the bilateral upper extremities normal Vertebral body tenderness to palpation over Spurling test positive Distraction test positive Facet loading test positive Thoracic spine Muscle bulk / tone/ strength in the bilateral paraspinal muscles normal Vertebral body tender to palpation over Facet loading test positive Lumbar spine: Motor bulk/ tone/ strength lower extremities , thigh and legs : 5/5 Deep tendon reflexes : Normal Knee Jerk. Normal Ankle Jerk . Vertebral body tenderness to palpation over Lumbar Facet Loading Test positive L4-L5, L5-S1, L>R Straight Leg Raise: positive at 30 degrees right side/ left side Gaenslen's Test positive Sacral spine : Severe tenderness over the Sacroiliac joint: right side / left side Range of motion: Flexion of the lumbar spine <60 degrees Range of motion: Extension of the lumbar spine <20 degrees Gaenslen's Test positive Quinten's Test positive Ramon test: positive right side / left side Thigh Thrust Test Sacral Thrust Test Assessment and plan: Chronic low back pain secondary to lumbar degenerative disc disease , lumbar spondylosis with facet arthropathy without myelopathy Recommendation of BL RFA L4-L5, L5-S1. Risks, benefits of procedure discussed and pt verbalized understanding. Denies anticoagulant use or medical history of diabetes. All patient questions answered MAPS reviewed and it was appropriate. I have spent less than 30 minutes on patient care today. Dr Campoverde was available by phone for the evaluation of this patient. The time was used to review the medical records including relevant urine studies and Prescription history (MAPs), review of the available imaging, evaluation and examination of the patient, coordination of care with the medical staff and if applicable refer ring physicians, as well as creation of the medical record - Pain Location Left Lower Back Non-Pharmacological Interventions: Heat, Massage, Physical Therapy, Position/Reposition Pharmacological Interventions: Medication, Topical Medication PQRS Narrative: Smoking Status Current every day smoker Hx Alcohol Use (MH) Yes: occ Home Medications: Ambulatory Orders DULoxetine HCL [Cymbalta] 60 mg PO QAM 02/01/16 Albuterol Inhaler [Ventolin Hfa Inhaler] 2 puff INHALATION Q6H PRN 07/17/18 Atorvastatin [Lipitor] 20 mg PO HS 07/17/18 Diclofenac Sodium [Voltaren] 75 mg PO BID 07/17/18 Montelukast [Singulair] 10 mg PO HS 07/17/18 Omeprazole [PriLOSEC] 20 mg PO BID 06/27/19 lisinopriL [Zestril] 5 mg PO BID 06/27/19 Multivit-Min/FA/Lycopen/Lutein [Centrum Silver Tablet] 1 each PO DAILY 01/21/20 Fluticasone Propion/Salmeterol [Advair 250-50 Diskus] 1 each IH BID 07/28/20 Ipratropium [place] [Ipratropium [place] 0.03%] 1 sprays EA NOSTRIL DAILY PRN 10/12/20 Cholecalciferol [Vitamin D3 (25 Mcg = 1000 Iu)] 25 mcg PO DAILY 02/07/21 Diclofenac Sodium Gel [Voltaren Gel] 2 gm TOPICAL QID #100 gm 07/13/21 tiZANidine HCL [Zanaflex] 4 mg PO Q8HR PRN 30 Days #90 tab 12/01/21 Controlled Substance Measures - Controlled Substance Measures Is patient prescribed a controlled substance at discharge?: No
== END ==
LOC: PNWHC3 08:49
PROVIDERS: ATTEND Specialist
DX: M51.36 Other intervertebral disc degeneration, lumbar region (principal); M47.816 Spondylosis without myelopathy or radiculopathy, lumbar region; G89.29 Other chronic pain; F17.200 Nicotine dependence, unspecified, uncomplicated
CPT/HCPCS: 99211

== ENCOUNTER 2022-03-04 02:25 | Emergency (ER) | payer OTHER ==
[2022-03-04 02:45] VITALS: BP 92/63; PULSE 98; RESP 19; TEMP 98.5
[2022-03-04] MEDS ORDERED: SULFAMETHOX-TMP 800-160MG 1 EACH TAB PO STA (04:39)
[2022-03-04] MEDS ORDERED: LIDOCAINE 1% INJ 10MG/ML (10 ML MDV) SQ STA (04:39)
--- NOTE | 2022-03-04 05:32 | ED ---
Skin/Abscess/FB HPI - General Chief complaint: Skin/Abscess/Foreign Body Stated complaint: boil under rt arm Time Seen by Provider: 03/04/22 04:28 Source: patient Mode of arrival: ambulatory - History of Present Illness Initial comments: This patient is a 51-year-old woman who presents with complaint of right axillary abscess that is increasing in size and tenderness. The patient states that she is using a topical and oral antibiotic that she was given by her primary physician when she saw him this week. The abscess has been present since she noticed a small pimple on Sunday and it has grown in size. She has not noted fever or chills. No palpitations, chest pain, dyspnea or other systemic symptoms. MD complaint: abscess/boil -: days(s) Tetanus Up to Date: yes Location: RUE Severity: severe Quality: burning, aching Consistency: constant Improves with: none Worsens with: palpation Context: none Associated symptoms: denies other symptoms Treatments Prior to Arrival: OTC topical medication, antibiotic - Related Data Home Medications Medication Instructions Recorded Confirmed DULoxetine HCL [Cymbalta] 60 mg PO QAM 02/01/16 02/23/22 Albuterol Inhaler [Ventolin Hfa 2 puff INHALATION Q6H PRN 07/17/18 02/23/22 Inhaler] Atorvastatin [Lipitor] 20 mg PO HS 07/17/18 02/23/22 Diclofenac Sodium [Voltaren] 75 mg PO BID 07/17/18 02/23/22 Montelukast [Singulair] 10 mg PO HS 07/17/18 02/23/22 Omeprazole [PriLOSEC] 20 mg PO BID 06/27/19 02/23/22 lisinopriL [Zestril] 5 mg PO BID 06/27/19 02/23/22 Multivit-Min/FA/Lycopen/Lutein 1 each PO DAILY 01/21/20 02/23/22 [Centrum Silver Tablet] Fluticasone Propion/Salmeterol 1 each IH BID 07/28/20 02/23/22 [Advair 250-50 Diskus] Ipratropium [place] [Ipratropium 1 sprays EA NOSTRIL DAILY PRN 10/12/20 02/23/22 [place] 0.03%] Cholecalciferol [Vitamin D3 (25 25 mcg PO DAILY 02/07/21 02/23/22 Mcg = 1000 Iu)] Previous Rx's Medication Instructions Recorded Diclofenac Sodium Gel [Voltaren 2 gm TOPICAL QID #100 gm 07/13/21 Gel] tiZANidine HCL [Zanaflex] 4 mg PO Q8HR PRN 30 Days #90 tab 12/01/21 Allergies Allergy/AdvReac Type Severity Reaction Status Date / Time No Known Allergies Allergy Verified 03/04/22 02:45 Review of Systems ROS Statement: Those systems with pertinent positive or pertinent negative responses have been documented in the HPI. ROS Other: All systems not noted in ROS Statement are negative. Constitutional: Denies: fever, chills Respiratory: Denies: cough, dyspnea Cardiovascular: Denies: chest pain, palpitations Gastrointestinal: Denies: abdominal pain, nausea, vomiting Skin: Denies: rash Past Medical History Past Medical History: Asthma, GERD/Reflux, Hyperlipidemia, Hypertension, Musculoskeletal Disorder, Osteoarthritis (OA) Additional Past Medical History / Comment(s): Chronic back pain and this causes her to use a walker. 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 History of Any Multi-Drug Resistant Organisms: None Reported Past Surgical History: Appendectomy, Breast Surgery, Orthopedic Surgery Additional Past Surgical History / Comment(s): ARTHROSCOPY LEFT SHOULDER, finger surgery, cyst removed from left index finger, left knee surgery, one ovary removed, breast biopsy, left shoulder surgery, PAIN CLINIC BACK INJECTIONS. Past Anesthesia/Blood Transfusion Reactions: No Reported Reaction Past Psychological History: Depression Smoking Status: Current every day smoker Past Alcohol Use History: None Reported Past Drug Use History: None Reported - Past Family History Mother Family Medical History: Cancer, Coronary Artery Disease (CAD) Additional Family Medical History / Comment(s): Grandparents had an ID. General Exam General appearance: alert, in no apparent distress Respiratory exam: Present: normal lung sounds bilaterally. Absent: respiratory distress, wheezes, rales, rhonchi, stridor Cardiovascular Exam: Present: regular rate, normal rhythm, normal heart sounds. Absent: systolic murmur, diastolic murmur, rubs, gallop Skin exam: Present: warm, dry, other (Approximately 5 cm area of induration that is overlying fluctuant area. Erythema, warmth. Located in right axilla) Course Vital Signs 03/04/22 02:42 Temperature 98.5 F Pulse Rate 98 Respiratory 19 Rate Blood Pressure 92/63 O2 Sat by Pulse 99 Oximetry Procedures - Incision & Drainage Consent Obtained: verbal consent Site: other (Right axilla) Anesthetic Used: lidocaine 1% I&D Cleaning Method: Alcohol Wipe Sterile Field Used?: Yes Scalpel Used: #11 Needle Aspiration Performed?: No Irrigation Performed?: Yes I&D Drainage Obtained: Pus, Blood Packing: Iodoform Culture Obtained?: No Patient Tolerated Procedure: well, no complications Disposition Clinical Impression: Abscess Disposition: HOME SELF-CARE Condition: Good Instructions (If sedation given, give patient instructions): Abscess Incision and Drainage (DC) Is patient prescribed a controlled substance at d/c from ED?: No Referrals: Hansel Luna MD [Primary Care Provider] - 1-2 days
== END 2022-03-04 05:48 | disposition home or self-care (01) ==
LOC: EC 02:25
DX: L02.411 Cutaneous abscess of right axilla (principal); J45.909 Unspecified asthma, uncomplicated; K21.9 Gastro-esophageal reflux disease without esophagitis; E78.5 Hyperlipidemia, unspecified; I10 Essential (primary) hypertension; F17.200 Nicotine dependence, unspecified, uncomplicated; Z79.51 Long term (current) use of inhaled steroids; Z79.899 Other long term (current) drug therapy
CPT/HCPCS: 99282; 10060; J2001

== ENCOUNTER → 2022-04-11 | Outpatient (CLI) | payer OTHER ==
--- NOTE | 2022-04-12 07:56 | MM ---
Reason for Exam: Screening (asymptomatic). Last mammogram was performed 1 year(s) and 1 month(s) ago. Patient History: Menarche at age 12. Patient has no children. Postmenopausal. Hormonal Contraceptives for 23 years from age 20 until age 43. 07/20/2015, Benign Core Biopsy on the right side. Mother had breast cancer. Risk Values: Jessica 5 year model risk: 2.3%. NCI Lifetime model risk: 19.3%. Prior Study Comparison: 02/25/2018 Bilateral Screening Mammogram, [facility]. 02/25/2020 Bilateral Screening Mammogram, [facility]. 03/01/2021 Bilateral Screening Mammogram, [facility]. Tissue Density: There are scattered fibroglandular densities. Findings: Analyzed By CAD. There is no suspicious group of microcalcifications or new suspicious mass in either breast. Overall Assessment: Benign, BI-RAD 2 Management: Screening Mammogram of both breasts in 1 year. A clinical breast exam by your physician is recommended on an annual basis and results should be correlated with mammographic findings. Electronically signed and approved by: Jose Gordon M.D. Radiologis
== END | disposition home or self-care (01) ==
LOC: RADMAMWWP 12:23
PROVIDERS: ATTEND Internal Medicine
DX: Z12.31 Encounter for screening mammogram for malignant neoplasm of breast (principal); Z78.0 Asymptomatic menopausal state; Z80.3 Family history of malignant neoplasm of breast
CPT/HCPCS: 77067

== ENCOUNTER 2022-04-14 11:18 | Day surgery (SDC) | payer OTHER ==
[2022-04-13 11:42] VITALS: BMI 34.9
[2022-04-14 12:03] VITALS: TEMP 98
[2022-04-14] MEDS ORDERED: LACTATED RINGERS 1,000 ML IV ONE (12:03)
[2022-04-14] MEDS ORDERED: ROPIVACAINE 5 MG/ML 20 ML AMPULE ONE (12:57)
[2022-04-14] MEDS ORDERED: methylPREDNISolone ACETATE 40 MG/ML 1 ML VIAL ONE (12:57)
[2022-04-14] MEDS ORDERED: MIDAZOLAM 2 MG/2 ML VIAL ONE (12:57)
[2022-04-14] MEDS ORDERED: fentaNYL (PF) 50 MCG/ML 2 ML AMP ONE (12:57)
--- NOTE | 2022-04-14 13:27 | P.PCN ---
Date of Procedure: 04/14/22 Procedure(s) Performed: PREOPERATIVE DIAGNOSIS: 1-Lumbar Spondylosis with Facet Arthropathy without myelopathy. 2- Lumber degenerative disc disease. POSTOPERATIVE DIAGNOSIS: 1- Lumbar Spondylosis with Facet Arthropathy without myelopathy. 2- Lumber degenerative disc disease. PROCEDURES : Bilateral Radiofrequency thermocoagulation, L3 , L4 , and L5 medial branch, with fluoroscopic guidance (fluoroscopy images available in the radiology department) ( to denervate the facet joint at Bilateral L4-5 ,and L5-S1 levels ). ANESTHESIA: Monitored anesthesia care as per anesthesia department . EBL: Minimal PROCEDURE INDICATION: The patient with low back pain secondary to lumbar facet arthropathy who had more than 50% relief of her pain with previous diagnostic lumbar medial branch block with bupivacaine. PROCEDURE DESCRIPTION / TECHNIQUE: The patient was seen and identified in the preoperative area. Risks, benefits, complications, including but not limited to risk of infection ,bleeding , allergic reactions to the medications and no complete pain releife , and alternatives were discussed with the patient, the patient agreed to proceed with the procedure and signed the consent. IV was started. Vital signs remained stable throughout the procedure. Patient was taken to the OR and time out was completed. The patient was placed in the prone position on the procedure table. The lumber area was prepped and draped in the usual sterile fashion. . Vital signs were closely monitored during the procedure .IV sedation was used during the procedure to decrease patients anxiety. Using AP and then oblique fluoroscopy, the ``eye of the Sandeep dog co rresponding to the connection between the superior and transverse articular processes of right L3, L4, and L5 were identified, marked, and localized with 1% lidocaine. Subsequently, a [id number] radiofrequency cannula with a 10- mm active tip was advanced guided by fluoroscopy to each of the``eyes of the Sandeep dog at right L3, L4, and L5. Each site then underwent sensory testing at 50 Hz and 0 to 1 volt and motor testing at 2.5 Hz and 0 to 3 volt with local stimulation, but no radicular symptoms down the legs. Thereafter each sites underwent radiofrequency thermocoagulation at 80 degrees celsius for 90 seconds after injecting 0.5 ml of PF Ropivacaine 1ml, then after the thermocoagulation done , 1 ml of the block solution containing Depo-Medrol 20 mg and 3 ml of Ropivacaine 0.5% was injected at the right L3 , L4 , and L5 , levels after negative aspiration of CSF and blood and with no paresthesias. Cannulas were retracted while injecting lidocaine 1% until the needle is out. The same procedure was repeated at the level of Left L3, L4, and L5 levels. At the end of the procedure, the skin was cleansed and bandages were applied. COMPLICATIONS: No acute complications. DISPOSITION / PLANS: The patient was placed in a supine position and transferred to the recovery area in a stable condition for observation and was discharged from the recovery room after meeting discharge criteria. Home discharge instructions given to the patient by the staff. The patient was reexamined prior to discharge. The patient will schedule a follow up in the clinic in 2-4 weeks.
[2022-04-14] MEDS ORDERED: IV FLUID CONTINUATION 1,000 ML IV ONE (13:31)
--- NOTE | 2022-04-14 13:40 | FL ---
EXAMINATION TYPE: FL guided pain mgmt statistic DATE OF EXAM: 04/14/2022 CLINICAL HISTORY: Low back pain. TECHNIQUE: Fluoroscopy. COMPARISON: None. FINDINGS: Fluoroscopic guidance was provided during pain relief procedure performed by Dr. Campoverde . A total of 25 seconds of fluoroscopic time was utilized during the procedure and 7 spot images are acquired. Images acquired shows needle localization at multiple levels in the lumbar spine. IMPRESSION: As Above.
[2022-04-14 13:52] VITALS: BP 121/81; PULSE 83; RESP 17
== END 2022-04-14 14:05 | disposition home or self-care (01) ==
LOC: ORPAIN 11:18
PROVIDERS: ATTEND Specialist
DX: M47.816 Spondylosis without myelopathy or radiculopathy, lumbar region (principal); M51.36 Other intervertebral disc degeneration, lumbar region
CPT/HCPCS: 64635; 64636 ×2; J2250; J1030; J3010; J2795

== ENCOUNTER → 2022-05-04 | Outpatient (CLI) | payer OTHER ==
[2022-05-04 09:49] VITALS: BP 108/75; PULSE 96; RESP 18; TEMP 97.6
--- NOTE | 2022-05-04 09:54 | P.PAINPG ---
PQRS Measure Charge Sheet Comment: A 51 yr old female with a history of severe and chronic low back pain secondary to lumbar degenerative disc diseases and lumbar spondylosis with facet arthropathy without myelopathy presents today for evaluation s/p RFA L3-L5. Pt states she experienced 50% pain relief s/p procedure. Pain level is currently at 2/10 in intensity, constant, localized in the lower lumbar spine, dull/ achy in character w shooting towards . Pain is provoked 8/10 w overactivity. Pain is alleviated with PT x 4 wks in May 2021, massage therapy to start soon, meds (Voltaren tabs & gel, Zanaflex), ice, repositioning and rest. She admits to drinking a beer every night which reduces pain. Substance abuse counseling discussed to determine if pt meets CAGE criteria. Interventional pain procedures completed include BL RFA L3-5. Patient is currently on Zanaflex, Voltaren gel. Patient denies any side effects of the medication(s), denies excessive drowsiness or sleepiness, denies suicidal ideation and reports that the current pain medication is helping to control the pain and improve activities of daily living. Patient denies any motor or sensory deficits. Patient denies any fever or night sweats, denies any change in the bowel movements or urination. Physical Examination: -Constitutional: Cooperative. Not in acute distress . - Neurologic: Cranial nerve II to XII intact. No focal neurological deficits. - Psychatric: Alert & oriented x 3. Matching mood & appropriate affect. Judgment and insight intact. - Musculoskeletal: Cervical spine: Muscle bulk/ tone/ strength in the bilateral upper extremities normal Vertebral body tenderness to palpation over Spurling test positive Distraction test positive Facet loading test positive Thoracic spine Muscle bulk / tone/ strength in the bilateral paraspinal muscles normal Vertebral body tender to palpation over Facet loading test positive Lumbar spine: L>R lateral L5 TTP Motor bulk/ tone/ strength lower extremities , thigh and legs : 5/5 Deep tendon reflexes : Normal Knee Jerk. Normal Ankle Jerk . Vertebral body tenderness to palpation over Lumbar Facet Loading Test positive Straight Leg Raise: positive at 30 degrees right side/ left side Gaenslen's Test positive Sacral spine : Severe tenderness over the Sacroiliac joint: right side / left side Range of motion: Flexion of the lumbar spine <60 degrees Range of motion: Extension of the lumbar spine <20 degrees Gaenslen's Test positive Quinten's Test positive Ramon test: positive right side / left side Thigh Thrust Test Sacral Thrust Test Assessment and plan: Chronic low back pain secondary to lumbar degenerative disc disease , lumbar spondylosis with facet arthropathy without myelopathy Recommendation of BL iliolumbar ligament injection. May need a series, up to 2 within a 4 mo period, for optimal pain relief. Risks, benefits of procedure discussed and pt verbalized understanding. Denies anticoagulant use or medical history of diabetes. All patient questions answered I have spent less than 30 minutes on patient care today. Dr Campoverde was available by phone for the evaluation of this patient. The time was used to review the medical records including relevant urine studies and Prescription history (MAPs), review of the available imaging, evaluation and examination of the patient, coordination of care with the medical staff and if applicable referring physicians, as well as creation of the medical record PQRS Narrative: Smoking Status Current every day smoker Hx Alcohol Use (MH) Yes: occ Home Medications: Ambulatory Orders DULoxetine HCL [Cymbalta] 60 mg PO QAM 02/01/16 Albuterol Inhaler [Ventolin Hfa Inhaler] 2 puff INHALATION Q6H PRN 07/17/18 Atorvastatin [Lipitor] 20 mg PO HS 07/17/18 Diclofenac Sodium [Voltaren] 75 mg PO BID 07/17/18 Montelukast [Singulair] 10 mg PO HS 07/17/18 Omeprazole [PriLOSEC] 20 mg PO BID 06/27/19 lisinopriL [Zestril] 5 mg PO BID 06/27/19 Multivit-Min/FA/Lycopen/Lutein [Centrum Silver Tablet] 1 each PO DAILY 01/21/20 Fluticasone Propion/Salmeterol [Advair 250-50 Diskus] 1 each IH BID 07/28/20 Diclofenac Sodium Gel [Voltaren Gel] 2 gm TOPICAL QID #100 gm 07/13/21 tiZANidine HCL [Zanaflex] 4 mg PO Q8HR PRN 30 Days #90 tab 12/01/21 Ergocalciferol [Vitamin D2 (1250 Mcg = 81128 Iu)] 1,250 mcg PO SA 04/13/22 Controlled Substance Measures - Controlled Substance Measures Is patient prescribed a controlled substance at discharge?: No
== END ==
LOC: PNWHC3 09:14
PROVIDERS: ATTEND Specialist
DX: M51.36 Other intervertebral disc degeneration, lumbar region (principal); M47.816 Spondylosis without myelopathy or radiculopathy, lumbar region; G89.29 Other chronic pain; F17.200 Nicotine dependence, unspecified, uncomplicated
CPT/HCPCS: 99211

== ENCOUNTER 2022-05-30 08:29 | Day surgery (SDC) | payer OTHER ==
[~2022-05-30 08:29] MED LIST changes: -LIDOCAINE 1% (10MG/ML) FOR IV START INTRADERMA PRN
[2022-05-30 08:46] VITALS: RESP 16; TEMP 96.8
[2022-05-30] MEDS ORDERED: LIDOCAINE 1% (10MG/ML) FOR IV START INTRADERMA ONE (08:55)
[2022-05-30] MEDS ORDERED: TRIAMCINOLONE ACETONIDE 40 MG/ML 1 ML VIAL ONE (09:02)
[2022-05-30] MEDS ORDERED: MIDAZOLAM 2 MG/2 ML VIAL ONE (09:02)
[2022-05-30] MEDS ORDERED: fentaNYL (PF) 50 MCG/ML 2 ML AMP ONE (09:02)
[2022-05-30] MEDS ORDERED: ROPIVACAINE 5 MG/ML 20 ML AMPULE ONE (09:02)
--- NOTE | 2022-05-30 09:14 | P.PCN ---
Date of Procedure: 05/30/22 Surgeon: Bijal Mclean Pathology: none sent Condition: stable Disposition: PACU Description of Procedure: Name of procedure: B/L Iliolumbar ligament injection under fluoroscopic guidance Preoperative post operative Diagnosis: Nonspecific low back pain after lumbar medial branch radiofrequency ablation Anesthesia: Local with lidocaine 1% and IV moderate conscious sedation with fentanyl and Versed Description of procedure: The patient was brought into the procedure room and placed in prone position. ASA monitors were applied. Skin was prepped with ChloraPrep and draped in a sterile manner. Lidocaine 1% was used to numb the skin up at the target point which was chosen as follows: The tip of the L5 transverse process was identified on AP view of fluoroscopy and the target point was at a line connecting this tip to the superior iliac crest on the Rt side. I used 22-gauge 3-1/2 inch Quincke spinal needle to go through the skin and to contact the medial aspect of the iliac crest on AP fluoroscopy and after negative aspiration I injected 5 MLS of ropivacaine 0.5% +20 mg of Kenalog. The procedure was repeated in the same manner on the opposite side. The needle then was withdrawn intact. Patient tolerated procedure well. A copy of needle placement was saved to the C-arm in the radiology department. Sedation time:[id number]
[2022-05-30] MEDS ORDERED: IV FLUID CONTINUATION 1,000 ML IV ONE (09:17)
[2022-05-30 09:19] VITALS: PULSE 85
[2022-05-30 09:32] VITALS: BP 136/87
--- NOTE | 2022-05-30 09:46 | FL ---
Intraoperative/procedural fluoroscopic services were provided. Total fluoroscopy time is 4 seconds wi th a total of 1 submitted images to PACS. Please see the operative/procedural note for further detail s.
== END 2022-05-30 09:47 | disposition home or self-care (01) ==
LOC: ORPAIN 08:29
PROVIDERS: ATTEND Anesthesiology
DX: M54.9 Dorsalgia, unspecified (principal)
CPT/HCPCS: 20550; J2250; J3301; J3010; J2795

== ENCOUNTER → 2022-06-29 | Outpatient (CLI) | payer OTHER ==
[2022-06-29 08:53] VITALS: BP 125/86; PULSE 89; RESP 18; TEMP 97.7
--- NOTE | 2022-06-29 14:22 | P.PAINPG ---
PQRS Measure Charge Sheet Comment: A 52 yr old female with a history of severe and chronic low back pain secondary to lumbar DDD and spondylosis with facet arthropathy without myelopathy presents today for evaluation s/p BL iliolumbar ligament injection. Pt states she experienced 10% pain relief x 4 wks s/p procedure. Pain level is currently at 7 /10 in intensity, constant, localized in the BL glutes L>R, stabbing in charcter w heaviness towards the BLEs. Pain is provoked by bending, lifting. Pain is alleviated with use of walker for ambulation, PT x 2 sets of sessions in 2020 integrated w massage, chiropractic treatments as needed, ice, meds (Voltaren), laying supine and rest. Interventional pain procedures completed include BL RFA L3-L5, BL iliolumbar injection, BL SI, LESIs Patient is currently on Voltaren Patient denies any side effects of the medication(s), denies excessive drowsiness or sleepiness, denies suicidal ideation and reports that the current pain medication is helping to control the pain and improve activities of daily living. Patient denies any motor or sensory deficits. Patient denies any fever or night sweats, denies any change in the bowel movements or urination. Physical Examination: -Constitutional: Cooperative. Not in acute distress . - Neurologic: Cranial nerve II to XII intact. No focal neurological deficits. - Psychatric: Alert & oriented x 3. Matching mood & appropriate affect. Judgment and insight intact. - Musculoskeletal: Cervical spine: Muscle bulk/ tone/ strength in the bilateral upper extremities normal Vertebral body tenderness to palpation over Spurling test positive Distraction test positive Facet loading test positive Thoracic spine Muscle bulk / tone/ strength in the bilateral paraspinal muscles normal Vertebral body tender to palpation over Facet loading test positive Lumbar spine: Motor bulk/ tone/ strength lower extremities , thigh and legs : 5/5 Deep tendon reflexes : Normal Knee Jerk. Normal Ankle Jerk . Vertebral body tenderness to palpation over L5 Lumbar Facet Loading Test positive Straight Leg Raise: positive at 30 degrees right side/ left side Gaenslen's Test positive Sacral spine : Severe tenderness over the Sacroiliac joint: right side / left side Range of motion: Flexion of the lumbar spine <60 degrees Range of motion: Extension of the lumbar spine <20 degrees Gaenslen's Test positive BL Ramon test: positive right side / left side Thigh Thrust Test Sacral Thrust Test Assessment and plan: Chronic LBP secondary to lumbar DDD, spondylosis with facet arthropathy without myelopathy Recommendation of follow up w Neurology re: EMG. Pt is not an IPG candidate as she also has motor nerve issues. She states that her orthopedic surgeon recommended weight loss before surgical intervention but she has been unable to follow through. She states she may not qualify for bariatric surgery due to her BMI. Discussed w pt to explore all treatment options. She does not want narcotic medications as she is a THC patient. Risks, benefits of procedure discussed and pt verbalized understanding. Denies anticoagulant use or medical history of diabetes. All patient questions answered I have spent less than 30 minutes on patient care today. Dr Campoverde was available by phone for the evaluation of this patient. The time was used to review the medical records including relevant urine studies and Prescription history (MAPs), review of the available imaging, evaluation and examination of the patient, coordination of care with the medical staff and if applicable referring physicians, as well as creation of the medical record PQRS Narrative: Smoking Status Current every day smoker Hx Alcohol Use (MH) Yes: occ Home Medications: Ambulatory Orders DULoxetine HCL [Cymbalta] 60 mg PO QAM 02/01/16 Albuterol Inhaler [Ventolin Hfa Inhaler] 2 puff INHALATION Q6H PRN 07/17/18 Atorvastatin [Lipitor] 20 mg PO HS 07/17/18 Diclofenac Sodium [Voltaren] 75 mg PO BID 07/17/18 Montelukast [Singulair] 10 mg PO HS 07/17/18 Omeprazole [PriLOSEC] 20 mg PO BID 06/27/19 lisinopriL [Zestril] 5 mg PO BID 06/27/19 Multivit-Min/FA/Lycopen/Lutein [Centrum Silver Tablet] 1 each PO DAILY 01/21/20 Fluticasone Propion/Salmeterol [Advair 250-50 Diskus] 1 each IH BID 07/28/20 Diclofenac Sodium Gel [Voltaren Gel] 2 gm TOPICAL QID #100 gm 07/13/21 tiZANidine HCL [Zanaflex] 4 mg PO Q8HR PRN 30 Days #90 tab 12/01/21 Cholecalciferol [Vitamin D3 (25 Mcg = 1000 Iu)] 25 mcg PO DAILY 05/29/22 Controlled Substance Measures - Controlled Substance Measures Is patient prescribed a controlled substance at discharge?: No
== END | disposition home or self-care (01) ==
LOC: PNWHC3 08:08
PROVIDERS: ATTEND Specialist
DX: M47.816 Spondylosis without myelopathy or radiculopathy, lumbar region (principal); M51.36 Other intervertebral disc degeneration, lumbar region; G89.29 Other chronic pain; F17.200 Nicotine dependence, unspecified, uncomplicated
CPT/HCPCS: 99211

== ENCOUNTER 2022-11-17 11:48 | Day surgery (SDC) | payer OTHER ==
[2022-11-15 15:13] VITALS: BMI 36.3
[~2022-11-17 11:48] MED LIST changes: +LIDOCAINE 1% (10MG/ML) FOR IV START INTRADERMA PRN
[2022-11-17] MEDS ORDERED: LACTATED RINGERS 1,000 ML IV ONE (12:10)
[2022-11-17] MEDS ORDERED: MIDAZOLAM 2 MG/2 ML VIAL ONE (12:45)
[2022-11-17] MEDS ORDERED: methylPREDNISolone ACETATE 40 MG/ML 1 ML VIAL ONE (12:45)
[2022-11-17] MEDS ORDERED: fentaNYL (PF) 50 MCG/ML 2 ML AMP ONE (12:45)
[2022-11-17] MEDS ORDERED: ROPIVACAINE 5 MG/ML 20 ML AMPULE ONE (12:45)
--- NOTE | 2022-11-17 13:12 | P.PCN ---
Date of Procedure: 11/17/22 Procedure(s) Performed: PREOPERATIVE DIAGNOSIS: 1-Lumbar Spondylosis with Facet Arthropathy without myelopathy. 2- Lumber degenerative disc disease. POSTOPERATIVE DIAGNOSIS: 1- Lumbar Spondylosis with Facet Arthropathy without myelopathy. 2- Lumber degenerative disc disease. PROCEDURES : Bilateral Radiofrequency thermocoagulation, L3 , L4 , and L5 medial branch, with fluoroscopic guidance (fluoroscopy images available in the radiology department) ( to denervate the facet joint at Bilateral L4-5 ,and L5-S1 levels ). ANESTHESIA: Monitored anesthesia care as per anesthesia department . EBL: Minimal PROCEDURE INDICATION: The patient with low back pain secondary to lumbar facet arthropathy who had more than 50% relief of her pain with previous diagnostic lumbar medial branch block with bupivacaine. PROCEDURE DESCRIPTION / TECHNIQUE: The patient was seen and identified in the preoperative area. Risks, benefits, complications, including but not limited to risk of infection ,bleeding , allergic reactions to the medications and no complete pain releife , and alternatives were discussed with the patient, the patient agreed to proceed with the procedure and signed the consent. IV was started. Vital signs remained stable throughout the procedure. Patient was taken to the OR and time out was completed. The patient was placed in the prone position on the procedure table. The lumber area was prepped and draped in the usual sterile fashion. . Vital signs were closely monitored during the procedure .IV sedation was used during the procedure to decrease patients anxiety. Using AP and then oblique fluoroscopy, the ``eye of the Sandeep dog co rresponding to the connection between the superior and transverse articular processes of right L3, L4, and L5 were identified, marked, and localized with 1% lidocaine. Subsequently, a [id number] radiofrequency cannula with a 10- mm active tip was advanced guided by fluoroscopy to each of the``eyes of the Sandeep dog at right L3, L4, and L5. Each site then underwent sensory testing at 50 Hz and 0 to 1 volt and motor testing at 2.5 Hz and 0 to 3 volt with local stimulation, but no radicular symptoms down the legs. Thereafter each sites underwent radiofrequency thermocoagulation at 80 degrees celsius for 90 seconds after injecting 0.5 ml of PF Ropivacaine 1ml, then after the thermocoagulation done , 1 ml of the block solution containing Depo-Medrol 20 mg and 3 ml of Ropivacaine 0.5% was injected at the right L3 , L4 , and L5 , levels after negative aspiration of CSF and blood and with no paresthesias. Cannulas were retracted while injecting lidocaine 1% until the needle is out. The same procedure was repeated at the level of Left L3, L4, and L5 levels. At the end of the procedure, the skin was cleansed and bandages were applied. COMPLICATIONS: No acute complications. DISPOSITION / PLANS: The patient was placed in a supine position and transferred to the recovery area in a stable condition for observation and was discharged from the recovery room after meeting discharge criteria. Home discharge instructions given to the patient by the staff. The patient was reexamined prior to discharge. The patient will schedule a follow up in the clinic in 2-4 weeks.
[2022-11-17] MEDS ORDERED: IV FLUID CONTINUATION 900 ML IV ONE (13:17)
[2022-11-17 13:19] VITALS: RESP 16
--- NOTE | 2022-11-17 13:21 | FL ---
EXAMINATION TYPE: FL guided pain mgmt statistic DATE OF EXAM: 11/17/2022 CLINICAL HISTORY: Low back pain. TECHNIQUE: Fluoroscopy. COMPARISON: None. FINDINGS: Fluoroscopic guidance was provided during pain relief procedure performed by Dr. Campoverde . A total of 36 seconds of fluoroscopic time was utilized during the procedure and 6 spot images are acquired. Images acquired shows needle localization at several levels in the lumbar spine. IMPRESSION: As Above.
[2022-11-17 13:33] VITALS: BP 112/70; PULSE 72
== END 2022-11-17 13:47 | disposition home or self-care (01) ==
LOC: ORPAIN 11:48
PROVIDERS: ATTEND Anesthesiology
DX: M51.36 Other intervertebral disc degeneration, lumbar region (principal); M47.817 Spondylosis without myelopathy or radiculopathy, lumbosacral region; I10 Essential (primary) hypertension; E78.5 Hyperlipidemia, unspecified; J45.909 Unspecified asthma, uncomplicated; F17.200 Nicotine dependence, unspecified, uncomplicated; K21.9 Gastro-esophageal reflux disease without esophagitis; G89.29 Other chronic pain; Z79.51 Long term (current) use of inhaled steroids; Z79.899 Other long term (current) drug therapy
CPT/HCPCS: 64635; 64636; J2250; J1030; J3010; J2795

== ENCOUNTER → 2022-12-20 | Outpatient (CLI) | payer OTHER ==
[2022-12-20 12:41] VITALS: BP 122/78; PULSE 110; RESP 18; TEMP 98.1
--- NOTE | 2022-12-20 15:23 | P.PAINPG ---
PQRS Measure Charge Sheet Comment: A 52 yr old female with a history of severe and chronic LBP secondary to lumbar DDD and spondylosis with facet arthropathy without myelopathy presents today for evaluation s/p BL RFA L4-L5, L5-S1. Pt states she experienced 90% pain relief s/p procedure. Pain level is provoked at 2/10 in intensity, constan t, localized in the lumbar spine, tight in character w/o shooting pain. Pain is provoked by excess bending & lifting. Pain is alleviated with ice, medications, topical, use of a walker for ambulatory assistance, repositioning and rest. Interventional pain procedures completed include BL RFA L3-5 Patient is currently on Zanaflex, Voltaren tabs, Voltaren gel Patient denies any side effects of the medication(s), denies excessive drowsiness or sleepiness, denies suicidal ideation and reports that the current pain medication is helping to control the pain and improve activities of daily living. Patient denies any motor or sensory deficits. Patient denies any fever or night sweats, denies any change in the bowel movements or urination. Physical Examination: -Constitutional: Cooperative. Not in acute distress . - Neurologic: Cranial nerve II to XII intact. No focal neurological deficits. - Psychatric: Alert & oriented x 3. Matching mood & appropriate affect. Judgment and insight intact. - Musculoskeletal: Cervical spine: Muscle bulk/ tone/ strength in the bilateral upper extremities normal Vertebral body tenderness to palpation over Spurling test positive Distraction test positive Facet loading test positive TTP Thoracic spine Muscle bulk / tone/ strength in the bilateral paraspinal muscles normal Vertebral body tender to palpation over Facet loading test positive TTP Lumbar spine: Motor bulk/ tone/ strength lower extremities , thigh and legs : 5/5 Deep tendon reflexes : Normal Knee Jerk. Normal Ankle Jerk . Vertebral body tenderness to palpation over Lumbar Facet Loading Test positive Straight Leg Raise: positive at 30 degrees right side/ left side Gaenslen's Test positive Sacral spine : Severe tenderness over the Sacroiliac joint: right side / left side Range of motion: Flexion of the lumbar spine <60 degrees Range of motion: Extension of the lumbar spine <20 degrees Gaenslen's Test positive right side / left side Ramon test: positive right side / left side Thigh Thrust Test positive right side / left side Sacral Thrust Test positive right side / left side Assessment and plan: Chronic LBP secondary to lumbar DDD, spondylosis with facet arthropathy without myelopathy Will manage residual pain at home and may return to clinic on an as needed basis. All questions answered. I have spent less than 30 minutes on patient care today. Dr Campoverde was available by phone for the evaluation of this patient. The time was used to review the medical records including relevant urine studies and Prescription history (MAPs), review of the available imaging, evaluation and examination of the patient, coordination of care with the medical staff and if applicable referring physicians, as well as creation of the medical record PQRS Narrative: Smoking Status Current every day smoker Hx Alcohol Use (MH) Yes: occ Home Medications: Ambulatory Orders DULoxetine HCL [Cymbalta] 60 mg PO QAM 02/01/16 Albuterol Inhaler [Ventolin Hfa Inhaler] 2 puff INHALATION Q6H PRN 07/17/18 Atorvastatin [Lipitor] 20 mg PO HS 07/17/18 Diclofenac Sodium [Voltaren] 75 mg PO BID 07/17/18 Montelukast [Singulair] 10 mg PO HS 07/17/18 Omeprazole [PriLOSEC] 20 mg PO BID 06/27/19 lisinopriL [Zestril] 5 mg PO BID 06/27/19 Multivit-Min/FA/Lycopen/Lutein [Centrum Silver Tablet] 1 each PO DAILY 01/21/20 Fluticasone Propion/Salmeterol [Advair 250-50 Diskus] 1 each IH BID 07/28/20 Diclofenac Sodium Gel [Voltaren Gel] 2 gm TOPICAL QID #100 gm 07/13/21 Cholecalciferol [Vitamin D3 (25 Mcg = 1000 Iu)] 25 mcg PO DAILY 05/29/22 tiZANidine [Zanaflex] 8 mg PO Q8HR PRN 30 Days #90 tab 10/23/22 Controlled Substance Measures - Controlled Substance Measures Is patient prescribed a controlled substance at discharge?: No
== END ==
LOC: PNWHC3 12:04
PROVIDERS: ATTEND Specialist
DX: M51.36 Other intervertebral disc degeneration, lumbar region (principal); M47.816 Spondylosis without myelopathy or radiculopathy, lumbar region; F17.210 Nicotine dependence, cigarettes, uncomplicated
CPT/HCPCS: 99211

== ENCOUNTER → 2023-07-19 | Outpatient (CLI) | payer OTHER ==
[2023-07-19 13:51] VITALS: BP 125/85; PULSE 86; RESP 16; TEMP 98.2
--- NOTE | 2023-07-19 15:37 | P.PAINPG ---
PQRS Measure Charge Sheet Comment: A 52 yr old female with a history of severe and chronic LBP secondary to lumbar DDD and spondylosis with facet arthropathy without myelopathy presents today for evaluation. Pt underwent a BL RFA of the L4-L5, L5-S1 in December 2022 and received 85% pain relief x 6 mo s/p procedure. Pain level is provoked at 6/10 in intensity, constant, predominantly axial, localized in the lumbar spine, tight in character w/o shooting pain. Pain is provoked by standing/ walking for periods of >10 min. Pt uses a walker w a fold down seat for ambulation due to pain. Pain is alleviated with ice, medications, topical, use of a walker for ambulatory assistance, repositioning and rest. Oswestry axial pain score of 26. Interventional pain procedures completed include BL RFA L3-5 (December 2022) Patient is currently on Zanaflex, Voltaren tabs, Voltaren gel Patient denies any side effects of the medication(s), denies excessive drowsiness or sleepiness, denies suicidal ideation and reports that the current pain medication is helping to control the pain and improve activities of daily living. Patient denies any motor or sensory deficits. Patient denies any fever or night sweats, denies any change in the bowel movements or urination. Physical Examination: -Constitutional: Cooperative. Not in acute distress . - Neurologic: Cranial nerve II to XII intact. No focal neurological deficits. - Psychatric: Alert & oriented x 3. Matching mood & appropriate affect. Judgment and insight intact. - Musculoskeletal: Cervical spine: Muscle bulk/ tone/ strength in the bilateral upper extremities normal Vertebral body tenderness to palpation over Spurling test positive Distraction test positive Facet loading test positive TTP Thoracic spine Muscle bulk / tone/ strength in the bilateral paraspinal muscles normal Vertebral body tender to palpation over Facet loading test positive TTP Lumbar spine: Motor bulk/ tone/ strength lower extremities , thigh and legs : 5/5 Deep tendon reflexes : Normal Knee Jerk. Normal Ankle Jerk . Vertebral body tenderness to palpation over Lumbar Facet Loading Test positive over BL L4-L5, L5-S1 Straight Leg Raise: positive at 30 degrees right side/ left side Gaenslen's Test positive Sacral spine : Severe tenderness over the Sacroiliac joint: right side / left side Range of motion: Flexion of the lumbar spine <60 degrees Range of motion: Extension of the lumbar spine <20 degrees Gaenslen's Test positive right side / left side Ramon test: positive right side / left side Thigh Thrust Test positive right side / left side Sacral Thrust Test positive right side / left side Assessment and plan: Chronic LBP secondary to lumbar DDD, spondylosis with facet arthropathy without myelopathy Recommendation of BL RFA L4-L5, L5-S1. Pt exhibited substantial pain relief w prior RFA of the BL L4-L5. L5-S1 from December 2022. Risks, benefits of procedure discussed and pt verbalized understanding. Protocol for discontinuation/ continuation of medications surrounding procedure discussed. All questions answered. I have spent less than 30 minutes on patient care today. Dr Campoverde was available by phone for the evaluation of this patient. The time was used to review the medical records including relevant urine studies and Prescription history (MAPs), review of the available imaging, evaluation and examination of the patient, coordination of care with the medical staff and if applicable referring physicians, as well as creation of the medical record PQRS Narrative: Smoking Status Current every day smoker Hx Alcohol Use (MH) Yes: occ Home Medications: Ambulatory Orders DULoxetine HCL [Cymbalta] 60 mg PO QAM 02/01/16 Albuterol Inhaler [Ventolin Hfa Inhaler] 2 puff INHALATION Q6H PRN 07/17/18 Atorvastatin [Lipitor] 20 mg PO HS 07/17/18 Diclofenac Sodium [Voltaren] 75 mg PO BID 07/17/18 Montelukast [Singulair] 10 mg PO HS 07/17/18 Omeprazole [PriLOSEC] 20 mg PO BID 06/27/19 lisinopriL [Zestril] 5 mg PO BID 06/27/19 Multivit-Min/FA/Lycopen/Lutein [Centrum Silver Tablet] 1 each PO DAILY 01/21/20 Fluticasone Propion/Salmeterol [Advair 250-50 Diskus] 1 each IH BID 07/28/20 Diclofenac Sodium Gel [Voltaren Gel] 2 gm TOPICAL QID #100 gm 07/13/21 Cholecalciferol [Vitamin D3 (25 Mcg = 1000 Iu)] 25 mcg PO DAILY 05/29/22 tiZANidine [Zanaflex] 8 mg PO Q8HR PRN 30 Days #90 tab 12/27/22 Controlled Substance Measures - Controlled Substance Measures Is patient prescribed a controlled substance at discharge?: No
== END ==
LOC: PNWHC3 11:01
PROVIDERS: ATTEND Specialist
DX: M51.37 Other intervertebral disc degeneration, lumbosacral region (principal); M47.817 Spondylosis without myelopathy or radiculopathy, lumbosacral region; F17.200 Nicotine dependence, unspecified, uncomplicated
CPT/HCPCS: 99211

== ENCOUNTER 2023-09-14 08:24 | Day surgery (SDC) | payer OTHER ==
[2023-09-10 15:17] VITALS: BMI 38.9
[~2023-09-14 08:24] MED LIST changes: -LIDOCAINE 1% (10MG/ML) FOR IV START INTRADERMA PRN
[2023-09-14 08:58] LABS: Glucose,Whole Blood 106 mg/dL (70-110)
[2023-09-14 09:13] VITALS: TEMP 97
[2023-09-14] MEDS ORDERED: MIDAZOLAM 2 MG/2 ML VIAL ONE (09:14)
[2023-09-14] MEDS ORDERED: fentaNYL (PF) 50 MCG/ML 2 ML AMP ONE (09:14)
[2023-09-14] MEDS ORDERED: ROPIVACAINE 5MG/ML 20ML VIAL ONE (09:18)
[2023-09-14] MEDS ORDERED: IV FLUID CONTINUATION 50 ML IV ONE (09:57)
--- NOTE | 2023-09-14 10:04 | FL ---
EXAMINATION TYPE: FL guided pain mgmt statistic DATE OF EXAM: 09/14/2023 FLUOROSCOPY 59sec fluoro time 0.47512 mGycm2 DAP Charan Lumbar Rad Freq 5 images submitted
[2023-09-14 10:12] VITALS: BP 125/84; PULSE 67; RESP 18
--- NOTE | 2023-09-14 10:42 | P.PCN ---
Description of Procedure: Preprocedure diagnosis. 1. Lumbar spondylosis with facet joint arthropathy without myelopathy. 2. Lumbar degenerative disc disease. Procedure diagnosis. 1. Lumbar spondylosis with facet joint arthropathy without myelopathy. Space 2. Lumbar degenerative disc disease. Procedure.Bilateral radiofrequency thermocoagulation L3, L4 and L5 medial branch, with fluoroscopic guidance (fluoroscopy images are available in the radiology department) (to Denervate the facet joint at bilateral L4 5 and L5-S1 levels) Anesthesia. Monitored anesthesia care as per anesthesia department, Moderate sedation with intravenous Versed 2 mg and fentanyl 100 g and local infiltration with ropivacaine 0.5%. In OR, continuous pulse ox, blood pressure, EKG and verbal communication was maintained. EBL minimal. Procedure indication. The patient with low back pain secondary to lumbar facet arthropathy who he had more than 50% relief of her pain with previous diagnostic lumbar medial branch block with local anesthetics. Discussed with the patient about the procedure, alternative treatment, possible complications which may include infection, bleeding, nerve damage, aggravation of pain, all of which could be permanent. Patient understands, all questions were answered. Patient signed consent and agreed to proceed with the procedure. Procedure description/technique. After getting consent, patient was taken to the OR and in prone position. The lumbar area was prepped and draped in the usual sterile fashion. After injecting 5 mL of plain 1% lidocaine subcutaneously, a 18-gauge 100 mm radiofrequency cannula with a 10 mm active tip was introduced under tunnel vision of the fluoroscope at the junction of the superior articular process with RIGHT ala of the sacrum. With slight oblique fluoroscope, after injecting 5 mL of plain 1% lidocaine subcutaneously, a 18- gauge 100 mm radiofrequency cannula with a 10 mm active tip was introduced under tunnel vision of the fluoroscope at the junction of the superior articular process with L5 transverse process and junction of the superior articular process with the L4 transverse process Each site then underwent sensory testing with 50 Hz and 0-1 V and motor testing at 2.5 Hz and 0-3 V with local stimulation but no radicular symptoms down the leg. Thereafter each sites underwent radiofrequency thermocoagulation at 80C for 90 seconds after injecting 1 mL of preservative-free 0.5% ropivacaine. Repeat radiofrequency ablation was done at each points after rotating the needle 180 with same setting . In exactly same way, LEFT sided RFA were done at the following 3 points. Junction of the superior articular process with left ala of the sacrum, junction of the superior articular process with the left L5 transverse process, junction of the superior articular process with left L4 transverse process after needle position confirmation by AP, oblique, lateral view of the fluoroscope, negative CSF negative blood negative paresthesia, sensory and motor stimulations followed by injection of 1 mL of 0.5% ropivacaine. Radiofrequency ablation settings where same as the other side, and second lesion was done after rotating the needle 180. RF needles were taken out. At the end of the procedure the skin was cleansed and Band-Aids were applied. Disposition . Patient tolerated the procedure well. No complication. She was placed in supine position and transferred to the recovery area in stable condition for observation and was discharged home from recovery room after meeting discharge criteria. Discharge instructions given to the patient by the staff. The patient were examined prior to discharge the patient will schedule a follow-up in the clinic in 2-4 weeks.
== END 2023-09-14 10:28 | disposition home or self-care (01) ==
LOC: ORPAIN 08:24
PROVIDERS: ATTEND Pain Medicine Interventional Pain Medicine
DX: M51.36 Other intervertebral disc degeneration, lumbar region (principal); M47.816 Spondylosis without myelopathy or radiculopathy, lumbar region; I10 Essential (primary) hypertension; E78.5 Hyperlipidemia, unspecified; J45.909 Unspecified asthma, uncomplicated; F17.200 Nicotine dependence, unspecified, uncomplicated; F41.9 Anxiety disorder, unspecified; F32.A Depression, unspecified; K21.9 Gastro-esophageal reflux disease without esophagitis; Z79.899 Other long term (current) drug therapy; Z98.890 Other specified postprocedural states
CPT/HCPCS: 64635; 64636 ×2; 99152; 99153; J2250; J3010; J2795

== ENCOUNTER → 2023-10-11 | Outpatient (CLI) | payer OTHER ==
--- NOTE | 2023-10-11 14:11 | XR ---
EXAMINATION TYPE: XR lumbar spine 2 or 3V DATE OF EXAM: 10/11/2023 COMPARISON: None HISTORY: Degenerative disc disease TECHNIQUE: 3 view lumbar spine FINDINGS: There are 5 lumbar-type vertebral bodies. Pedicles are intact. There are loss of disc height throughout the lumbar spine. Vacuum disc phenomenon is present L4-5, L5 -S1 and L2-3. Spondylosis is present. There is a grade 1 retrolisthesis of L2 posterior to L3. Mild g rade 1 anterior listhesis of L4 anteriorly on L5 is present. Vertebral body heights are preserved. IMPRESSION: 1. Degenerative disc changes throughout the lumbar spine. 2. Mild spondylolisthesis L2-3 and L4-5 discussed above
== END | disposition home or self-care (01) ==
LOC: RADXRMAIN 12:43
PROVIDERS: ATTEND Internal Medicine
DX: M51.36 Other intervertebral disc degeneration, lumbar region (principal); M43.16 Spondylolisthesis, lumbar region; M47.816 Spondylosis without myelopathy or radiculopathy, lumbar region
CPT/HCPCS: 72100

== ENCOUNTER → 2023-10-11 | Outpatient (CLI) | payer OTHER ==
[2023-10-11 12:45] VITALS: BP 125/82; PULSE 78; RESP 16; TEMP 97.3
--- NOTE | 2023-10-11 14:20 | P.PAINPG ---
Objective - Vital Signs Vital signs: Intake & Output 10/10/23 10/11/23 10/11/23 18:59 06:59 18:59 Weight 99.79 kg PQRS Measure Charge Sheet Comment: A 52 yr old female with a history of severe and chronic LBP secondary to lumbar DDD and spondylosis with facet arthropathy without myelopathy presents today for evaluation s/p BL RFA L3-L5. Pt states she experienced 0 % pain relief x 6 mo s/p procedure. Pain level is provoked at 6 /10 in intensity, constant, predominantly axial, localized in the lumbar spine, tight in character w/o shooting pain. Pain is provoked by standing/ walking for periods of >10 min. Pt uses a walker w a fold down seat for ambulation due to pain. Pain is alleviated with ice, medications, topical, use of a walker for ambulatory assistance, repositioning and rest. Oswestry axial pain score of 26. Interventional pain procedures completed include BL RFA L3-5 (December 2022) Patient is currently on Zanaflex, Voltaren tabs, Voltaren gel, Cannabis use Patient denies any side effects of the medication(s), denies excessive drowsiness or sleepiness, denies suicidal ideation and reports that the current pain medication is helping to control the pain and improve activities of daily living. Patient denies any motor or sensory deficits. Patient denies any fever or night sweats, denies any change in the bowel movements or urination. Physical Examination: -Constitutional: Cooperative. Not in acute distress . - Neurologic: Cranial nerve II to XII intact. No focal neurological deficits. - Psychatric: Alert & oriented x 3. Matching mood & appropriate affect. Judgment and insight intact. - Musculoskeletal: Cervical spine: Muscle bulk/ tone/ strength in the bilateral upper extremities normal Vertebral body tenderness to palpation over Spurling test positive Distraction test positive Facet loading test positive TTP Thoracic spine Muscle bulk / tone/ strength in the bilateral paraspinal muscles normal Vertebral body tender to palpation over Facet loading test positive TTP Lumbar spine: Motor bulk/ tone/ strength lower extremities , thigh and legs : 5/5 Deep tendon reflexes : Normal Knee Jerk. Normal Ankle Jerk . Vertebral body tenderness to palpation over Lumbar Facet Loading Test positive over BL L4-L5, L5-S1 Straight Leg Raise: positive at 30 degrees right side/ left side Gaenslen's Test positive Sacral spine : Severe tenderness over the Sacroiliac joint: right side / left side Range of motion: Flexion of the lumbar spine <60 degrees Range of motion: Extension of the lumbar spine <20 degrees Gaenslen's Test positive right side / left side Ramon test: positive right side / left side Thigh Thrust Test positive right side / left side Sacral Thrust Test positive right side / left side Imaging: CT non contrast of the lumbar spine from January 2021 reviewed Assessment and plan: Chronic LBP secondary to lumbar DDD, spondylosis with facet arthropathy without myelopathy Recommendation of Lumbar x ray, PT x 6 wks M 51.36 May need additional imaging if indicated. All questions answered. I have spent less than 30 minutes on patient care today. Dr Campoverde was available by phone for the evaluation of this patient. The time was used to review the medical records including relevant urine studies and Prescription history (MAPs), review of the available imaging, evaluation and examination of the patient, coordination of care with the medical staff and if applicable referring physicians, as well as creation of the medical record PQRS Narrative: Smoking Status Current every day smoker Hx Alcohol Use (MH) Yes: occ Home Medications: Ambulatory Orders Albuterol Inhaler [Ventolin Hfa Inhaler] 2 puff INHALATION Q6H PRN 07/17/18 Atorvastatin [Lipitor] 20 mg PO HS 07/17/18 Diclofenac Sodium [Voltaren] 75 mg PO BID 07/17/18 Montelukast [Singulair] 10 mg PO HS 07/17/18 Omeprazole [PriLOSEC] 20 mg PO BID 06/27/19 lisinopriL [Zestril] 5 mg PO BID 06/27/19 Multivit-Min/FA/Lycopen/Lutein [Centrum Silver Tablet] 1 each PO DAILY 01/21/20 Fluticasone Propion/Salmeterol [Advair 250-50 Diskus] 1 each IH BID 07/28/20 Diclofenac Sodium Gel [Voltaren Gel] 2 gm TOPICAL QID #100 gm 07/13/21 Cholecalciferol [Vitamin D3 (25 Mcg = 1000 Iu)] 25 mcg PO DAILY 05/29/22 PARoxetine [Paxil] 20 mg PO DAILY 09/10/23 tiZANidine [Zanaflex] 4 mg PO Q8HR PRN 09/10/23 Controlled Substance Measures - Controlled Substance Measures Is patient prescribed a controlled substance at discharge?: No
== END ==
LOC: PNWHC3 11:54
PROVIDERS: ATTEND Specialist
DX: M51.37 Other intervertebral disc degeneration, lumbosacral region (principal); M47.817 Spondylosis without myelopathy or radiculopathy, lumbosacral region; G89.29 Other chronic pain; F17.200 Nicotine dependence, unspecified, uncomplicated; F12.90 Cannabis use, unspecified, uncomplicated
CPT/HCPCS: 99211

== ENCOUNTER → 2023-10-23 | Outpatient (CLI) | payer MEDICARE, OTHER ==
--- NOTE | 2023-10-27 11:06 | MR ---
EXAMINATION TYPE: MR lumbar spine wo con DATE OF EXAM: 10/23/2023 7:43 PM CLINICAL INDICATION:Female, 53 years old with history of M51.36 DISC DEGENERATION, LUMBAR REGION; PH H, Low back pain that radiates down both legs. COMPARISON: 10/11/2023 TECHNIQUE: Multi planar, multi sequence imaging was performed utilizing: T1-weighted, T2-weighted, a nd turbo inversion recovery imaging of the lumbar spine. IV Contrast: cc . (None if empty) FINDINGS: Motion artifact limits evaluation. Alignment: The lumbar vertebral bodies have preserved heights and alignment. Cord: The conus medullaris and the distal spinal cord appear unremarkable with regards to their signa l intensity and morphology. Bones/Discs: Multilevel degeneration changes throughout the spine with disc space narrowing, facet seb int arthropathy and osteophyte formation. Few scattered Schmorl's nodes are present. Findings worse i n the lower lumbar spine. Motion limits evaluation. T12-L1: No evidence of significant spinal canal stenosis or neural foraminal stenosis. L1-L2: Disc bulge and facet joint arthropathy result in mild spinal canal and to moderate bilateral n eural foraminal stenosis. L2-L3: Disc bulge and facet joint arthropathy result in mild to moderate spinal canal and severe righ t and moderate left neural foraminal stenosis. L3-L4: Disc bulge and facet joint arthropathy result in moderate spinal canal and moderate to severe bilateral neural foraminal stenosis. L4-L5: Disc bulge and facet joint arthropathy result in severe spinal canal and moderate to severe ri ght and severe left bilateral neural foraminal stenosis. L5-S1: The disc is rounded posterior morphology without significant spinal canal stenosis. Facet join t arthropathy with severe bilateral neural foraminal stenosis. No significant spinal canal or neural foraminal stenosis in the remainder of the visualized levels. Other findings: None. IMPRESSION: Extensive motion artifact limits evaluation. Severe degeneration changes worse at L3-L5 with severe spinal canal stenosis at L4-L5 and severe left L4-L5 and moderate to severe bilateral L3-L4 and severe bilateral L5-S1 neural foraminal stenosis.
== END | disposition home or self-care (01) ==
LOC: RADMRIMAIN 17:11
PROVIDERS: ATTEND Specialist
DX: M99.73 Connective tissue and disc stenosis of intervertebral foramina of lumbar region (principal); M51.36 Other intervertebral disc degeneration, lumbar region
CPT/HCPCS: 72148

== ENCOUNTER → 2023-10-31 | Outpatient (CLI) | payer MEDICARE, OTHER ==
--- NOTE | 2023-10-31 14:15 | P.PAINPG ---
PQRS Measure Charge Sheet Comment: A 53 yr old female with a history of severe and chronic LBP secondary to lumbar DDD and spondylosis with facet arthropathy without myelopathy presents today for evaluation of MRI lumbar spine. Pain level is provoked at 1 /10 in intensity, intermittent, predominantly axial, localized in the lumbar spine, tig ht in character w/o shooting pain. Pain is provoked by standing/ walking for periods of >10 min. Pt uses a walker w a fold down seat for ambulation due to pain. Pain is alleviated with ice, medications, topical, use of a walker for ambulatory assistance, repositioning and rest. Oswestry axial pain score of 26. Interventional pain procedures completed include BL RFA L3-5 (December 2022) Patient is currently on Zanaflex, Voltaren tabs, Voltaren gel, Cannabis use Patient denies any side effects of the medication(s), denies excessive drowsiness or sleepiness, denies suicidal ideation and reports that the current pain medication is helping to control the pain and improve activities of daily living. Patient denies any motor or sensory deficits. Patient denies any fever or night sweats, denies any change in the bowel movements or urination. Physical Examination: -Constitutional: Cooperative. Not in acute distress . - Neurologic: Cranial nerve II to XII intact. No focal neurological deficits. - Psychatric: Alert & oriented x 3. Matching mood & appropriate affect. Judgment and insight intact. - Musculoskeletal: Cervical spine: Muscle bulk/ tone/ strength in the bilateral upper extremities normal Vertebral body tenderness to palpation over Spurling test positive Distraction test positive Facet loading test positive TTP Thoracic spine Muscle bulk / tone/ strength in the bilateral paraspinal muscles normal Vertebral body tender to palpation over Facet loading test positive TTP Lumbar spine: Motor bulk/ tone/ strength lower extremities , thigh and legs : 5/5 Deep tendon reflexes : Normal Knee Jerk. Normal Ankle Jerk . Vertebral body tenderness to palpation over Jamison Test positive L3-L5 Lumbar Facet Loading Test positive Straight Leg Raise: positive at 30 degrees right side/ left side Gaenslen's Test positive Sacral spine : Severe tenderness over the Sacroiliac joint: right side / left side Range of motion: Flexion of the lumbar spine <60 degrees Range of motion: Extension of the lumbar spine <20 degrees Gaenslen's Test positive right side / left side Ramon test: positive right side / left side Thigh Thrust Test positive right side / left side Sacral Thrust Test positive right side / left side Imaging: CT non contrast of the lumbar spine from January 2021 reviewed MRI non contrast of the lumbar spine from 10/23/23 reviewed Assessment and plan: Chronic LBP secondary to severe L4-5 spinal stenosis, DDD, spondylosis with facet arthropathy without myelopathy Recommendation of follow up w Dr Shah to explore additional treatment options. All questions answered. I have spent less than 30 minutes on patient care today. Dr Campoverde was available by phone for the evaluation of this patient. The time was used to review the medical records including relevant urine studies and Prescription history (MAPs), review of the available imaging, evaluation and examination of the patient, coordination of care with the medical staff and if applicable referring physicians, as well as creation of the medical record PQRS Narrative: Smoking Status Current every day smoker Hx Alcohol Use (MH) Yes: occ Home Medications: Ambulatory Orders Albuterol Inhaler [Ventolin Hfa Inhaler] 2 puff INHALATION Q6H PRN 07/17/18 Atorvastatin [Lipitor] 20 mg PO HS 07/17/18 Diclofenac Sodium [Voltaren] 75 mg PO BID 07/17/18 Montelukast [Singulair] 10 mg PO HS 07/17/18 Omeprazole [PriLOSEC] 20 mg PO BID 06/27/19 lisinopriL [Zestril] 5 mg PO BID 06/27/19 Multivit-Min/FA/Lycopen/Lutein [Centrum Silver Tablet] 1 each PO DAILY 01/21/20 Fluticasone Propion/Salmeterol [Advair 250-50 Diskus] 1 each IH BID 07/28/20 Diclofenac Sodium Gel [Voltaren Gel] 2 gm TOPICAL QID #100 gm 07/13/21 Cholecalciferol [Vitamin D3 (25 Mcg = 1000 Iu)] 25 mcg PO DAILY 05/29/22 PARoxetine [Paxil] 20 mg PO DAILY 09/10/23 tiZANidine [Zanaflex] 4 mg PO Q8HR PRN 09/10/23 Controlled Substance Measures - Controlled Substance Measures Is patient prescribed a controlled substance at discharge?: No
[2023-10-31 14:35] VITALS: BP 114/72; PULSE 81; RESP 15; TEMP 98.4
== END ==
LOC: PNWHC3 12:41
PROVIDERS: ATTEND Specialist
DX: M51.36 Other intervertebral disc degeneration, lumbar region (principal); M47.816 Spondylosis without myelopathy or radiculopathy, lumbar region; M48.061 Spinal stenosis, lumbar region without neurogenic claudication; G89.29 Other chronic pain; F17.200 Nicotine dependence, unspecified, uncomplicated; F12.90 Cannabis use, unspecified, uncomplicated
CPT/HCPCS: 99211